=== PATIENT | female | born 1930 | race Caucasian/White ===

== ENCOUNTER 2017-06-02 04:34 | Inpatient (IN) | payer MEDICARE ==
[~2017-06-02] VITALS: Ht 165.1 cm; Wt 97.3 kg
[~2017-06-02 04:34] MED LIST: ACETAMINOPHEN500 MG PO; ALLOPURINOL100 MG PO; AMLODIPINE BES2.5 MG PO; ASPIR 8181 MG PO; Aspirin PO; CICLOPIROX15 GM TOP; DIOVAN HCT 3201 EAC1 PO; DIOVAN HCT 3201 EACH PO; FLEXERIL10 MG PO; FUROSEMIDE20 MG PO; GLIPIZIDE XL2.5 MG PO; GLUCOSAMINE &1 EAC1 PO; GLYBURIDE2.5 MG PO; HYDROCODON-ACE1 EACH PO; IRON325 MG PO; MACROBID 100 M100 MG PO; MELOXICAM7.5 MG PO; METFORMIN HCL500 MG PO; METOCLOPRAMIDE H5 MG PO; MULTIVITAMINS1 EAC8 PO; NAPROXEN PO; OCUVITE TABLET1 EAC1 PO; OMEPRAZOLE20 M1 PO; PRAVASTATIN SOD40 MG PO; TRIAMCINOLONE A15 G3 TOP; TYLENOL # 31 EA PO; VISION FORMULA PO; VITAMIN B-121000 MC1 PO; VOLTAREN100 GM; VOLTAREN100 GM TOP; XARELTO10 MG PO
[2017-06-02 06:13] LABS: BASOPHILS % 0.4 % (0.0-1.0); EOSINOPHILS # (AUTO) 0.2 (0.0-0.4); EOSINOPHILS % 2.2 % (0.0-6.0); HEMATOCRIT 33.1 % (34.2-44.1); HEMOGLOBIN 10.6 g/dL (12.0-16.0); LYMPHOCYTES # (AUTO) 3.5 (1.0-3.2); LYMPHOCYTES % 34.4 % (18.0-39.1); MEAN CORPUSCULAR VOLUME 90.7 fL (81-99); MONOCYTES # (AUTO) 0.8 (0.2-0.8); MONOCYTES % 7.3 % (4.4-11.3); NEUTROPHILS # (AUTO) 5.6 (2.1-6.9); NEUTROPHILS % 54.5 % (38.7-80.0); PLATELET COUNT 328 x10e3/uL (140-360); RED BLOOD COUNT 3.65 x10e6/uL (3.6-5.1); RED CELL DISTRIBUTION WIDTH 13.2 % (11.7-14.4)
[2017-06-02 06:14] LABS: BILIRUBIN,URINE NEGATIVE (NEGATIVE); CLARITY,URINE CLEAR (CLEAR); COLOR,URINE YELLOW (YELLOW); KETONES,URINE NEGATIVE (NEGATIVE); LEUKOCYTE ESTERASE ,URINE 2+ (NEGATIVE); NITRITE,URINE NEGATIVE (NEGATIVE); PROTEIN,URINE DIPSTICK NEGATIVE (NEGATIVE); URINE UROBILINOGEN 0.2 mg/dL (0.2 - 1)
[2017-06-02 06:31] LABS: BACTERIA,URINE FEW /HPF; EPITHELIAL CELLS,URINE FEW /LPF; TRANSITIONAL EPI CELLS,URINE MODERATE; WBC,URINE (MAN) 21-50 /HPF (0-5)
[2017-06-02 06:34] LABS: ALBUMIN 3.8 g/dL (3.5-5.0); ANION GAP 16.7 mmol/L (8-16); CALCIUM 9.8 mg/dL (8.4-10.2); CREATININE, SERUM 1.29 mg/dL (0.57-1.11); POTASSIUM 3.7 mmol/L (3.5-5.1)
[2017-06-02] MEDS ORDERED: CEFTRIAXONE SOD 1 GM VIAL IV STA (06:35)
[2017-06-02 06:40] LABS: CREATINE KINASE MB 1.2 ng/mL (0.00-5.00); TROPONIN I 0.03 ng/mL (0-0.300)
--- NOTE | 2017-06-02 06:48 | Diagnostic Imaging Report ---
Exam: Head CT without contrast History: Dizziness, altered mental status Comparison studies: Head CT 12/16/2016. Technique: Axial images were obtained from the skull base to the vertex. Coronal and sagittal images reconstructed from the axial data. Intravenous contrast: None Findings: Scalp: No abnormalities. Bones: No fractures, blastic or lytic lesions. Brain sulci: Appropriate for age. Ventricles: Normal in size and configuration. No hydrocephalus. Extra-axial spaces: No masses, no fluid collection. Parenchyma: No mass, acute hemorrhage or acute cortical vascular insults. A few scattered subtle hypodensities in the supratentorial white matter are nonspecific but most compatible with chronic small vessel ischemic changes. Sellar/suprasellar region: No abnormalities. Craniocervical junction: Patent foramen magnum. No Chiari one malformation. Incidental findings: Atherosclerotic calcifications in the carotid siphons. IMPRESSION: 1. No acute intracranial abnormalities. 2. Mild chronic microvascular ischemic changes. 3. No changes from the previous head CT of 12/16/2016. Signed by: Dr. Haresh Bueno M.D. on 06/02/2017 6:45 AM
[2017-06-02] MEDS ORDERED: ONDANSETRON HCL INJ 2 MG/ML VIAL IV PRN (07:00)
[2017-06-02] MEDS ORDERED: FAMOTIDINE 20 MG/2 ML VIAL IV SCH (07:00)
[2017-06-02] MEDS ORDERED: DEXTROSE 50% SYRINGE 50 ML IV PRN (07:00)
[2017-06-02] MEDS ORDERED: SODIUM CHLORIDE FLUSH 10 ML SYR INJ PRN (07:00)
--- NOTE | 2017-06-02 07:00 | Diagnostic Imaging Report ---
EXAMINATION: CHEST SINGLE (PORTABLE) INDICATION: Weakness COMPARISON: None FINDINGS: TUBES and LINES: None. LUNGS: Lungs are well inflated. Lungs are clear. There is no evidence of pneumonia or pulmonary edema. PLEURA: No pleural effusion or pneumothorax. HEART AND MEDIASTINUM: Cardiac size is mildly enlarged. There are atherosclerotic calcifications within the aorta. BONES AND SOFT TISSUES: No acute osseous lesion. Soft tissues are unremarkable. UPPER ABDOMEN: No free air under the diaphragm. IMPRESSION: No acute thoracic abnormality. Signed by: Dr. Gus Abarca M.D. on 06/02/2017 6:56 AM
[2017-06-02] MEDS: PANTOPRAZOLE SOD 40 MG TABEC PO SCH (07:30)
[2017-06-02] MEDS: CEFTRIAXONE SOD 1 GM VIAL IV SCH (08:12)
[2017-06-02] MEDS: INSULIN REGULAR, HUMAN 100 UNIT/1 ML 3ML VIAL SQ SCH ×4 (08:12→21:21)
[2017-06-02] MEDS: ALLOPURINOL 100 MG TAB PO SCH (08:13)
[2017-06-02] MEDS: MULTIVITAMINS/MINERALS TAB PO SCH (08:13)
[2017-06-02] MEDS: FERROUS SULFATE 325 MG TAB PO SCH (08:13)
[2017-06-02] MEDS ORDERED: ASPIRIN 81 MG CHEW TAB PO SCH (09:00)
[2017-06-02] MEDS: ASPIRIN 325 MG TAB EC PO SCH ×2 (09:00→17:11)
[2017-06-02 09:05] LABS: CHOL/HDL RATIO 3.4 (3.0-3.6)
[2017-06-02 10:00] VITALS: BP 148/67
[2017-06-02 10:07] VITALS: BP 148/67
[2017-06-02 11:20] VITALS: BP 177/72
--- NOTE | 2017-06-02 11:31 | History and Physical ---
PRIMARY CARE PHYSICIAN: Dr. Aram Nielsen CHIEF COMPLAINT: Confusion and chills. HISTORY OF PRESENT ILLNESS: This is an 86-year-old woman with a history of urinary tract infection, now developing confusion about a week ago, which continues to be febrile. The patient now developing chills and more confusion. Brought to the hospital and found to have a urinary tract infection. There is concern for other abnormalities. She is admitted for further evaluation and management. The patient denies any chest pain or shortness of breath. PAST MEDICAL HISTORY: Diabetes mellitus, type 2, hypertension, vertigo, and urinary tract infection. PAST SURGICAL HISTORY: Hip surgery times 2, hysterectomy. ALLERGIES: PER ELECTRONIC MEDICAL RECORD. FAMILY HISTORY/SOCIAL HISTORY: Patient is . She has 4 children. No alcohol or illicits or cigarettes. MEDICATIONS: Per electronic medical records. REVIEW OF SYSTEMS: Denies any dizziness at this time. PHYSICAL EXAMINATION GENERAL: A tired-appearing woman resting in bed. HEENT: Anicteric. Pupils respond to light. No oral lesions. CARDIOVASCULAR: Normal S1 and S2. LUNGS: Moderate breath sounds. ABDOMEN: Soft, nontender and nondistended. EXTREMITIES: No edema or calf tenderness. NEUROLOGICAL: Alert and oriented times 3. She moves all extremities. SKIN: Dry. PSYCHIATRIC: Normal affect. LABS: Reviewed. MEDICATIONS: Reviewed. ASSESSMENT AND PLAN: This is an 86-year-old woman with: 1. Urinary tract infection: Continue ceftriaxone. Follow up cultures. 2. Acute kidney injury: Rehydrate and reassess. 3. Diabetes mellitus, type 2: Will obtain hemoglobin A1c and lipid panel. Will also resume her home medications. 4. Hypertension: Continue home medication regimen. 5. Gout: Continue allopurinol. 6. Normocytic anemia: Moderate. We will monitor. 7. Confusion a week ago: Computerized tomography scan of the brain is negative for any acute findings. 8. Physical deconditioning: Physical therapy. 9. Prophylaxis: Will use Protonix and sequential compression devices. 10. Disposition: Physical therapy. Intravenous antibiotics. Follow up cultures. Job#: [id number] [place]
[2017-06-02] MEDS: CYANOCOBALAMIN 1,000 MCG TAB PO SCH (12:45)
[2017-06-02] MEDS: OCUVITE PRESERVISION TABLET PO SCH (12:45)
[2017-06-02 15:01] LABS: CREATINE KINASE MB 1.4 ng/mL (0.00-5.00); TROPONIN I 0.022 ng/mL (0-0.300)
[2017-06-02 15:26] VITALS: BP 139/70
[2017-06-02 19:58] VITALS: BP 169/69
[2017-06-02 20:00] VITALS: BP 169/69
[2017-06-02] MEDS ORDERED: METOPROLOL TARTRATE INJ 1 MG/ML VIAL IV ONE (20:15)
[2017-06-02] MEDS ORDERED: AMLODIPINE BESYLATE 5 MG TAB PO STA (21:07)
[2017-06-02] MEDS: HYDROCHLOROTHIAZIDE 25 MG TAB PO SCH (21:17)
[2017-06-02] MEDS: PRAVASTATIN 20 MG TAB PO SCH (21:18)
[2017-06-02] MEDS: VALSARTAN 160 MG TAB PO SCH (21:18)
[2017-06-02 23:01] LABS: CREATINE KINASE MB 1.5 ng/mL (0.00-5.00); TROPONIN I 0.02 ng/mL (0-0.300)
[2017-06-03] VITALS (9 sets, daily range): BP systolic 135–169; BP diastolic 62–91
[2017-06-03 06:17] LABS: CHOL/HDL RATIO 3.3 (3.0-3.6)
[2017-06-03] MEDS: CALCIUM CARBONATE 500 MG CHEWABLE TABS PO SCH ×4 (06:46→21:17)
--- NOTE | 2017-06-03 07:18 | Progress Note ---
DATE: June 03, 2017 TIME: 05:54 a.m. OVERNIGHT: Patient had some dizziness and epigastric discomfort. REVIEW OF SYSTEMS: Denies any chest pain. PHYSICAL EXAMINATION VITAL SIGNS: Reviewed. GENERAL: A tired-appearing woman, resting in bed. HEENT: Anicteric. CARDIOVASCULAR: Normal S1 and S2. Loud murmurs heard. ABDOMEN: Soft, nontender, nondistended. EXTREMITIES: No edema or calf tenderness. NEUROLOGICAL: Alert and oriented times 3. Moves all extremities. SKIN: Dry. PSYCHIATRIC: Flat affect. LABS: Reviewed. MEDICATIONS: Reviewed. ASSESSMENT: An 86-year-old woman with: 1. Urinary tract infection. 2. Acute kidney injury. 3. Diabetes mellitus type 2. 4. Dizziness. 5. Hypertension . 6. Epigastric discomfort. 7. Gout. 8. Normocytic anemia. 9. Confusion 1 week ago. 10. Physical deconditioning. PLAN 1. Hemoglobin A1c was 6.5, LDL 69 and triglycerides of 201, all at goal. 2. Acute kidney injury. Will follow up renal function this morning. 3. Continue physical therapy. 4. Pepcid and Tums for reflux symptoms. 5. All cultures remain negative today. 6. CT of the brain negative for any acute findings. 7. Will continue oral Protonix. 8. Continue IV ceftriaxone. 9. Continue SCD. 10. Follow up orthostatic vitals this morning. Possible discharge later. Job#: [id number]
[2017-06-03] MEDS ORDERED: VALSARTAN 160 MG TAB PO SCH (09:00)
[2017-06-03] MEDS ORDERED: HYDROCHLOROTHIAZIDE 25 MG TAB PO SCH (09:00)
[2017-06-03] MEDS ORDERED: AMLODIPINE BESYLATE 5 MG TAB PO ONE (09:00)
[2017-06-03] MEDS ORDERED: METOPROLOL TARTRATE 50 MG TAB PO SCH (09:00)
[2017-06-03] MEDS: PANTOPRAZOLE SOD 40 MG TABEC PO SCH (09:22)
[2017-06-03] MEDS: HYDROCHLOROTHIAZIDE 25 MG TAB PO SCH (09:23)
[2017-06-03] MEDS: FERROUS SULFATE 325 MG TAB PO SCH (09:23)
[2017-06-03] MEDS: ALLOPURINOL 100 MG TAB PO SCH (09:23)
[2017-06-03] MEDS: ASPIRIN 325 MG TAB EC PO SCH ×2 (09:23→17:00)
[2017-06-03] MEDS: INSULIN REGULAR, HUMAN 100 UNIT/1 ML 3ML VIAL SQ SCH ×4 (09:23→21:00)
[2017-06-03] MEDS: OCUVITE PRESERVISION TABLET PO SCH (09:23)
[2017-06-03] MEDS: MULTIVITAMINS/MINERALS TAB PO SCH (09:23)
[2017-06-03] MEDS: CYANOCOBALAMIN 1,000 MCG TAB PO SCH (09:23)
[2017-06-03] MEDS: VALSARTAN 160 MG TAB PO SCH (09:23)
[2017-06-03] MEDS: CEFTRIAXONE SOD 1 GM VIAL IV SCH (11:15)
[2017-06-03] MEDS: PRAVASTATIN 20 MG TAB PO SCH (21:17)
[2017-06-04] VITALS (10 sets, daily range): BP systolic 128–162; BP diastolic 58–78
[2017-06-04] MEDS: CEFTRIAXONE SOD 1 GM VIAL IV SCH (06:10)
[2017-06-04] MEDS: PANTOPRAZOLE SOD 40 MG TABEC PO SCH (08:59)
[2017-06-04] MEDS: ASPIRIN 325 MG TAB EC PO SCH ×2 (08:59→16:50)
[2017-06-04] MEDS: INSULIN REGULAR, HUMAN 100 UNIT/1 ML 3ML VIAL SQ SCH ×4 (08:59→21:46)
[2017-06-04] MEDS: MULTIVITAMINS/MINERALS TAB PO SCH (09:00)
[2017-06-04] MEDS: CYANOCOBALAMIN 1,000 MCG TAB PO SCH (09:00)
[2017-06-04] MEDS: CALCIUM CARBONATE 500 MG CHEWABLE TABS PO SCH ×3 (09:00→21:45)
[2017-06-04] MEDS: OCUVITE PRESERVISION TABLET PO SCH (09:00)
[2017-06-04] MEDS: HYDROCHLOROTHIAZIDE 25 MG TAB PO SCH (09:00)
[2017-06-04] MEDS: VALSARTAN 160 MG TAB PO SCH (09:00)
[2017-06-04] MEDS: ALLOPURINOL 100 MG TAB PO SCH (09:00)
[2017-06-04] MEDS: FERROUS SULFATE 325 MG TAB PO SCH (09:00)
[2017-06-04 09:17] LABS: ANION GAP 14.1 mmol/L (8-16); CALCIUM 10.1 mg/dL (8.4-10.2); CREATININE, SERUM 1.21 mg/dL (0.57-1.11); MAGNESIUM 1.7 MG/DL (1.3-2.1); PHOSPHORUS 4.1 MG/DL (2.3-4.7); POTASSIUM 4.1 mmol/L (3.5-5.1)
[2017-06-04] MEDS ORDERED: SODIUM CHLORIDE 0.9% 1000ML 500 ML IV SCH (11:45)
[2017-06-04] MEDS: SODIUM CHLORIDE 0.9% 1000ML 1,000 ML IV SCH (13:00)
[2017-06-04] MEDS: PRAVASTATIN 20 MG TAB PO SCH (21:45)
[2017-06-05] VITALS (29 sets, daily range): BP systolic 111–170; BP diastolic 43–72
[2017-06-05] MEDS: SODIUM CHLORIDE 0.9% 1000ML 1,000 ML IV SCH ×2 (00:34→21:01)
[2017-06-05 06:04] LABS: BASOPHILS % 0.3 % (0.0-1.0); EOSINOPHILS # (AUTO) 0.2 (0.0-0.4); EOSINOPHILS % 1.8 % (0.0-6.0); HEMATOCRIT 28.8 % (34.2-44.1); HEMOGLOBIN 9.5 g/dL (12.0-16.0); LYMPHOCYTES # (AUTO) 3.3 (1.0-3.2); LYMPHOCYTES % 29.1 % (18.0-39.1); MEAN CORPUSCULAR HEMOGLOBIN 29.4 pg (28-32); MEAN CORPUSCULAR VOLUME 89.2 fL (81-99); MONOCYTES # (AUTO) 0.9 (0.2-0.8); MONOCYTES % 7.6 % (4.4-11.3); NEUTROPHILS # (AUTO) 6.8 (2.1-6.9); NEUTROPHILS % 59.7 % (38.7-80.0); PLATELET COUNT 272 x10e3/uL (140-360); RED BLOOD COUNT 3.23 x10e6/uL (3.6-5.1)
[2017-06-05] MEDS: CEFTRIAXONE SOD 1 GM VIAL IV SCH (06:51)
[2017-06-05] MEDS ORDERED: SODIUM CHLORIDE 0.9% 1000ML 500 ML IV STA (07:27)
--- NOTE | 2017-06-05 07:45 | Progress Note ---
DATE: June 04, 2017 TIME: 6 a.m. OVERNIGHT: Still dizzy. REVIEW OF SYSTEMS: Denies any chest pain. PHYSICAL EXAMINATION VITAL SIGNS: Reviewed. GENERAL: A tired-appearing woman resting in bed. HEENT: Anicteric. CARDIOVASCULAR: Normal S1 and S2. LUNGS: Moderate breath sounds. ABDOMEN: Soft, nontender and nondistended. EXTREMITIES: No edema. SKIN: Dry. PSYCHIATRIC: Flat affect. LABS: Reviewed. MEDICATIONS: Reviewed. ASSESSMENT: An 86-year-old woman with: 1. Urinary tract infection. 2. Acute kidney injury. 3. Diabetes mellitus, type 2. 4. Dizziness. 5. Hypertension. 6. Epigastric discomfort. 7. Gout. 8. Normocytic anemia. 9. Confusion. 10. Physical deconditioning. PLAN 1. Continue antibiotics. 2. Continue IV fluids. 3. Orthostatics are positive. Give IV fluid bolus and IV fluids. 4. Hemoglobin A1c 6.5, LDL 69. 5. Reassess orthostatic vitals tomorrow morning. 6. Renal function improving. 7. Physical therapy. Job#: [id number] [place]
--- NOTE | 2017-06-05 07:56 | Progress Note ---
DATE: June 05, 2017 TIME: 7:30 a.m. OVERNIGHT: Dizziness has resolved, but now mildly short of breath. REVIEW OF SYSTEMS: Denies any chest pain. PHYSICAL EXAMINATION: VITAL SIGNS: Reviewed. GENERAL APPEARANCE: Tired-appearing woman resting in bed. HEENT: Anicteric. CARDIOVASCULAR: Normal S1 and S2. LUNGS: Bilateral breath sounds. ABDOMEN: Soft, nontender, nondistended. EXTREMITIES: No edema or calf tenderness. NEUROLOGICAL: Alert and oriented x3. Moving all extremities. SKIN: Dry. PSYCHIATRIC: Normal affect. LABS: Reviewed. MEDICATIONS: Reviewed. ASSESSMENT: An 86-year-old woman: 1. Escherichia coli urinary tract infection. 2. Acute kidney injury. 3. Diabetes mellitus type 2. 4. Dizziness/benign paroxysmal positional vertigo. 5. Hypertension. 6. Bradycardia. 7. Epigastric discomfort. 8. Gout. 9. Shortness of breath. 10. Confusion . 11. Physical deconditioning. PLAN: 1. Hemoglobin A1c 6.5, LDL 69, triglycerides 201. 2. Continue ceftriaxone for E. coli urinary tract infection. 3. Continue IV fluids. 4. Obtain echocardiogram and cardiology consultation. Obtain chest x-ray. 5. Meclizine q.8h. for dizziness and BPPV. 6. Physical therapy. 7. Incentive spirometry. Job#: [id number]
[2017-06-05] MEDS: VALSARTAN 160 MG TAB PO SCH (08:53)
[2017-06-05] MEDS: FERROUS SULFATE 325 MG TAB PO SCH (08:53)
[2017-06-05] MEDS: MULTIVITAMINS/MINERALS TAB PO SCH (08:53)
[2017-06-05] MEDS: PANTOPRAZOLE SOD 40 MG TABEC PO SCH (08:53)
[2017-06-05] MEDS: ASPIRIN 325 MG TAB EC PO SCH ×2 (08:54→17:00)
[2017-06-05] MEDS: CALCIUM CARBONATE 500 MG CHEWABLE TABS PO SCH ×3 (08:54→20:39)
[2017-06-05] MEDS: OCUVITE PRESERVISION TABLET PO SCH (08:54)
[2017-06-05] MEDS: ALLOPURINOL 100 MG TAB PO SCH (08:54)
[2017-06-05] MEDS: CYANOCOBALAMIN 1,000 MCG TAB PO SCH (08:54)
[2017-06-05] MEDS: INSULIN REGULAR, HUMAN 100 UNIT/1 ML 3ML VIAL SQ SCH ×4 (09:10→20:41)
--- NOTE | 2017-06-05 10:36 | Diagnostic Imaging Report ---
PROCEDURE:CHEST SINGLE (PORTABLE) TECHNIQUE:Portable AP chest INDICATION:Shortness of breath COMPARISON:[facility], DX, CHEST SINGLE (PORTABLE), 06/02/2017, 6:23. FINDINGS: The lungs are clear and symmetrically inflated. No pleural effusions. Prominent cardiac silhouette with mild tortuosity of the thoracic aorta. Mild aortic arch calcification. Normal central vasculature. Intact skeleton. CONCLUSION: Mild cardiomegaly without evidence of pulmonary edema. Dictated by: Gregory Madrigal M.D. on 06/05/2017 at 10:45 Electronically approved by: Gregory Madrigal M.D. on 06/05/2017 at 10:45
--- NOTE | 2017-06-05 11:30 | Consultation ---
DATE OF CONSULTATION: June 05, 2017 REASON FOR CONSULTATION: Hypertension and bradycardia. CONSULTING PHYSICIAN: Dr. Blake Kohler. HISTORY OF PRESENTING ILLNESS: This is an 86-year-old female that presented with confusion and dizziness. According to the patient and family at the bedside, she stated that she had been having dizziness been going on for over 1 month. She stands up at home; she feels like she is about to fall and she has been confused off and on. Thus, she was brought in to the emergency room for evaluation. This morning, she was found to have dizziness, symptomatic bradycardia, hypertension, and cardiology was consulted. She was given some NS bolus and blood pressure came back up. She also complained of epigastric pain that comes and goes. She was also found to have UTI and she is on antibiotics for that. She denies any palpitation, any headache or diaphoresis. EKG showed AV block 2:1. PAST MEDICAL HISTORY: Diabetes, hypertension, diabetic neuropathy, vertigo, UTI, gout, anemia, and renal insufficiency. PAST SURGICAL HISTORY: Hip surgery x2 and hysterectomy. FAMILY HISTORY: Hypertension and diabetes. SOCIAL HISTORY: She lives at home by herself. No smoking, no drinking. MEDICATIONS: See med list. ALLERGIES: SHE IS ALLERGIC TO ERYTHROMYCIN. REVIEW OF SYSTEMS: Negative except as mentioned above. Is positive for symptomatic bradycardia. PHYSICAL EXAMINATION VITAL SIGNS: Temperature 97, heart rate 47, blood pressure 123/60, respirations 16. Oxygen saturation 95% on room air. GENERAL: She is alert, awake, and oriented x3. HEENT: Mucous membrane moist. NECK: Supple. LUNGS: With decreased breath sounds. CARDIOVASCULAR: Irregular. ABDOMEN: Soft. NEUROLOGICAL: Intact. She is able to move all extremities. EXTREMITIES: Bilateral lower extremities with trace edema. LABS: Sodium 137, potassium 4.1, chloride 101, CO2 26, BUN 22, creatinine 1.21, glucose 187. White blood cell 11.3, hemoglobin 9.5, hematocrit 28.8, platelet 272,000. IMPRESSION 1. 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 2. Dizziness. 3. Symptomatic bradycardia. 4. History of gout. 5. Diabetes. 6. Renal insufficiency. 7. Hypertension. ASSESSMENT PLAN: Will get an echo to assess the LV and the valve function. Will get bilateral carotid Doppler. Check orthostatic blood pressure. Possible permanent pacemaker placement if family agrees. Avoid AV blockers. Further cardiac workup pending clinical course. Thank you for this consultation. Dictated by Nancy Ibarra NP Job#: [id number] [place]
[2017-06-05] MEDS ORDERED: LIDOCAINE 1% W/EPINEPHRINE 20 ML VIAL ONE (11:46)
[2017-06-05] MEDS ORDERED: IOPAMIDOL 300MG/ML 50ML INFUS..BTL IV ONE (11:47)
[2017-06-05] MEDS ORDERED: SODIUM CHLORIDE 0.9% 500ML 1,000 ML ONE (11:47)
[2017-06-05] MEDS ORDERED: BACITRACIN 50,000 UNIT VIAL ONE (11:58)
[2017-06-05] MEDS ORDERED: SODIUM CHLORIDE 0.9% 1000ML 1,000 ML ONE (11:58)
[2017-06-05] MEDS ORDERED: FENTANYL CITRATE/PF 100MCG/2 ML INJ ONE (12:22)
[2017-06-05] MEDS ORDERED: MIDAZOLAM HCL 2 MG/2 ML VIAL ONE (12:22)
[2017-06-05] MEDS ORDERED: CEFAZOLIN SOD 2 GM/D5W 50ML 50 ML IV ONE (12:25)
[2017-06-05] MEDS: MECLIZINE HCL 12.5 MG TAB PO SCH ×2 (14:00→21:01)
[2017-06-05] MEDS: PRAVASTATIN 20 MG TAB PO SCH (20:39)
[2017-06-06] VITALS (25 sets, daily range): BP systolic 113–146; BP diastolic 45–74
[2017-06-06 05:37] LABS: BASOPHILS % 0.4 % (0.0-1.0); EOSINOPHILS # (AUTO) 0.2 (0.0-0.4); HEMATOCRIT 27.8 % (34.2-44.1); HEMOGLOBIN 9.1 g/dL (12.0-16.0); LYMPHOCYTES # (AUTO) 2.8 (1.0-3.2); LYMPHOCYTES % 28.9 % (18.0-39.1); MEAN CORPUSCULAR HEMOGLOBIN 29.6 pg (28-32); MEAN CORPUSCULAR HGB CONC 32.7 g/dL (31-35); MEAN CORPUSCULAR VOLUME 90.6 fL (81-99); MONOCYTES % 10.3 % (4.4-11.3); NEUTROPHILS # (AUTO) 5.5 (2.1-6.9); NEUTROPHILS % 57.8 % (38.7-80.0); PLATELET COUNT 291 x10e3/uL (140-360); RED BLOOD COUNT 3.07 x10e6/uL (3.6-5.1); RED CELL DISTRIBUTION WIDTH 13.2 % (11.7-14.4)
[2017-06-06] MEDS: MECLIZINE HCL 12.5 MG TAB PO SCH ×3 (06:01→21:57)
[2017-06-06] MEDS: CEFTRIAXONE SOD 1 GM VIAL IV SCH (06:01)
[2017-06-06] MEDS: PANTOPRAZOLE SOD 40 MG TABEC PO SCH (07:30)
[2017-06-06] MEDS: INSULIN REGULAR, HUMAN 100 UNIT/1 ML 3ML VIAL SQ SCH ×4 (07:30→21:00)
--- NOTE | 2017-06-06 08:22 | Progress Note ---
DATE: June 06, 2017 TIME: 6:30 a.m. OVERNIGHT: Patient had permanent pacemaker placed. REVIEW OF SYSTEMS: Denies any shortness of breath. PHYSICAL EXAMINATION VITAL SIGNS: Have been reviewed. GENERAL: A tired-appearing woman resting in bed. HEENT: Anicteric. CARDIOVASCULAR: Normal S1 and S2. She has a left-sided chest cardiac device in place with dressing overlying. LUNGS: Moderate breath sounds. ABDOMEN: Soft, nontender and nondistended. EXTREMITIES: No edema or calf tenderness. NEUROLOGICAL: Alert and oriented times 3. Moving all extremities. SKIN: Dry. PSYCHIATRIC: Normal affect. LABS: Reviewed. MEDICATIONS: Reviewed. ASSESSMENT AND PLAN: This is an 86-year-old woman with: 1. Atrioventricular block 2:1: Status post permanent pacemaker placement. 2. Symptomatic bradycardia. 3. Escherichia coli urinary tract infection. 4. Acute kidney injury. 5. Diabetes mellitus, type 2. 6. Dizziness/BPV. 7. Hypertension. 8. Gout. 9. Physical deconditioning. 10. Acute delirium. PLAN 1. Patient is status post permanent pacemaker placement. Will continue to monitor. 2. Continue ceftriaxone for E. coli urinary tract infection. 3. Patient received fluids for dehydration and positive orthostatic hypotension. 4. Continue meclizine p.r.n. 5. Continue physical therapy. 6. Hemoglobin is stable this morning. 7. Glucose is controlled at 139-182. 8. Obtain BMP to reassess renal function. 9. Follow up 2-D echocardiogram report. 10. Critical care time more than 35 minutes. Job#: [id number] [place]
[2017-06-06] MEDS: SODIUM CHLORIDE 0.9% 1000ML 1,000 ML IV SCH (08:27)
[2017-06-06] MEDS: CYANOCOBALAMIN 1,000 MCG TAB PO SCH (09:11)
[2017-06-06] MEDS: MULTIVITAMINS/MINERALS TAB PO SCH (09:11)
[2017-06-06] MEDS: ASPIRIN 325 MG TAB EC PO SCH ×2 (09:11→16:33)
[2017-06-06] MEDS: CALCIUM CARBONATE 500 MG CHEWABLE TABS PO SCH ×3 (09:11→21:12)
[2017-06-06] MEDS: OCUVITE PRESERVISION TABLET PO SCH (09:11)
[2017-06-06] MEDS: FERROUS SULFATE 325 MG TAB PO SCH (09:11)
[2017-06-06] MEDS: ALLOPURINOL 100 MG TAB PO SCH (09:11)
[2017-06-06] MEDS: VALSARTAN 160 MG TAB PO SCH (11:18)
[2017-06-06] MEDS: CEPHALEXIN 500 MG CAP PO SCH ×2 (14:37→21:57)
--- NOTE | 2017-06-06 16:16 | Operative Report ---
DATE OF PROCEDURE: June 05, 2017 PROCEDURE PERFORMED: DDD pacemaker implantation. INDICATIONS: Second-degree AV block with symptoms. DESCRIPTION OF PROCEDURE: After informed consent, patient was brought to the cardiac catheterization laboratory and placed on the table. Left upper chest was painted and draped in a sterile fashion. Patient was given 2 g of Ancef prior to the start of the procedure. Lidocaine was injected into the left upper chest for local anesthesia. The incision was made with #11 blade. A pocket was fashioned by sharp and blunt dissection. The left subclavian vein was accessed by Seldinger technique and a guidewire was placed. Another access of the left subclavian was made and another guidewire was placed. A 7-Samoan sheath was introduced into one of the retained guidewires. A ventricular lead was advanced through the sheath and placed into the right ventricular apex. The lead was screwed in by active fixation. Thresholds were checked. The sheath was peeled off. Another 7-Samoan sheath was introduced over the previously retained guidewire. An atrial lead was advanced through the sheath and anchored to the atrial muscle by active fixation. Thresholds were checked. The sheath was peeled off. The leads were anchored to the underlying muscle using 0 silk. The pocket was irrigated with antibiotic solution. The leads were connected to the generator and the generator was anchored to the underlying muscle using 0 silk. The subcutaneous tissue was closed using 2-0 Vicryl and skin was closed using 4-0 Vicryl. The wound was cleaned and dressed in a sterile fashion. Patient tolerated the procedure without any complication. REPORT: Skin Lifter Bacon is [employer], model number was L311, serial number was [id number]. Model name was [employer] DR HAY[place]OD. LEAD DATA: Atrial lead, model number was 7740. Serial number was [id number]. Atrial lead model number was 7741. Serial number was [id number]. MEASURED DATA: Right atrium intrinsic was 3.2 millivolts. Threshold was at 1 volt at 0.5 milliseconds. Impedance was 634. Right ventricular intrinsic was 10.6 millivolts. Threshold was 1.1 volts at 0.5 milliseconds. Impedance was 907. Current in the right atrium was 1.6 milliamps and the ventricle is 1.3 milliamps. Low rate limit was 60. Upper rate limit was 120. PROGRAM PARAMETERS: Right atrium was 0.75 millivolts and output is 3.4 volts at 0.4 milliseconds. Right ventricle sensitivity was 2.5 millivolts, program was 3.5 volts at 0.4 milliseconds. Job#: [id number] [place]
[2017-06-06] MEDS: PRAVASTATIN 20 MG TAB PO SCH (21:12)
[2017-06-07] VITALS (7 sets, daily range): BP systolic 126–147; BP diastolic 60–80
[2017-06-07] MEDS ORDERED: TRAMADOL HCL 50 MG TAB PO PRN (00:45)
[2017-06-07] MEDS: CEPHALEXIN 500 MG CAP PO SCH (06:22)
[2017-06-07] MEDS: CEFTRIAXONE SOD 1 GM VIAL IV SCH (06:22)
[2017-06-07] MEDS: MECLIZINE HCL 12.5 MG TAB PO SCH (06:24)
[2017-06-07] MEDS: PANTOPRAZOLE SOD 40 MG TABEC PO SCH (07:30)
[2017-06-07] MEDS: INSULIN REGULAR, HUMAN 100 UNIT/1 ML 3ML VIAL SQ SCH ×2 (07:30→11:30)
[2017-06-07] MEDS: VALSARTAN 160 MG TAB PO SCH (09:00)
[2017-06-07] MEDS: ASPIRIN 325 MG TAB EC PO SCH (09:00)
[2017-06-07] MEDS: CYANOCOBALAMIN 1,000 MCG TAB PO SCH (09:00)
[2017-06-07] MEDS: OCUVITE PRESERVISION TABLET PO SCH (09:00)
[2017-06-07] MEDS: FERROUS SULFATE 325 MG TAB PO SCH (09:00)
[2017-06-07] MEDS: ALLOPURINOL 100 MG TAB PO SCH (09:00)
[2017-06-07] MEDS: MULTIVITAMINS/MINERALS TAB PO SCH (09:00)
[2017-06-07] MEDS: CALCIUM CARBONATE 500 MG CHEWABLE TABS PO SCH (09:00)
[2017-06-07] MEDS ORDERED: ULTRAM 50MG50 MG PO (09:06)
[2017-06-07 11:06] LABS: ANION GAP 13.2 mmol/L (8-16); CALCIUM 9.3 mg/dL (8.4-10.2); CREATININE, SERUM 1.09 mg/dL (0.57-1.11); POTASSIUM 4.2 mmol/L (3.5-5.1)
== END 2017-06-07 13:17 | disposition home or self-care (01) | DRG 243 ==
LOC: ER 04:34 → ERHOLD 06:51 → IMCU 08:13 → ICU 06-05 14:15 → OBSVTOIN 06-05 16:21 → MED/SURG2 06-06 11:31
PROVIDERS: ADMIT Internal Medicine; ATTEND Internal Medicine
PROC: 0JH606Z Insertion of Pacemaker, Dual Chamber into Chest Subcutaneous Tissue and Fascia, Open Approach (ICD-10-PCS; principal; 2017-06-05)
PROC: 02HK3JZ Insertion of Pacemaker Lead into Right Ventricle, Percutaneous Approach (ICD-10-PCS; 2017-06-05)
PROC: 02H63JZ Insertion of Pacemaker Lead into Right Atrium, Percutaneous Approach (ICD-10-PCS; 2017-06-05)
DX: I44.1 Atrioventricular block, second degree (principal); N39.0 Urinary tract infection, site not specified; N17.9 Acute kidney failure, unspecified; E11.40 Type 2 diabetes mellitus with diabetic neuropathy, unspecified; B96.20 Unspecified Escherichia coli [E. coli] as the cause of diseases classified elsewhere; I10 Essential (primary) hypertension; D64.9 Anemia, unspecified; M10.9 Gout, unspecified; R41.0 Disorientation, unspecified; E86.0 Dehydration; H81.10 Benign paroxysmal vertigo, unspecified ear; Z79.82 Long term (current) use of aspirin; Z88.1 Allergy status to other antibiotic agents
CPT/HCPCS: 36415; 70450; 71010; 80048; 80053; 80061; 81001; 82550; 82553; 82948; 83036; 83735; 84100; 84484; 85025; 87086; 87186; 93005; 93306; 93880; 96360; 96372; 99285; C1898; G0378; J0696; J2250; J2405; J7030; J7040

== ENCOUNTER 2017-06-26 18:32 | Emergency (ER) | payer MEDICARE ==
[~2017-06-26] VITALS: Ht 165.1 cm; Wt 97.1 kg
[~2017-06-26 18:32] MED LIST changes: +ULTRAM 50MG50 MG PO
--- OUTSIDE RECORDS SUMMARY | 2017-06-26 18:35 | XMS REPORT ---
[facility] Address Unknown Phone Unavailable Care Team Providers Care Slots Manager Name Role Phone MYA MILLARD Unavailable Unavailable Problems This patient has no known problems. Allergies, Adverse Reactions, Alerts This patient has no known allergies or adverse reactions. Medications This patient has no known medications. Results Test Description Test Time Test Comments Text Results Atomic Results Result Comments CHEST SINGLE (PORTABLE) [facility] [address] [address] Patient Name: SHERLY CASTELLANOS MR #: [id number] : 1930 Age/Sex: 86/F Req #: [id number] Adm Physician: MYA MILLARD MD Ordered by: MYA MILLARD MD Report #: [id number] Location: [facility] Room/Bed: [place] [address] _ Procedure: [id number] DX/CHEST SINGLE (PORTABLE) Exam Date : 06/05/17 Exam Time: 1015 REPORT STATUS: Signed PROCEDURE: CHEST SINGLE (PORTABLE) TECHNIQUE: Portable AP chest INDICATION: Shortness of breath COMPARISON: [facility], DX , CHEST SINGLE (PORTABLE), 06/02/2017, 6:23. FINDINGS: The lungs are clear and symmetrically inflated. No pleural effusions. Prominent cardiac silhouette with mild tortuosity of the thoracic aorta. Mild aortic arch calcification. Normal central vasculature. Intact skeleton. CONCLUSION: Mild cardiomegaly without evidence of pulmonary edema. Dictated by: Mark Madrigal M.D. on 06/05/2017 at 10:45 Electronically approved by: Mark Madrigal M.D. on 06/05/2017 at 10:45 Dictated By: MARK MADRIGAL MD 1045 Transcribed By: VERITO on 06/05/17 1045 COPY TO: MYA MILLARD MD CT BRAIN WO [place] [address] Patient Name: SHERLY CASTELLANOS MR #: [id number] : 1930 Age/Sex: 86/F Req #: [id number] Adm Physician: Ordered by: STEVE BURGER MD Report #: [id number] Location: ER Room/Bed: Procedure: [id number] CT/CT BRAIN WO Exam Date: 06/02/17 Exam Time: 0610 REPORT STATUS: Signed Exam: Head CT without contrast History: Dizziness, altered mental status Comparison studies: Head CT 12/16/2016. Technique: Axial images were obtained from the skull base to the vertex. Coronal and sagittal images reconstructed from the axial data. Intravenous contrast: None Findings: Scalp: No abnormalities. Bones: No fractures, blastic or lytic lesions. Brain sulci: Appropriate for age. Ventricles: Normal in size and configuration. No hydrocephalus. Extra-axial spaces: No masses, no fluid collection. Parenchyma: No mass, acute hemorrhage or acute cortical vascular insults. A few scattered subtle hypodensities in the supratentorial white matter are nonspecific but most compatible with chronic small vessel ischemic changes. Sellar/suprasellar region: No abnormalities. Craniocervical junction: Patent foramen magnum. No Chiari one malformation. Incidental findings: Atherosclerotic calcifications in the carotid siphons. IMPRESSION: 1. No acute intracranial abnormalities. 2. Mild chronic microvascular ischemic changes. 3. No changes from the previous head CT of 12/16/2016. Signed by: Dr. Anant Bueno M.D. on 06/02/2017 6:45 AM Dictated By: ANANT BUENO MD 4 Transcribed By: NEO on 06/02/17644 COPY TO: STEVE BURGER MD CHEST SINGLE (PORTABLE) [place] [address] Patient Name: SHERLY CASTELLANOS MR #: [id number] : 1930 Age/Sex: 86/F Req #: [id number] Adm Physician: MYA MILLARD MD Ordered by: STEVE BURGER MD Report #: [id number] Location: [facility] Room/Bed: [place] [address] Procedure: [id number] DX/CHEST SINGLE ( PORTABLE) Exam Date: 06/02/17 Exam Time: 617 REPORT STATUS: Signed EXAMINATION: CHEST SINGLE (PORTABLE) INDICATION: Weakness COMPARISON: None FINDINGS: TUBES and LINES: None. LUNGS: Lungs are well inflated. Lungs are clear. There is no evidence of pneumonia or pulmonary edema. PLEURA: No pleural effusion or pneumothorax. HEART AND MEDIASTINUM: Cardiac size is mildly enlarged. There are atherosclerotic calcifications within the aorta. BONES AND SOFT TISSUES: No acute osseous lesion. Soft tissues are unremarkable. UPPER ABDOMEN: No free air under the diaphragm. IMPRESSION: No acute thoracic abnormality. Signed by: Dr. Gus Abarca M.D. on 06/02/2017 6:56 AM Dictated By: GUS GRIFFITHS MD 5 Transcribed By: NEO on 06/02/17655 COPY TO: STEVE BURGER MD
[2017-06-26] MEDS ORDERED: OXYMETAZOLINE HCL 0.05% NAS 1 SPRAY BTL ONE (18:58)
[2017-06-26] MEDS ORDERED: OXYMETAZOLINE HCL 0.05% NAS 1 SPRAY BTL SCH (19:15)
[2017-06-26 19:22] LABS: BASOPHILS # (AUTO) 0.1 (0.0-0.1); BASOPHILS % 0.5 % (0.0-1.0); EOSINOPHILS # (AUTO) 0.3 (0.0-0.4); EOSINOPHILS % 2.6 % (0.0-6.0); HEMATOCRIT 30.6 % (34.2-44.1); HEMOGLOBIN 9.8 g/dL (12.0-16.0); LYMPHOCYTES # (AUTO) 3.5 (1.0-3.2); MEAN CORPUSCULAR HEMOGLOBIN 29.3 pg (28-32); MEAN CORPUSCULAR VOLUME 91.6 fL (81-99); MONOCYTES # (AUTO) 0.7 (0.2-0.8); MONOCYTES % 6.9 % (4.4-11.3); NEUTROPHILS # (AUTO) 5.9 (2.1-6.9); NEUTROPHILS % 56.5 % (38.7-80.0); PLATELET COUNT 400 x10e3/uL (140-360); RED BLOOD COUNT 3.34 x10e6/uL (3.6-5.1); RED CELL DISTRIBUTION WIDTH 13.8 % (11.7-14.4)
[2017-06-26 19:33] LABS: INR 0.97; PROTHROMBIN TIME 13.4 seconds (11.9-14.5)
[2017-06-26 19:34] LABS: PARTIAL THROMBOPLASTIN TIME 36.7 seconds (23.8-35.5)
[2017-06-26 19:44] LABS: ALBUMIN 4.2 g/dL (3.5-5.0); ALBUMIN/GLOBULIN RATIO 1.1 (0.8-2.0); ANION GAP 18.1 mmol/L (8-16); CALCIUM 10.2 mg/dL (8.4-10.2); CREATININE, SERUM 1.2 mg/dL (0.57-1.11); POTASSIUM 4.1 mmol/L (3.5-5.1)
== END 2017-06-26 21:14 | disposition home or self-care (01) ==
LOC: ER 18:32
DX: R04.0 Epistaxis (principal); Z95.810 Presence of automatic (implantable) cardiac defibrillator
CPT/HCPCS: 36415; 80053; 85025; 85610; 85730; 99283

== ENCOUNTER 2020-02-21 17:25 | Inpatient (IN) | payer MEDICARE ==
[~2020-02-21] VITALS: Ht 165.1 cm; Wt 80.1 kg
--- OUTSIDE RECORDS SUMMARY | 2020-02-21 17:52 | XMS REPORT | Continuity of Care Document ---
Author Author [facility] t Organization [facility] Address [address] [place] [address] Phone Unavailable Care Team Providers Care Warehouse Director Name Role Phone CASIE NIELSEN DO PCP BLAKE MILLARD Attphys Unavailable BLAKE MILLARD Admphys Unavailable Payers Payer Name Policy Type Policy Number Effective Date Expiration Date Kan Serrano [facility] [id number] 2015 00:00:00 [facility] Problems Condition Name Condition Details Condition Category Status Onset Date Resolution Date Last Treatment Date Treating Clinician Comments Source Bursitis Bursitis Problem Active [facility] Chest pain Chest pain Problem Active [facility] Dizziness Dizziness Problem Active [facility] Tendinitis Tendonitis Problem Active [facility] Urinary tract infection UTI (urinary tract infection) Problem Active [facility] Allergies, Adverse Reactions, Alerts Allergy Name Allergy Type Status Severity Reaction(s) Onset Date Inacti ve Date Treating Clinician Comments Source lactose FA Active SV 2019-12-20 00:00:00 [facility] Erythromycin base Allergy to Substance Active 2017-06-02 00 :00:00 [facility] Medications Ordered Medication Name Filled Medication Name Start Date Stop Da te Current Medication? Ordering Clinician Indication Dosage Frequency Signature (SIG) Comments Components Source Tramadol Hcl (Ultram 50MG*) 50 Mg Tab Tramadol Hcl (Ultram 5 0MG*) 50 Mg Tab 2017-06-07 00:00:00 Yes Blake Millard Md 50 Every 8 Hours as needed for Pain [facility] Aspirin 325 Mg Tab Aspirin 325 Mg Tab 2015-11-08 00:00:00 00:00:00 No Asad Esparza Pa 325 Twice A Day [facility] Allopurinol 100 Mg Tablet Allopurinol 100 Mg Tablet Yes 100 Daily [facility] Amlodipine Besylate 2.5 Mg Tablet Amlodipine Besylate 2.5 Mg Tablet Yes 2.5 Daily [facility] Ciclopirox Olamine (Ciclopirox) 15 Gm Cream..g. Ciclop irox Olamine (Ciclopirox) 15 Gm Cream..g. Yes 1 Bidprn [facility] Cyanocobalamin (Vitamin B-12) (Vitamin B-12) 1,000 Mcg Tablet.er Cyanocobalamin (Vitamin B-12) (Vitamin B-12) 1,000 Mcg Tablet.er Yes 1000 Daily [facility] Ferrous Sulfate (Iron) 325 Mg Capsule.er Ferrous Sulfa te (Iron) 325 Mg Capsule.er Yes 325 Daily [facility] Glipizide (Glipizide Xl) 2.5 Mg Tabcr Glipizide (Glipizide Xl) 2.5 Mg Tabcr Yes 2.5 Twice A Day [facility] Gluc 2KCL/Chondr/Demetrius Hy/Hy Ac (Glucosamine & Chondroi tin Cap) 1 Each Capsule Gluc 2KCL/Chondr/Demetrius Hy/Hy Ac (Glucosamine & Chondroitin Cap) 1 Each Capsule Yes 1 Twice A Day [facility] Metformin Hcl 500 Mg Tablet Metformin Hcl 500 Mg Tablet Yes 500 Three Times A Day [facility] Multivitamin (Multivitamins) 1 Each Tablet Multivitami n (Multivitamins) 1 Each Tablet Yes 1 Daily [facility] Omeprazole 20 Mg Tablet. Omeprazole 20 Mg Tablet. Yes 20 Daily [facility] Pravastatin Sodium 40 Mg Tablet Pravastatin Sodium 40 Mg Tablet Yes 40 Daily [facility] Triamcinolone (Triamcinolone Acetonide) 15 Gm Oint Tri amcinolone (Triamcinolone Acetonide) 15 Gm Oint Yes As Needed [facility] Valsartan/Hydrochlorothiazide (Diovan Hct 320-25 Mg Ta blet) 1 Each Tablet Valsartan/Hydrochlorothiazide (Diovan Hct 320-25 Mg Tablet) 1 Each Tablet Yes Daily [facility] Vit A,C & E/Lutein/Minerals (Ocuvite Tablet) 1 Each Ta blet Vit A,C & E/Lutein/Minerals (Ocuvite Tablet) 1 Each Tablet Yes 1 Daily [facility] Furosemide 20 Mg Tablet, 20 Mg Oral Furosemide 20 Mg Tablet, 20 Mg Oral 2017-06-07 00:00:00 No 20 Daily [facility] Nitrofurantoin Monohyd/M-Cryst (Macrobid 100 Mg Capsule) 100 Mg Capsule, 100 Mg Oral Nitrofurantoin Monohyd/M-Cryst (Macrobid 100 Mg Capsule) 100 Mg Capsule, 100 Mg Oral 2017-06-07 00:00:00 No 100 Twice A Day [facility] Acetaminophen 500 Mg Tablet, 500 Mg Oral Acetaminophen 500 Mg Tablet, 500 Mg Oral 2015-11-08 00:00:00 No 500 As Needed [facility] Acetaminophen/Codeine Phosphate (Tylenol # 3*) 1 Ea Ta b, 1 Tab Oral Acetaminophen/Codeine Phosphate (Tylenol # 3*) 1 Ea Tab, 1 Tab Oral 2015-11-08 00:00:00 No 1 As Needed [facility] Aspirin (Aspir 81) 81 Mg Tablet., 81 Mg Oral Aspirin (Aspir 81) 81 Mg Tablet., 81 Mg Oral 2015-11-08 00:00:00 No 81 Da forest [facility] Meloxicam 7.5 Mg Tablet, 7.5 Mg Oral Meloxicam 7.5 Mg Tablet, 7. 5 Mg Oral 2015-11-08 00:00:00 No 7.5 Daily [facility] Diclofenac Sodium (Voltaren) 100 Gm Gel..gram., Diclof enac Sodium (Voltaren) 100 Gm Gel..gram., 2015-11-06 00:00:00 No [facility] Diclofenac Sodium (Voltaren) 100 Gm Gel..gram., Topi majo Diclofenac Sodium (Voltaren) 100 Gm Gel..gram., Topically 2015-11-05 00:00:00 No As Needed [facility] Cyclobenzaprine Hcl (Flexeril) 10 Mg Tablet, Mg Oral Cyclobenzaprine Hcl (Flexeril) 10 Mg Tablet, Mg Oral 2015-11-03 00:00:00 No Three Times A Day as needed [facility] Glyburide 2.5 Mg Tablet, 2.5 Mg Oral Glyburide 2.5 Mg Tablet, 2. 5 Mg Oral 2015-11-03 00:00:00 No 2.5 Twice A Day [facility] Hydrocodone Bit/Acetaminophen (Hydrocodo n-Acetaminophen 5-500) 1 Each Capsule, 1 Tab Oral Hydrocodone Bit/Acetaminophen (Hydrocodo n-Acetaminophen 5-500) 1 Each Capsule, 1 Tab Oral 2015-11-03 00:00:00 No 1 Every 6 Hours as needed [facility] Hydrocodone Bit/Acetaminophen (Hydrocodo n-Acetaminophen 5-500) 1 Each Capsule, Mg Oral Hydrocodone Bit/Acetaminophen (Hydrocodo n-Acetaminophen 5-500) 1 Each Capsule, Mg Oral 2015-11-03 00:00:00 No Every 4-6 Hours as needed [facility] Metoclopramide Hcl 5 Mg Tablet, 1 Mg Oral Metocloprami de Hcl 5 Mg Tablet, 1 Mg Oral 2015-11-03 00:00:00 No 1 Before Meals as ne eded [facility] Naproxen , 220 Mg Oral Naproxen , 220 Mg Oral 2015-11-03 00:00:0 0 No 220 Every 8 Hours as needed [facility] Rivaroxaban (Xarelto) 10 Mg Tablet, 1 Mg Oral Rivaroxa ban (Xarelto) 10 Mg Tablet, 1 Mg Oral 2015-11-03 00:00:00 No 1 Daily [facility] Valsartan/Hydrochlorothiazide (Diovan Hc t 320-12.5 Mg Tab) 1 Each Tablet, 1 Tab Oral Valsartan/Hydrochlorothiazide (Diovan Hc t 320-12.5 Mg Tab) 1 Each Tablet, 1 Tab Oral 2015-11-03 00:00:00 No 1 Daily [facility] Vision Formula , 1 Tab Oral Vision Formula , 1 Tab Oral 2015-11-03 00:00:00 No 1 Twice A Day [facility] Procedures Procedure Date / Time Performed Performing Clinician Sourc e INSERT PACE. DUAL KISHOR IN CHEST SUBCU/FASCIA, OPEN 2017-05-26 1 00:00:00 [facility] INSERTION OF PACEMAKER LEAD INTO R VENTRICLE, PERC APPROACH 2017-06-05 00:00:00 [facility] INSERTION OF PACEMAKER LEAD INTO RIGHT ATRIUM, PERC AP PROACH 2017-06-05 00:00:00 [facility] Computed tomography of brain without radiopaque contrast 201 12-25-07 00:00:00 STEVE BURGER [facility] Computed tomography of brain without radiopaque contrast 201 11-30-23 00:00:00 PIETRO PAZ [facility] CT maxillofacial area wo contrast 2016-12-16 00:00:00 ELIAS PAZ [facility] Computed tomography of cervical spine without contrast 12-16 00:00:00 PIETRO PAZ [facility] Encounters Start Date/Time End Date/Time Encounter Type Admission Type Att[facility] Care Department Encounter ID Source 2017-06-26 18:32:00 2017-06-26 21:14:00 Departed Emergency Room [facility] [id number] [facility] 2017-06-05 16:21:00 2017-06-07 13:17:00 Discharged Inpatient ER BLAKE MILLARD [facility] [id number] [facility] 2016-12-16 10:50:00 2016-12-16 12:33:00 Departed Emergency Room [facility] [id number] [facility] Results Test Description Test Time Test Comments Results Result Comments Source - PET/CT TUMOR SK MIDTH 2020-02-07 13:54:00 FAX: Letitia Gerard Nielsen [phone] Kemp: St: REG FAX: Carlos Douglass [phone] Name: SHERLY CASTELLANOS [facility] : 1930 Age/S: 89/F [address] [facility] Unit #: [id number] Loc: [place] [address] Phys: Carlos Rivers MD Acct: [id number] Dis Date: Status: REG CLI PHONE #: [phone] Exam Date: 02/07/2020 0945 FAX #: [phone] Reason: FOLLICULAR LYMPHOMA EXAMS: CPT CODE: [id number] PET/CT TUMOR [facility] MIDTH 00824 HISTORY: Follicular lymphoma. COMPARISON: None available. Location: [facility]. PET/CT SCAN: 11.3 mCi of FDG administered. Images obtained from the skull base to the upper thighs 1 hour postinjection. Blood glucose level = 81 mg/dL. HEAD AND NECK: Intense uptake within the brain parenchyma limited evaluation. Level 1 lymph node inferior and posterior to the left mandible measuring 1.3 cm with SUV uptake ranging up to 6.7 suspicious for lymphomatous involvement. No other abnormal uptake. Physiologic pharyngeal uptake. CHEST: Port-A-Cath on the right. Level 5 left retroclavicular lymph node measured 1.5 cm with SUV uptake ranging up to 5 suspicious for lymphomatous involvement. Extensive pathologic adenopathy within the hilum and the mediastinum without abnormal uptake. The largest node measured up to 2 cm. SUV uptake ranging up to 1.8 is not suspicious. No lung parenchymal uptake. No chest wall or breast uptake. ABDOMEN: No hepatic or adrenal uptake. Gallstones. Atrophied pancreas without abnormal uptake. No abnormal uptake within the kidneys or the spleen. The spleen is not enlarged. No pathologic mesenteric, retroperitoneal or retrocrural adenopa thy or uptake. Extensive excretion in the colon limits evaluation. PELVIS: Extensive excretion into the colon and small bowel limits evaluation. Excretion into the urinary bladder. Bilateral hip prosthesis with extensive artifact. No pelvic pathologic adenopathy or uptake. MUSCULOSKELETAL: No abnormal uptake. IMPRESSION: Level 1 lymph node on the left with SUV uptake ranging up to 6.7 measuring 1.3 cm suspicious for lymphomatous involvement. Level 5 lymph node in the retroclavicular location on the left measuring up to 1.5 cm with SUV uptake ranging up to 5 suspicious for lymphomatous involvement. No other abnormal uptake. PAGE 1 Signed Report (CONTINUED) FAX: Gerard Selby DO [phone] Kemp: St: REG FAX: Carlos Douglass [phone] Name: SHERLY CASTELLANOS [facility] : 1930 Age/S: 89/F [address] [facility] Unit #: [id number] Loc: [place] [address] Phys: Carlos Rivers MD Acct: [id number] Dis Date: Status: REG CLI PHONE #: [phone] Exam Date: 02/07/2020 0945 FAX #: [phone] Reason: FOLLICULAR LYMPHOMA EXAMS: CPT CODE: [id number] PET/CT TUMOR SK BS MIDTH 42784 <Continued> at 1354 Reported and signed by: Donato Loredo M.D. CC: Gerard Nielsen DO; Carlos Rivers MD Technologist: Lizzie Calvert RT(N) Trnscrd Date/Time/By: 02/07/2020 (5428) : By: [email or web address] Orig Print D/T: S: 02/07/2020 (5140) PAGE 2 Signed Report - XR CHEST 1 V 2020-01-12 15:59:00 FAX: Y Gerard Nielsen DO [phone] Kemp: St: REG -- Name: SHERLY CASTELLANOS [facility] : 1930 Age/S: 89/F [address] [facility] Unit #: [id number] Loc: [place] [address] Phys: Anant Whiting MD Acct: [id number] Dis Date: Status: REG [facility] PHONE #: [phone] Exam Date: 01/12/2020 1550 FAX #: [phone] Reason: line placement EXAMS: CPT CODE: [id number] XR CHEST 1 V 31817 REASON FOR EXAM: line placement EXAM ORDER DATE: 01/12/2020 3:27 PM Ordering: Anant Whiting MD Attending:Anant Whiting MD Location:[facility] PROCEDURE: - XR CHEST 1 V COMPARISON: FINDINGS: Portable AP frontal view of the chest obtained at 3:38 PM shows clear lungs without evidence of consolidation. There is no evidence of effusion. The heart size is minimally enlarged. A left subclavian pacemaker noted. Pulmonary vasculatures are unremarkable. IMPRESSION: Right subclavian Port-A-Cath tip is in the SVC. No evidence of pneumothorax at 3046 Reported and signed by: Brody Head M.D. CC: Gerard Nielsen DO Technologist: Nicholas Meredith RT(R Trnscrd Date/Time/By: 01/12/2020 (8625) : By: [email or web address] Orig Print D/T: S: 01/12/2020 (6383) PAGE 1 Signed Report GLUBED 2020-01-12 11:35:00 Test Item GLUBED (test code = GLUBED) 100 mg/dL 74-106 N Performed by certified pneumatic jack operator at [facility] COVID 19 Asymptomatic IH [id number] 12:50:00* Test Item Value Reference Range Interpretation Comments COVID 19 Asymptomatic IH AG (test code = COVNONPUIAG) NEGATIVE COMPREHENSIVE METABOLIC [id number] 11:30:00* Test Item Value Reference Range Interpretation Comments SODIUM (test code = NA) 138 mmol/L 136-145 N POTASSIUM (test code = K) 4.4 mmol/L 3.5-5.1 N CHLORIDE (test code = CL) 107.0 mmol/L 98-107 N CARBON DIOXIDE (test code = CO2) 22.0 mmol/L 21-32 N ANION GAP (test code = GAP) 13.4 10-20 N GLUCOSE (test code = GLU) 97 mg/dL 74-106 N BLOOD UREA NITROGEN (test code = BUN) 34 mg/dL 7-18 H GLOMERULAR FILTRATION RATE (test code = GFR) 23 mL/min >=60 Estimated GFR by using Modified MDRD formula.Chronic kidney disease is defined as either kidney damageor GFR <60 mL/min/1.73 m2 for >3 months. CREATININE (test code = CREAT) 2.00 mg/dL 0.55-1.02 H Note change in reference range due to change in reagent. BUN/CREATININE RATIO (test code = BUN/CREA) 16.6 10-20 N TOTAL PROTEIN (test code = PROT) 7.4 gram/dL 6.4-8.2 N ALBUMIN (test code = ALB) 3.8 g/dL 3.4-5.0 N GLOBULIN (test code = GLOB) 3.6 gram/dL 2.7-4.2 N ALBUMIN/GLOBULIN RATIO (test code = A/G) 1.1 0.75-1.50 N CALCIUM (test code = CA) 9.1 mg/dL 8.5-10.1 N BILIRUBIN TOTAL (test code = BILT) 0.30 mg/dL 0.0-1.0 N SGOT/AST (test code = AST) 16 IUnit/L 15-37 N SGPT/ALT (test code = ALT) 15 IUnit/L 12-78 N ALKALINE PHOSPHATASE TOTAL (test code = ALKP) 85 IUnit/L 45-117 N Note change in reference range due to change in reagent. COMPREHENSIVE METABOLIC [id number] 11:25:00* Test Item Value Reference Range Interpretation Comments SODIUM (test code = NA) 138 mmol/L 136-145 N POTASSIUM (test code = K) 4.4 mmol/L 3.5-5.1 N CHLORIDE (test code = CL) 107.0 mmol/L 98-107 N CARBON DIOXIDE (test code = CO2) mmol/L 21-32 ANION GAP (test code = GAP) 10-20 GLUCOSE (test code = GLU) mg/dL 74-106 BLOOD UREA NITROGEN (test code = BUN) mg/dL 7-18 GLOMERULAR FILTRATION RATE (test code = GFR) mL/min >=60 CREATININE (test code = CREAT) mg/dL 0.55-1.02 BUN/CREATININE RATIO (test code = BUN/CREA) 10-20 TOTAL PROTEIN (test code = PROT) gram/dL 6.4-8.2 ALBUMIN (test code = ALB) g/dL 3.4-5.0 GLOBULIN (test code = GLOB) gram/dL 2.7-4.2 ALBUMIN/GLOBULIN RATIO (test code = A/G) 0.75-1.50 CALCIUM (test code = CA) mg/dL 8.5-10.1 BILIRUBIN TOTAL (test code = BILT) mg/dL 0.0-1.0 SGOT/AST (test code = AST) IUnit/L 15-37 SGPT/ALT (test code = ALT) IUnit/L 12-78 ALKALINE PHOSPHATASE TOTAL (test code = ALKP) IUnit/L 45-117 CBC W/AUTO [id number] 11:14:00* Test Item Value Reference Range Interpretation Comments WHITE BLOOD CELL (test code = WBC) 8.1 K/mm3 4.5-12.5 N RED BLOOD CELL (test code = RBC) 3.09 mill/mm3 3.7-5.2 L HEMOGLOBIN (test code = HGB) 9.0 gram/dL 11.5-15.5 L HEMATOCRIT (test code = HCT) 27.3 % 36.0-46.0 L MEAN CELL VOLUME (test code = MCV) 88.3 fL 80-98 N MEAN CELL HGB (test code = MCH) 29.1 picogram 27.0-33.0 N MEAN CELL HGB CONCETRATION (test code = MCHC) 33.0 gram/dL 33.0-36. 0 N RED CELL DISTRIBUTION WIDTH (test code = RDW) 14.5 % 11.6-16. 2 N RED CELL DISTRIBUTION WIDTH SD (test code = RDW-SD) 46.5 fL 37 .0-51.0 N PLATELET COUNT (test code = PLT) 283 K/mm3 150-450 N MEAN PLATELET VOLUME (test code = MPV) 10.7 fL 6.7-11.0 N NEUTROPHIL % (test code = NT%) 60.9 % 39.0-69.0 N IMMATURE GRANULOCYTE % (test code = IG%) 0.4 % 0.0-5.0 N LYMPHOCYTE % (test code = LY%) 25.2 % 25.0-55.0 N MONOCYTE % (test code = MO%) 8.9 % 0.0-10.0 N EOSINOPHIL % (test code = EO%) 4.1 % 0.0-5.0 N BASOPHIL % (test code = BA%) 0.5 % 0.0-1.0 N NUCLEATED RBC % (test code = NRBC%) 0.0 % 0-0 N NEUTROPHIL # (test code = NT#) 4.92 K/mm3 1.8-7.7 N IMMATURE GRANULOCYTE # (test code = IG#) 0.03 x10 3/uL 0-0.03 N LYMPHOCYTE # (test code = LY#) 2.04 K/mm3 1.0-5.0 N MONOCYTE # (test code = MO#) 0.72 K/mm3 0-0.8 N EOSINOPHIL # (test code = EO#) 0.33 K/mm3 0.0-0.5 N BASOPHIL # (test code = BA#) 0.04 K/mm3 0.0-0.2 N NUCLEATED RBC # (test code = NRBC#) 0.00 K/mm3 0.0-0.1 N CBC W/AUTO [id number] 11:13:00* Test Item Value Reference Range Interpretation Comments WHITE BLOOD CELL (test code = WBC) K/mm3 4.5-12.5 RED BLOOD CELL (test code = RBC) mill/mm3 3.7-5.2 HEMOGLOBIN (test code = HGB) gram/dL 11.5-15.5 HEMATOCRIT (test code = HCT) % 36.0-46.0 MEAN CELL VOLUME (test code = MCV) fL 80-98 MEAN CELL HGB (test code = MCH) picogram 27.0-33.0 MEAN CELL HGB CONCETRATION (test code = MCHC) gram/dL 33.0-36. 0 RED CELL DISTRIBUTION WIDTH (test code = RDW) % 11.6-16. 2 RED CELL DISTRIBUTION WIDTH SD (test code = RDW-SD) fL 37 .0-51.0 PLATELET COUNT (test code = PLT) 283 K/mm3 150-450 N MEAN PLATELET VOLUME (test code = MPV) fL 6.7-11.0 NEUTROPHIL % (test code = NT%) % 39.0-69.0 IMMATURE GRANULOCYTE % (test code = IG%) % 0.0-5.0 LYMPHOCYTE % (test code = LY%) % 25.0-55.0 MONOCYTE % (test code = MO%) % 0.0-10.0 EOSINOPHIL % (test code = EO%) % 0.0-5.0 BASOPHIL % (test code = BA%) % 0.0-1.0 NEUTROPHIL # (test code = NT#) K/mm3 1.8-7.7 LYMPHOCYTE # (test code = LY#) K/mm3 1.0-5.0 MONOCYTE # (test code = MO#) K/mm3 0-0.8 EOSINOPHIL # (test code = EO#) K/mm3 0.0-0.5 BASOPHIL # (test code = BA#) K/mm3 0.0-0.2 SOFT [id number] 16:44:00 RUN DATE: 01/03/20 [facility] PAGE 1 RUN TIME: 1644 Specimen Inqui ry RUN USER: INTERFACE PATIENT: SHERLY CASTELLANOS ACCT #: [id number] LOC: [facility] U #: [id number] AGE/SX: 89/F ROOM: RE12/23/19REG DR: Anant Whiting MD : 30 BED: DIS: STATUS: [facility] TLOC: SPEC #: [id number] RECD: 12/23/19 STATUS: LINDSAY REQ #: [id number] DEMETRIUS: 12/23/19-0 [facility] DR: Anant Whiting MD ENTERED: 12/23/19-124 SP TYPE: SOFT MASS OTHR DR: Mark Lopez od, DO ORDERED: GROSS COPIES TO: Anant Whiting MD [address] [place] [address] Mark Nielsen DO [address] [place] [address] PROCEDURES: GROSS (01/03/20-08) TISSU ES: TISSUE FROM GROIN - RIGHT MASS CLINICAL HISTORY COLLECT ION DATE: 12/23/19 COMMENT ADX Comment: Flow cytomety performed on fresh tissue from the lymph node shows a clonal CD10 positive B cell popula tion (see separate report for details). Case reviewed intradepartmentally by Dr Ac Monahan, who agrees with the above diagnosis and interpretation. 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 Comment:The immunophenotype is nons pecific. Most clonal B-cells express surfacelambda,CD20, CD23, and CD23. A minut e subpopulation appears to express CD5 as well. Thedifferential diagnosis includ es but is not limited to follicular lymphoma, Burkitt lymphomaand diffuse large B cell lymphoma. Other considerations might be a transformed/atypicalCLL/SLL, or mantle cell lymphoma. Correlation with histomorphologic findings isrecommended. ResultsPopulations IdentifiedAbnormal B-cell population identified, of variable cell size, comprising 44.8% of eventsanalyzed, with the following antigenic pr ofile:POSITIVE FOR: CD5 [<10% of population], CD10, CD19, CD20, CD23, FMC-7, SURFACE LAMBDANEGATIVE FOR: CD5, (predom), CD38, CD103, SURFACE KAPPA Blasts: 0.0%Hematogones: 0%T-Cells: 62.3% CD4:CD8 ratio: 5.81:1NK-Cells: 0.2%Plasma cells: 0.0%Granulocytes: 2.2%Monocytes: 0.0%Viability: 97.8% The remaining events consist of debris and non-staining forms. Evaluated MarkersCD2, CD3, CD4, CD5, CD7, CD8, CD10, CD15, CD19, CD20, CD23, CD30, CD34, CD38, CD45, CD56,CD103, CD117, FMC-7, surface kappa, surface lambda, 7AAD (Total markers: 22) This test was developed and its performance characteristics determined by [facility]. It has not been cleared or approved by the U.S. Food and Drug Administration.The FDA has determined that such clearance is not necessary. This test is used for clinicalpurposes. It should not be regarded as investigational or for research. This laboratory iscertified under the Clinical Laboratory Improvement Amendments of 1988 (CLIA-88) asqualified to perform high complexity clinical testing. CONTINUED ON NEXT PAGE RUN DATE: 01/03/20 [facility] - [facility] PAGE 3 RUN TIME: 1644 Specimen Inquiry RUN USER: INTERFACE SPEC #: [id number] PATIENT: SHERLY CASTELLANOS #[id number] (Continued) FLOW CYTOMETRY (Continued) The above report was reviewed and interpretive comments are provided. The comments areapproved for the medical re cords of the identified patient with my electronic signature. Electronic Signatu Regina Monahan MDCPT Code(s): 71438,07643(x21),98372 ICD Code(s): R69 The Te chnical and Professional components were performed at [facility], [address] [place] [address], [address], [place] [address]. MACROSCOPIC The specimen is received fresh in a container labeled with the patient's name and identified as "right groin mass". It consists of roughly ovoid arias mass measu ring 4.5 x 4.1 x 2.7 cm. The tissue has smooth rounded margins except at one end where it has been cut across. The cut surface of the tissue is light arias with a vaguely nodular appearance. A portion of the fresh tissue is submitted for Flow cytometry studies. Additional tissue is submitted for histologic ev aluation (1A-1C). GROSS PERFORMED AT [facility] [address] [place] [address] (P) MICROSCOPIC All of the stains, including any controls pe rformed, stain appropriately. MICROSCOPIC PERFORMED AT [facility] [address] [place] [address] (P)[phone] OUTSIDE CONSULTATION ADX Pathology Consult Report Case#: [id number] RIGHT GROIN , LYMPH NODE, EXCISION: INVOLVEMENT BY FOLLICULAR L YMPHOMA, LOW GRADE (WHO GRADE 1-2), FOLLICULAR AND DIFFUSE PATTERN CONTINUED ON NEXT PAGE RUN DATE : 01/03/20 [place] [facility] PAGE 4 RUN TIME: 1644 Specimen Inquiry RUN USER: INTERFACE SPEC #: [id number] PATIENT: SHERLY CASTELLANOS #[id number] (Continued) OUTSIDE CONSULTATION (Continue d) Comment: Flow cytomety performed on fresh tissue from the lymph node austyn ws a clonal CD10 positive B cell population (see separate report for details). Case reviewed intradepartmentally by Dr. Graciela Monahan, who agrees with the abo ve diagnosis and interpretation. Materials Received Received from [facility] are 3 H E slides (1A, 1 B, .1C) labeled with patient name Nabila Castellanos and surgical accession number [id number] (1A, 1B, 1C), 3 paraffin bloc ks labeled as the following: [id number] (1A, 1B, 1C). Review Of Slides Sections show effacement of normal lymph node architecture by a nodular and d iffuse lymphoid proliferation. In the nodular areas, the lymphoid cells are c omprised of mostly moderate sized centrocytes, in addition to follicular dendr itic cells, centroblasts and T cells. .Centroblasts number approximately 12 pe r high power field. Immunostains to further characterize the neoplastic infil trate are performed with appropriate controls. The immunoprofile of the lympho id cells is as follows: CD20: Increased number of B cells positive Chester-5 : Corresponds to CD20 staining CD3:T cells immunoreactive CD5: Corresponds t o CD3 staining with no aberrant coexpression among CD20 positive B cells BCL -2: Positive in nodular areas BCL-6: Positive in nodular areas CD10: Positiv e in nodular areas CD21: Highlights broken down follicular dendritic networks CD23; Highlights broken down follicular dendritic networks Cyclin-D1: negati ve CD43: No aberrant co-expression among CD20 + B cells CD30: immunoblasts i mmunoreactive Ki-67: 30-40 % proliferation rate This test was [employer] and its performance characteristics determined by [employer]. It has not been cleared or approved by the U.S. Food and Drug Administration. The FDA has determined that such clearance is not necessary. This test is used for clinical purposes. It should not be regarded as investigational or for res earch. This laboratory is certified under the Clinical Laboratory Improvement Amendments of 1988 (CLIA-88) as qualified to perform high complexity clinical testing. Electronic Signature Mark Lozoya, Television Maintenance Man CONTINUED ON NEXT PAGE RUN DATE: 01/03/20 [facility] PAGE 5 RUN TIME: 4 Specimen Inquiry RUN USER: INTERFACE - SPEC #: [id number] PATIENT: SHERLY CASTELLANOS #[id number] (Continued) OUTSIDE CONSULTATION (Continued ) CPT Code(s): 09504,99742(x11),09774,21780 The Technical and Professio nal components were performed at [facility], [address] [place] [address] Seema nich[address], [address], [place] [address]. PERFORMING SITE Diagnosis performed at: [facility] [employer] [facility] [place] [address] [place] [address] - Signed SIGNATURE ON FILE Byron Puri MD 01/03/20 1644 END OF REPORT SOFT [id number] 16:44:00 RUN DATE: 01/10/20 [facility] PAGE 1 RUN TIME: 1421 Specimen Inqui ry RUN USER: INTERFACE PATIENT: SHERLY CASTELLANOS ACCT #: [id number] LOC: KATERINU U #: [id number] AGE/SX: 89/F ROOM: RE12/23/19[facility] DR: Anant Whiting MD : 30 BED: DIS: STATUS: [facility] TLOC: SPEC #: [id number] RECD: 12/23/19-124 STATUS: LINDSAY MEYER #: [id number] DEMETRIUS: 12/23/19-[address]: Anant Whiting MD ENTERED: 12/23/191245 SP TYPE: SOFT MASS OTHR DR: Mark Lopez od, DO ORDERED: GROSS COPIES TO: Anant Whiting MD [address] [place] [address] Mark Nielsen DO [address] [place] [address] PROCEDURES: GROSS (01/03/20) TISSU ES: TISSUE FROM GROIN - RIGHT MASS ADDENDUM FINDINGS Addendum #1 Entered: 01/10/20 A Fish report is [facility] [employer] [id number]/Case#: [id number] and the interpretation is as follows: Clinical Data R69: Illness, unspecified Interpretation HGBCL PANEL: POSITIVE: 1. Extra copies of BCL6 (No rearrangement) was detected. 2. Extra co pies of MYC (No rearrangement) was detected. 3. 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 The BCL2 rearrangement is found in 80 to 90% of follicular lymphomas and about 30% of diffuse large cell lymphomas (sometimes with prior follicular type). The prognosis correlates with the histological grade, with grade 1-2 cases being i ndolent and not usually curable except for infrequent localized cases. Large ce ll or grade 3 cases typically have a more aggressive clinical course. Copy gain of BCL6 and MYC gene regions is consistent with either trisomies 3 and 8 or a structural rearrangement of chromosomes 3 and 8 resulting in duplication of CONTINUED ON NEXT PAGE RUN DATE: [facility] PAGE 2 RUN TIME: 1421 Specimen Inquiry RU N USER: INTERFACE ---- --------SPEC #: [id number] PATIENT: SHERLY CASTELLANOS #[id number] (Continued) ADDENDUM FINDINGS (Continued) each gene region, respectively. These results should be interpreted within the context of other relevant testing on this individual. nuc teresa(WVX6a2-4)[],(MYCx3-5)[],(5'WZO1n2-7,3'EKK0p0-0)(5'BCL2 con 3'BCL2x1)[] A total of 200 interphase nuclei were scored for each High Grade B-cell Lymphoma ( HGBCL) probe set on a tumor tissue cells and revealed a positive result. .An i ntact copy gain of BCL6 (3q27.3) and MYC (8q24.21) were seen in approximately 4 0% of cells anlyzed. In addition, a rearrangement of BCL2 at 18q21 was seen in 62% of cells analyzed. Analyzed Probes: BCL6 (3q27.3) MYC (8q24.21) BCL2 (18q21) (All probes [employer]) Interphase FISH is performed to screen for e loci indicated above and does not detect other chromosomal abnormalities. Scoring Process: The scoring for this case was completed using a per cell nucle i approach to signal counting and was performed manually by a licensed technleticia tong. Disclaimer: This test was developed and its performance characteristic s determined by [employer]. It has not been cleared or approved by e U.S. Food and Drug Administration. The FDA has determined that such clearanc e is not necessary. This test is used for clinical purposes. It should not be r egarded as investigational or for research. This laboratory is certified under the Clinical Laboratory Improvement Amendments of 1988 (CLIA-88) as qualified t o perform high complexity clinical testing. Electronic Signature Mark santa, Television Maintenance Man CPT Code(s): 14379(x3) ICD Code(s): C82.85; R69 The Technical and Professional components were performed at [facility], [address] [facility] [facility], [address], [place] [address]. Addendum Signed SIGN ATURE ON FILE Byron Puri MD 01/10/20 1421 CONTINUED ON NEXT PAGE RUN SERGIO E: 01/10/20 [facility] PAGE 3 RUN TIME: 1421 Specimen Inquiry RUN USER: INTERFACE SPEC #: [id number] PATIENT: SHERLY CASTELLANOS # [id number] (Continued) CLINICAL HISTORY COLLECTION DA TE: 12/23/19 COMMENT ADX Comment: Flow cytomety performed on [facility] tissue from the lymph node shows a clonal CD10 positive B cell population ( see separate report for details). Case reviewed intradepartmentally by Dr. Graciela Denney, who agrees with the above diagnosis and interpretation. 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 Comment:The immunophenotype is nonspecific. Most clonal B-cells express surface lambda,CD20, CD23, and CD23. A minute subpopulation appears to express CD5 as we ll. Thedifferential diagnosis includes but is not limited to follicular lymphoma , Burkitt lymphomaand diffuse large B cell lymphoma. Other considerations might be a transformed/atypicalCLL/SLL, or mantle cell lymphoma. Correlation with his tomorphologic findings isrecommended. ResultsPopulations Identified CONTINUED ON NEXT PAGE RUN DATE: 01/10/20 [facility] PAGE 4 RUN TIME : 1421 Specimen Inquiry RUN USER: INTERFACE SPEC #: [id number] PATIENT: SHERLY CASTELLANOS #[id number] (Continued) FLOW CYTOMETRY (Continued) Abnormal B-cell population identified, of variable cell size, comprising 44.8% of eventsa nalyzed, with the following antigenic profile:POSITIVE FOR: CD5 [<10% of population], CD10, CD19, CD20, CD23, FMC-7, SURFACE LAMBDANEGATIVE FOR: CD5, (predom), CD38, CD103, SURFACE KAPPA Blasts: 0.0%Hematogones: 0%T-Cells: 62.3% CD4:CD8 ratio: 5.81:1NK-Cells: 0.2%Plasma cells: 0.0%Granulocytes: 2.2%Monocy kevin: 0.0%Viability: 97.8% The remaining events consist of debris and non-stainin g forms. Evaluated MarkersCD2, CD3, CD4, CD5, CD7, CD8, CD10, CD15, CD19, CD20, CD23, CD30, CD34, CD38, CD45, CD56,CD103, CD117, FMC-7, surface kappa, surface l ambda, 7AAD (Total markers: 22) This test was developed and its performance víctor acteristics determined by [employer]. It has not been cleared or approv ed by the U.S. Food and Drug Administration.The FDA has determined that such awa arance is not necessary. This test is used for clinicalpurposes. It should not b e regarded as investigational or for research. This laboratory iscertified under the Clinical Laboratory Improvement Amendments of 1988 (CLIA-88) asqualified to perform high complexity clinical testing. The above report was reviewed and int erpretive comments are provided. The comments areapproved for the medical record s of the identified patient with my electronic signature. Electronic SignatureNeha Monahan MDCPT Code(s): 63106,68295(x21),16139 ICD Code(s): R69 The Techni rani and Professional components were performed at [facility], [address] [facility], [address], [place] [address]. MACROSCOPIC The spec imen is received fresh in a container labeled with the patient's name and iden tified as "right groin mass". It consists of roughly ovoid arias mass measuring 4.5 x 4.1 x 2.7 cm. The tissue has smooth rounded margins except at one end where it has been cut across. The cut surface of the tissue is light arias with a vaguely nodular appearance. A portion of the fresh tissue is submitted for Flow cytometry studies. Additional tissue is submitted for histologic evalua tion (1A-1C). CONTINUED ON NEXT PAGE -- RUN DATE: 01/10/20 [facility] PAGE 5 RUN TIME: 1421 Specimen Inquiry RUN USER: INTERFACE SPEC #: [id number] PATIENT: SHERLY CASTELLANOS #[id number] (Continued) MACROSCOPIC (Continued) GROSS PERFORMED AT [facility] [address] [place] [address] (P) MICROSCOPIC All of the stains, including any controls pe rformed, stain appropriately. MICROSCOPIC PERFORMED AT [facility] [address] [facility] [address] (P)[phone] OUTSIDE CONSULTATION [facility] Pathology Consult Report Case#: [id number] RIGHT GROIN , LYMPH NODE, EXCISION: INVOLVEMENT BY FOLLICULAR L YMPHOMA, LOW GRADE (WHO GRADE 1-2), FOLLICULAR AND DIFFUSE PATTERN Comment: Flow cytomety performed on fresh tissue from the lymph node shows a clonal CD10 positive B cell population (see separate report for details). Case reviewed intradepartmentally by Dr. Graciela Monahan, who agrees with the above diagnosis and interpretation. Materials Received Received from [facility] are 3 H E slides (1A, 1 B, .1C) labeled with patient name Sherly garibay and surgical accession number [id number] (1A, 1B, 1C), 3 paraffin blocks l abeled as the following: [id number] (1A, 1B, 1C). Review Of Slides Sec tions show effacement of normal lymph node architecture by a nodular and diffu se lymphoid proliferation. In the nodular areas, the lymphoid cells are compr ised of mostly moderate sized centrocytes, in addition to follicular dendritic cells, centroblasts and T cells. .Centroblasts number approximately 12 per hi gh power field. Immunostains to further characterize the neoplastic infiltrat e are performed with appropriate controls. The immunoprofile of the lymphoid c ells is as follows: CD20: Increased number of B cells positive CONTINUED ON NEXT PAGE RUN DATE: 01/10/20 [facility] PAGE 6 RUN ARY E: 1421 Specimen Inquiry RUN USER: INTERFACE -SPEC #: [id number] PATIENT: SHERLY CASTELLANOS #[id number] (Continued) OUTSIDE CONSULTATION (Continued) Chester-5 : Corresponds to CD20 staining CD3:T cells immunoreactive CD5: Corresponds t o CD3 staining with no aberrant coexpression among CD20 positive B cells BCL -2: Positive in nodular areas BCL-6: Positive in nodular areas CD10: Positiv e in nodular areas CD21: Highlights broken down follicular dendritic networks CD23; Highlights broken down follicular dendritic networks Cyclin-D1: negati ve CD43: No aberrant co-expression among CD20 + B cells CD30: immunoblasts i mmunoreactive Ki-67: 30-40 % proliferation rate This test was [employer] and its performance characteristics determined by [employer]. It has not been cleared or approved by the U.S. Food and Drug Administration. The FDA has determined that such clearance is not necessary. This test is used for clinical purposes. It should not be regarded as investigational or for res earch. This laboratory is certified under the Clinical Laboratory Improvement Amendments of 1988 (CLIA-88) as qualified to perform high complexity clinical testing. Electronic Signature Mark Lozoya, Television Maintenance Man CPT Code(s): 40602,47628(x11),51155,14717 The Technical and Professional components were performed at [facility], [address] [facility], [address] [address]. PERFORMING SITE Diagnosis performed at: [facility] [address] [place] [address] ----- ------- Signed SIGNATURE ON FILE Byron Puri MD 12/24 1644 END OF REPORT * * SOFT [id number] 16:44:00 RUN DATE: 01/12/20 [facility] PAGE 1 RUN TIME: 1551 Specimen Inqui ry RUN USER: INTERFACE PATIENT: SHERLY CASTELLANOS ACCT #: [id number] LOC: ANCELMO U #: [id number] AGE/SX: 89/F ROOM: RE12/23/19REG DR: Anant Whiting MD : 30 BED: DIS: STATUS: [facility] TLOC: SPEC #: [id number] RECD: 12/23/19 STATUS: [facility] #: [id number] DEMETRIUS: 12/23/19-1230 [facility] DR: Anant Whiting MD ENTERED: 12/23/19 SP TYPE: SOFT MASS OTHR DR: Mark Lopez od, DO ORDERED: GROSS COPIES TO: Anant Whiting MD [address] [place] [address] Mark Nielsen DO [address] [place] [address] PROCEDURES: GROSS (01/03/20-08) TISSU ES: TISSUE FROM GROIN - RIGHT MASS ADDENDUM FINDINGS Addendum #2 Entered: 01/12/20-1554 A Fish report is received from [employer] ssion#: [id number] Case#:[id number] and the interpretation is as follows: FOLLICULAR LYMPHOMA t(14;18): ABNORMAL Comment: The IGH/BCL2 fusion is fo und in 80 to 90% of follicular lymphomas and about 30% of diffuse large cell ly mphomas (sometimes with prior follicular type). The prognosis correlates with t he histological grade, with grade 1-2 cases being indolent and not usually riaz ble except for infrequent localized cases. Large cell or grade 3 cases typicall y have a more aggressive clinical course. Cases with complex karyotypes are also associated with a poor prognosis. These results should be interpreted within t he context of other relevant testing on this individual. nuc teresa(IGH,BCL2)x 3-4(IGH con DGX0c2-9)[] A total of 200 interphase nuclei were scored fo r for t(14;18) probe set on a tumor tissue cells and revealed a positive result . A translocation between IGH and BCL6, at 14q32 and 18q21, was seen in 60% of cells analyzed. Analyzed Probes: CONTINUED ON NEXT PAGE RUN DATE: 01/12/20 [facility] PAGE 2 RUN TIME: 1551 Specimen Inquiry RUN USER: INTERFACE SPEC #: [id number] PATIE NT: SHERLY CASTELLANOS #[id number] (Continued) ADDENDUM FINDINGS (Continued) IGH (14q32.3) and BCL2 (18q21) dual fu alyssa probe ([place]) set to detect a t(14;18). The scoring for this case wa s completed using a per cell nuclei approach to signal counting and was perform ed manually by a licensed technologist. Interphase FISH is performed to screen for the loci indicated above and does not detect other chromosomal abnormalitie s. Scoring Process: The scoring for this case was completed using a per cell nuclei approach to signal counting and was performed manually by a licensed te chnologist. Disclaimer: This test was developed and its performance characte ristics determined by [employer]. It has not been cleared or approved by the U.S. Food and Drug Administration. The FDA has determined that such cl earance is not necessary. This test is used for clinical purposes. It should no t be regarded as investigational or for research. This laboratory is certified under the Clinical Laboratory Improvement Amendments of 1988 (CLIA-88) as quali fied to perform high complexity clinical testing. Electronic Signature Mark Lozoya, Television Maintenance Man CPT Code(s): 52048 ICD Code(s): C82.85; R69 The Technical and Professional components were performed at [facility] , [address] [facility] , [address], [place] [address]. Addendum Signed SIGNATURE ON FILE Byron Puri MD 01/12/20 1551 Addendum #1 Entered: 01/10/20-142 A Fish report is received giovanna fung ADX [id number] and the interpretation is as follows: Clinical Data R69: Illness, unspecified Interpretation HGB CL PANEL: POSITIVE: 1. Extra copies of BCL6 (No rearrangement) was detected. 2 . Extra copies of MYC (No rearrangement) was detected. 3. BCL2 (18q21) REARRANG EMENT was detected Comment: This does not represent a double or triple hit lymphoma. The BCL2 rearrangement is found in 80 to 90% of follicular lymphomas and about 30% of diffuse large cell lymphomas CONTINUED ON NEXT PAGE RUN DATE: 01/12/20 [facility] PAGE 3 RUN TIME: 1551 Specimen Inquiry RUN USER: INTERFACE SPEC #: [id number] PATIENT: SHERLY CASTELLANOS #[id number] (Continued) -- ADDENDUM FINDINGS (Continued) (sometimes with prior follicu lar type). The prognosis correlates with the histological grade, with grade 1-2 cases being indolent and not usually curable except for infrequent localized c ases. Large cell or grade 3 cases typically have a more aggressive clinical cou rse. Copy gain of BCL6 and MYC gene regions is consistent with either trisomies 3 and 8 or a structural rearrangement of chromosomes 3 and 8 resulting in dupli cation of each gene region, respectively. These results should be interpreted w ithin the context of other relevant testing on this individual. nuc teresa(BCL 6x3-5)[],(MYCx3-5)[20/50],(5'JFT3o0-3,3'RIZ4o4-2)(5'BCL2 con 3'BCL2x1)[31/ 50] A total of 200 interphase nuclei were scored for each High Grade B-cell Lymphoma (HGBCL) probe set on a tumor tissue cells and revealed a positive resu lt. .An intact copy gain of BCL6 (3q27.3) and MYC (8q24.21) were seen in appro ximately 40% of cells anlyzed. In addition, a rearrangement of BCL2 at 18q21 wa s seen in 62% of cells analyzed. Analyzed Probes: BCL6 (3q27.3) MYC (8q24. 21) BCL2 (18q21) (All probes [employer]) Interphase FISH is performed to scr een for the loci indicated above and does not detect other chromosomal abnormal ities. Scoring Process: The scoring for this case was completed using a per cell nuclei approach to signal counting and was performed manually by a license d technologist. Disclaimer: This test was developed and its performance víctor [facility] determined by [employer]. It has not been cleared or appr kyleigh by the U.S. Food and Drug Administration. The FDA has determined that suc h clearance is not necessary. This test is used for clinical purposes. It shoul d not be regarded as investigational or for research. This laboratory is certif ied under the Clinical Laboratory Improvement Amendments of 1988 (CLIA-88) as q ualified to perform high complexity clinical testing. Electronic Signature Mark Lozoya, Television Maintenance Man CPT Code(s): 76148(x3) ICD Code(s): C82.85 ; R69 The Technical and Professional components were performed at [facility], [address] [facility], [address], [place] [address]. CONTINUED ON NEXT PAGE RUN DATE: 12/24 02/12 [facility] PAGE 4 RU N TIME: 1551 Specimen Inquiry RUN USER: INTERFACE ------ ------SPEC #: [id number] PATIENT: SHERLY CASTELLANOS #[id number] (Continued) ADDENDUM FINDINGS (Continued) Ad dendum Signed SIGNATURE ON FILE Byron Puri MD 01/10/20 1421 CLINICAL HISTORY COLLECTION DATE: 12/23/19 C OMMENT ADX Comment: Flow cytomety performed on fresh tissue from the lymph node shows a clonal CD10 positive B cell population (see separate report for d padmini). Case reviewed intradepartmentally by Dr. Graciela Monahan, who agrees with the above diagnosis and interpretation. 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 Comment:The immunophenot ype is nonspecific. Most clonal B-cells express surfacelambda,CD20, CD23, and CD 23. A minute subpopulation appears to express CD5 as well. Thedifferential diagn osis includes but is not limited to follicular lymphoma, Burkitt lymphoma CONTINUED ON NEXT PAGE RUN DATE: 12/24 02/12 [facility] PAGE 5 RU N TIME: 6761 Specimen Inquiry RUN USER: INTERFACE ------ ------SPEC #: [id number] PATIENT: SHERLY CASTELLANOS #[id number] (Continued) FLOW CYTOMETRY (Continued) and diffuse large B cell lymphoma. Other considerations might be a transformed/atyp icalCLL/SLL, or mantle cell lymphoma. Correlation with histomorphologic finding s isrecommended. ResultsPopulations IdentifiedAbnormal B-cell population identif ied, of variable cell size, comprising 44.8% of eventsanalyzed, with the followi ng antigenic profile:POSITIVE FOR: CD5 [<10% of population], CD10, CD19, CD20, CD23, FMC-7, SURFACE LAMBDANEGATIVE FOR: CD5, (predom), CD38, CD103, SURFACE KAPPA Blasts: 0.0%Hematogones: 0%T-Cells: 62.3% CD4:CD8 ratio: 5.81:1NK-Cells: 0.2%Plasma cells: 0.0%Granulocytes: 2.2%Monocytes: 0.0%Viability: 97.8% The remaining events consist of debris and non-staining forms. Evaluated MarkersCD2, CD3, CD4, CD5, CD7, CD8, CD10, CD15, CD19, CD20, CD23, CD30, CD34, CD38, CD45, CD56,CD103, CD117, FMC-7, surface kappa, surface lambda, 7AAD (Total markers: 22) This test was developed and its performance characteristics determined by [employer]. It has not been cleared or approved by the U.S. Food and Drug Administration.The FDA has determined that such clearance is not necessary. This test is used for clinicalpurposes. It should not be regarded as investigational or for research. This laboratory iscertified under the Clinical Laboratory Improvement Amendments of 1988 (CLIA-88) asqualified to perform high complexity clinical testing. The above report was reviewed and interpretive comments are provided. The comments areapproved for the medical records of the identified patient with my electronic signature. Electronic SignatureMhair DINH MonhaanPT Code(s): 42026,33982(x21),13238 ICD Code(s): R69 The Technical and Professional components were performed at [facility], [address] [place] [address], [address], [place] [address]. CONTINUED ON NEXT PAGE RUN DATE: 01/12/20 [facility] PAGE 6 RUN TIME: 1551 Specimen Inquiry RUN USER: INTERFACE SPEC #: [id number] PATIENT: SHERLY CASTELLANOS #[id number] (Continued)----- ------- MACROSCOPIC The specimen is received fresh in a container labeled with the patient's name and identified as "right groin mass". It cons ists of roughly ovoid arias mass measuring 4.5 x 4.1 x 2.7 cm. The tissue has s mooth rounded margins except at one end where it has been cut across. The cut surface of the tissue is light arias with a vaguely nodular appearance. A port ion of the fresh tissue is submitted for Flow cytometry studies. Additional t issue is submitted for histologic evaluation (1A-1C). GROSS PERFORMED AT [facility] [address] [place] [address] (p)[phone] MICROSCOPIC All of the stains, including any controls performed, stain appropriately. 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 tissue from the lymph node shows a clonal CD10 positive B cell population (see separate report for details). Case reviewed intradepartmentally by Dr. Graciela Monahan, who agrees with the above diagnosis and interpretation. Mater ials Received Received from [facility] are 3 H E slides (1A, 1 B, .1C) labeled with patient name Sherly Castellanos and surgical accession number [id number] (1A, 1B, 1C), 3 paraffin blocks labeled as the following: [id number] (1A, 1B, 1C). Review Of Slides CONTINUED ON NEXT PAGE RUN DATE: 01/12/20 Federico padgett PAGE 7 RUN TIME: 1551 S william Inquiry RUN USER: INTERFACE SPEC #: [id number] PATIENT: SHERLY CASTELLANOS #[id number] (Continued) OUTS ALEXIA CONSULTATION (Continued) Sections show effacement of normal lymph node architecture by a nodular and diffuse lymphoid proliferation. In the nod ular areas, the lymphoid cells are comprised of mostly moderate sized centrocy kevin, in addition to follicular dendritic cells, centroblasts and T cells. .[place] troblasts number approximately 12 per high power field. Immunostains to furth er characterize the neoplastic infiltrate are performed with appropriate contr ols. The immunoprofile of the lymphoid cells is as follows: CD20: Increa sed number of B cells positive Chester-5: Corresponds to CD20 staining CD3:T thea ls immunoreactive CD5: Corresponds to CD3 staining with no aberrant coexpressi on among CD20 positive B cells BCL-2: Positive in nodular areas BCL-6: Pos itive in nodular areas CD10: Positive in nodular areas CD21: Highlights brok en down follicular dendritic networks CD23; Highlights broken down follicular dendritic networks Cyclin-D1: negative CD43: No aberrant co-expression among CD20 + B cells CD30: immunoblasts immunoreactive Ki-67: 30-40 % prolife ration rate This test was developed and its performance characteristics de termined by [employer]. It has not been cleared or approved by the U .S. Food and Drug Administration. The FDA has determined that such clearance i s not necessary. This test is used for clinical purposes. It should not be re garded as investigational or for research. This laboratory is certified under the Clinical Laboratory Improvement Amendments of 1988 (CLIA-88) as qualified to perform high complexity clinical testing. Electronic Signature Mark Lozoya, Television Maintenance Man CPT Code(s): 29871,70819(x11),13238,88199 The Technical and Professional components were performed at [facility], [address], [address], [place] [address]. PERFO RMING SITE Diagnosis performed at: [facility] [address] [place], [place] [address] CONTINUED ON NEXT PAGE RUN DATE: 01/12/20 [facility] PAGE 8 RUN TIME: 1551 Specimen Inquiry RUN USER: INTERFACE SPEC #: [id number] PATIENT: AVIVA CASTELLANOSHA #[id number] (Continued) --------- --- Signed SIGNATURE ON FILE Byron Puri MD 01/03/20 1644 END OF REPORT [id number] 10:44:00* Test Item Value Reference Range Interpretation Comments GLUBED (test code = GLUBED) 85 mg/dL 74-106 N Performed by certified pneumatic jack operator at [facility] COVID 19 Asymptomatic IH [id number] 15:15:00* Test Item Value Reference Range Interpretation Comments COVID 19 Asymptomatic IH AG (test code = COVNONPUIAG) NEGATIVE CBC W/AUTO [id number] 15:14:00* Test Item Value Reference Range Interpretation Comments WHITE BLOOD CELL (test code = WBC) 8.8 K/mm3 4.5-12.5 N RED BLOOD CELL (test code = RBC) 3.08 mill/mm3 3.7-5.2 L HEMOGLOBIN (test code = HGB) 8.8 gram/dL 11.5-15.5 L HEMATOCRIT (test code = HCT) 27.6 % 36.0-46.0 L MEAN CELL VOLUME (test code = MCV) 89.6 fL 80-98 N MEAN CELL HGB (test code = MCH) 28.6 picogram 27.0-33.0 N MEAN CELL HGB CONCETRATION (test code = MCHC) 31.9 gram/dL 33.0-36. 0 L RED CELL DISTRIBUTION WIDTH (test code = RDW) 14.5 % 11.6-16. 2 N RED CELL DISTRIBUTION WIDTH SD (test code = RDW-SD) 46.5 fL 37 .0-51.0 N PLATELET COUNT (test code = PLT) 275 K/mm3 150-450 N MEAN PLATELET VOLUME (test code = MPV) 11.0 fL 6.7-11.0 N NEUTROPHIL % (test code = NT%) 57.6 % 39.0-69.0 N IMMATURE GRANULOCYTE % (test code = IG%) 0.3 % 0.0-5.0 N LYMPHOCYTE % (test code = LY%) 26.5 % 25.0-55.0 N MONOCYTE % (test code = MO%) 7.4 % 0.0-10.0 N EOSINOPHIL % (test code = EO%) 7.7 % 0.0-5.0 H BASOPHIL % (test code = BA%) 0.5 % 0.0-1.0 N NUCLEATED RBC % (test code = NRBC%) 0.0 % 0-0 N NEUTROPHIL # (test code = NT#) 5.06 K/mm3 1.8-7.7 N IMMATURE GRANULOCYTE # (test code = IG#) 0.03 x10 3/uL 0-0.03 N LYMPHOCYTE # (test code = LY#) 2.33 K/mm3 1.0-5.0 N MONOCYTE # (test code = MO#) 0.65 K/mm3 0-0.8 N EOSINOPHIL # (test code = EO#) 0.68 K/mm3 0.0-0.5 H BASOPHIL # (test code = BA#) 0.04 K/mm3 0.0-0.2 N NUCLEATED RBC # (test code = NRBC#) 0.00 K/mm3 0.0-0.1 N BASIC METABOLIC [id number] 14:26:00* Test Item Value Reference Range Interpretation Comments SODIUM (test code = NA) 141 mmol/L 136-145 N POTASSIUM (test code = K) 4.3 mmol/L 3.5-5.1 N CHLORIDE (test code = CL) 109.0 mmol/L 98-107 H CARBON DIOXIDE (test code = CO2) 24.0 mmol/L 21-32 N ANION GAP (test code = GAP) 12.3 10-20 N GLUCOSE (test code = GLU) 79 mg/dL 74-106 N BLOOD UREA NITROGEN (test code = BUN) 41 mg/dL 7-18 H GLOMERULAR FILTRATION RATE (test code = GFR) 26 mL/min >=60 Estimated GFR by using Modified MDRD formula.Chronic kidney disease is defined as either kidney damageor GFR <60 mL/min/1.73 m2 for >3 months. CREATININE (test code = CREAT) 1.80 mg/dL 0.55-1.02 H Note change in reference range due to change in reagent. BUN/CREATININE RATIO (test code = BUN/CREA) 23.2 10-20 H CALCIUM (test code = CA) 9.7 mg/dL 8.5-10.1 N Sodium Ckamy0008-98-38 19:45:00* Test Item Value Reference Range Interpretation Comments Sodium Level (test code = 2951-2) 142 136-145 [facility] Fcysu4093-26-15 19:45:00* Test Item Value Reference Range Interpretation Comments Potassium Level (test code = 2823-3) 4.1 3.5-5.1 [facility] AreaChloride Ermjg4017-08-25 19:45:00* Test Item Value Reference Range Interpretation Comments Chloride Level (test code = 2075-0) 105 98-107 [facility] AreaCarbon Dioxide Fajyo3799-66-99 19:45:00* Test Item Value Reference Range Interpretation Comments Carbon Dioxide Level (test code = 2028-9) 23 22-29 [facility] AreaAnion Fwj7974-30-43 19:45:00* Test Item Value Reference Range Interpretation Comments Anion Gap (test code = 22681-7) 18.1 8-16 H [facility] AreaBlood Urea Jvfnpzxs9757-35-46 19:45:00* Test Item Value Reference Range Interpretation Comments Blood Urea Nitrogen (test code = 3094-0) 20 7-26 [facility] AreaCreatinine2018-02-01 19:45:00* Test Item Value Reference Range Interpretation Comments Creatinine (test code = 2160-0) 1.20 0.57-1.11 H [facility] AreaBUN/Creatinine Wicyl6713-63-77 19:45:00* Test Item Value Reference Range Interpretation Comments BUN/Creatinine Ratio (test code = 3097-3) 17 6-25 [facility] AreaEstimat Glomerular Filtration Rate 2017-06-26 19:45:00* Test Item Value Reference Range Interpretation Comments Estimat Glomerular Filtration Rate (test code = 13657-7) 43 >60 L Ranges were taken from the National Kidney Disease Education Program and the [facility] literature.Reference ranges:60 or greater: Xthldf53-37 ( for 3 consecutive months): Chronic kidney disease 15 or less: Kidney failureCorpus Christi Medical Center Bay AreaGlucose Thhcm4191-09-44 19:45:00* Test Item Value Reference Range Interpretation Comments Glucose Level (test code = SHL5197) 178 74-118 H [facility] AreaCalcium Cofse3062-42-17 19:45:00* Test Item Value Reference Range Interpretation Comments Calcium Level (test code = 11164-7) 10.2 8.4-10.2 [facility] AreaTotal Estvzvukt8831-52-16 19:45:00* Test Item Value Reference Range Interpretation Comments Total Bilirubin (test code = 1975-2) 0.6 0.2-1.2 [facility] AreaAspartate Amino Transf (AST/SGOT) 2017-06-26 19:45:00* Test Item Value Reference Range Interpretation Comments Aspartate Amino Transf (AST/SGOT) (test code = Aspartate Amino Transf (AST/SGOT)) 17 5-34 [facility] AreaAlanine Aminotransferase (ALT/SGPT) 2017-06-26 19:45:00* Test Item Value Reference Range Interpretation Comments Alanine Aminotransferase (ALT/SGPT) (test code = 1742-6) 11 0-55 [facility] AreaTotal Afyvplm2750-32-98 19:45:00* Test Item Value Reference Range Interpretation Comments Total Protein (test code = 2885-2) 7.9 6.5-8.1 [facility] AreaAlbumin2018-02-01 19:45:00* Test Item Value Reference Range Interpretation Comments Albumin (test code = 1751-7) 4.2 3.5-5.0 [facility] AreaGlobulin2018-02-01 19:45:00* Test Item Value Reference Range Interpretation Comments Globulin (test code = 92367-4) 3.7 2.3-3.5 H [facility] AreaAlbumin/Globulin Dmkxb4746-89-15 19:45:00 * Test Item Value Reference Range Interpretation Comments Albumin/Globulin Ratio (test code = 1759-0) 1.1 0.8-2.0 [facility] AreaAlkaline Amqpxiotubo1945-55-60 19:45:00* Test Item Value Reference Range Interpretation Comments Alkaline Phosphatase (test code = 6768-6) 82 40-150 [facility] AreaProthrombin Dqdt2902-72-75 19:34:00* Test Item Value Reference Range Interpretation Comments Prothrombin Time (test code = 5902-2) 13.4 11.9-14.5 [facility] AreaProthromb Time International Ratio 2017-06-26 19:34:00* Test Item Value Reference Range Interpretation Comments Prothromb Time International Ratio (test code = 6301-6) 0.97 Oral Anticoagulant Therapy INR Values:1. Low Intensity Therapy 1.5 - 2.02 . Moderate Intensity Therapy 2.0 - 3.03. High Intensity Therapy(1) 2.5 - 3. 54. High Intensity Therapy(2) 3.0 - 4.05. Panic Value INR > 5.0 [facility] AreaActivated Partial Thromboplast Time 2017-06-26 19:34:00* Test Item Value Reference Range Interpretation Comments Activated Partial Thromboplast Time (test code = 82052-2) 36.7 23.8-35.5 H [facility] AreaWhite Blood Hrotj7213-64-28 19:23:00* Test Item Value Reference Range Interpretation Comments White Blood Count (test code = 6690-2) 10.45 4.8-10.8 [facility] AreaRed Blood Kgwtj0209-17-02 19:23:00* Test Item Value Reference Range Interpretation Comments Red Blood Count (test code = 789-8) 3.34 3.6-5.1 L [facility] AreaHemoglobin2018-02-01 19:23:00* Test Item Value Reference Range Interpretation Comments Hemoglobin (test code = 35488-3) 9.8 12.0-16.0 L [facility] AreaHematocrit2018-02-01 19:23:00* Test Item Value Reference Range Interpretation Comments Hematocrit (test code = 4544-3) 30.6 34.2-44.1 L [facility] AreaMean Corpuscular Lbyegf1046-51-34 19:23:00* Test Item Value Reference Range Interpretation Comments Mean Corpuscular Volume (test code = 787-2) 91.6 81-99 [facility] AreaMean Corpuscular Nsqehkubpg7970-28-21 19:23:00* Test Item Value Reference Range Interpretation Comments Mean Corpuscular Hemoglobin (test code = 785-6) 29.3 28-32 [facility] AreaMean Corpuscular Hemoglobin Concent 2017-06-26 19:23:00* Test Item Value Reference Range Interpretation Comments Mean Corpuscular Hemoglobin Concent (test code = 786-4) 32.0 31-35 [facility] AreaRed Cell Distribution Jmukb5753-81-41 19:23:00* Test Item Value Reference Range Interpretation Comments Red Cell Distribution Width (test code = 94685-8) 13.8 11.7 -14.4 [facility] AreaPlatelet Bfvue9236-43-73 19:23:00* Test Item Value Reference Range Interpretation Comments Platelet Count (test code = 777-3) 400 140-360 H [facility] AreaNeutrophils (%) (Auto)2017-06-26 19:23:00 * Test Item Value Reference Range Interpretation Comments Neutrophils (%) (Auto) (test code = 02834-6) 56.5 38.7-80.0 [facility] AreaLymphocytes (%) (Auto)2017-06-26 19:23:00 * Test Item Value Reference Range Interpretation Comments Lymphocytes (%) (Auto) (test code = 736-9) 33.0 18.0-39.1 [facility] AreaMonocytes (%) (Auto)2017-06-26 19:23:00* Test Item Value Reference Range Interpretation Comments Monocytes (%) (Auto) (test code = 5905-5) 6.9 4.4-11.3 [facility] AreaEosinophils (%) (Auto)2017-06-26 19:23:00 * Test Item Value Reference Range Interpretation Comments Eosinophils (%) (Auto) (test code = 713-8) 2.6 0.0-6.0 [facility] AreaBasophils (%) (Auto)2017-06-26 19:23:00* Test Item Value Reference Range Interpretation Comments Basophils (%) (Auto) (test code = 706-2) 0.5 0.0-1.0 [facility] AreaIM GRANULOCYTES %2017-06-26 19:23:00* Test Item Value Reference Range Interpretation Comments IM GRANULOCYTES % (test code = IM GRANULOCYTES %) 0.5 0.0- 1.0 [facility] AreaNeutrophils # (Auto)2017-06-26 19:23:00* Test Item Value Reference Range Interpretation Comments Neutrophils # (Auto) (test code = 751-8) 5.9 2.1-6.9 [facility] AreaLymphocytes # (Auto)2017-06-26 19:23:00* Test Item Value Reference Range Interpretation Comments Lymphocytes # (Auto) (test code = 36769-6) 3.5 1.0-3.2 H [facility] AreaMonocytes # (Auto)2017-06-26 19:23:00* Test Item Value Reference Range Interpretation Comments Monocytes # (Auto) (test code = 742-7) 0.7 0.2-0.8 [facility] AreaEosinophils # (Auto)2017-06-26 19:23:00* Test Item Value Reference Range Interpretation Comments Eosinophils # (Auto) (test code = 711-2) 0.3 0.0-0.4 [facility] AreaBasophils # (Auto)2017-06-26 19:23:00* Test Item Value Reference Range Interpretation Comments Basophils # (Auto) (test code = 704-7) 0.1 0.0-0.1 [facility] AreaAbsolute Immature Granulocyte (auto 2017-06-26 19:23:00* Test Item Value Reference Range Interpretation Comments Absolute Immature Granulocyte (auto (kevin t code = Absolute Immature Granulocyte (auto) 0.05 0-0.1 [facility] AreaBedside Okmfbmz0347-57-84 11:46:00* Test Item Value Reference Range Interpretation Comments Bedside Glucose (test code = 33549-4) 179 70-120 H Meter ID: [id number] Christi Medical Center Bay AreaMagnesium Level 2017-06-05 09:03:00* Test Item Value Reference Range Interpretation Comments Magnesium Level (test code = 72054-2) 1.4 1.3-2.1 [facility] AreaUrine Hoqmtow4121-69-78 10:11:00* Test Item Value Reference Range Interpretation Comments Urine Culture (test code = 630-4) Organism: ESCHERICHIA COLI [facility] AreaPhosphorus Huqsw4314-38-59 09:23:00* Test Item Value Reference Range Interpretation Comments Phosphorus Level (test code = RRJ1543) 4.1 2.3-4.7 [facility] AreaTriglycerides Cgclz9676-18-11 06:18:00* Test Item Value Reference Range Interpretation Comments Triglycerides Level (test code = 2571-8) 130 0-149 [facility] AreaCholesterol Isxqj8602-65-06 06:18:00* Test Item Value Reference Range Interpretation Comments Cholesterol Level (test code = 2093-3) 145 0-199 Less than 200 mg/dL Low Rril434 - 239 mg/dL Borderline Xako994 m g/dl and greater High Risk [facility] Bay AreaLDL Ajnosbelhlb7004-04-38 06:18:00* Test Item Value Reference Range Interpretation Comments LDL Cholesterol (test code = 2089-1) 75 60-130 [facility] AreaHDL Ykyjmvmpqlw5295-70-34 06:18:00* Test Item Value Reference Range Interpretation Comments HDL Cholesterol (test code = 2085-9) 44 40-60 [facility] AreaCholesterol/HDL Wzbwv2750-70-96 06:18:00 * Test Item Value Reference Range Interpretation Comments Cholesterol/HDL Ratio (test code = 9830-1) 3.3 3.0-3.6 [facility] AreaCreatine Kinase UM3247-39-14 23:01:00* Test Item Value Reference Range Interpretation Comments Creatine Kinase MB (test code = 20777-7) 1.50 0.00-5.00 [facility] AreaTroponin Y6468-66-89 23:01:00* Test Item Value Reference Range Interpretation Comments Troponin I (test code = 56232-8) 0.020 0-0.300 [facility] AreaCreatine Ajygdw9200-27-15 22:56:00* Test Item Value Reference Range Interpretation Comments Creatine Kinase (test code = 2157-6) 60 29-168 [facility] AreaHemoglobin A1c Oziutpu4350-93-70 09:01:00 * Test Item Value Reference Range Interpretation Comments Hemoglobin A1c Percent (test code = Hemoglobin A1c Percent) 6.5 4.0-7.0 [facility] AreaUrine NGP8976-69-72 06:31:00* Test Item Value Reference Range Interpretation Comments Urine WBC (test code = 5821-4) 21-50 0-5 H [facility] AreaUrine WGC9356-09-21 06:31:00* Test Item Value Reference Range Interpretation Comments Urine RBC (test code = 28820-8) 6-10 0-5 H [facility] AreaUrine Obdidjro8476-79-56 06:31:00* Test Item Value Reference Range Interpretation Comments Urine Bacteria (test code = 84904-5) FEW NONE [facility] AreaUrine Epithelial Mshnv1949-55-02 06:31:00 * Test Item Value Reference Range Interpretation Comments Urine Epithelial Cells (test code = 41034-9) FEW NONE [facility] AreaUrine Transitional Epithelial Cells 2017-06-02 06:31:00* Test Item Value Reference Range Interpretation Comments Urine Transitional Epithelial Cells (test code = 8249-5) MODERATE NONE H [facility] AreaUrine Bzhvp2822-60-34 06:19:00* Test Item Value Reference Range Interpretation Comments Urine Color (test code = 5778-6) YELLOW YELLOW [facility] AreaUrine Rabqdsj9368-48-01 06:19:00* Test Item Value Reference Range Interpretation Comments Urine Clarity (test code = 37829-2) CLEAR CLEAR [facility] AreaUrine Specific Euqpqsm6658-02-89 06:19:00 * Test Item Value Reference Range Interpretation Comments Urine Specific [place] (test code = 5811-5) 1.010 1.010-1.02 5 [facility] AreaUrine gA2794-67-48 06:19:00* Test Item Value Reference Range Interpretation Comments Urine pH (test code = 67599-9) 7 5-7 [facility] AreaUrine Leukocyte Akaexxkr1942-45-49 06:19:00* Test Item Value Reference Range Interpretation Comments Urine Leukocyte Esterase (test code = 5799-2) 2+ NEGATIVE H [facility] AreaUrine Pjltuwi2729-70-54 06:19:00* Test Item Value Reference Range Interpretation Comments Urine Nitrite (test code = 74292-9) NEGATIVE NEGATIVE [facility] AreaUrine Notpmed6577-39-49 06:19:00* Test Item Value Reference Range Interpretation Comments Urine Protein (test code = 5804-0) NEGATIVE NEGATIVE [facility] AreaUrine Glucose (UA)2017-06-02 06:19:00* Test Item Value Reference Range Interpretation Comments Urine Glucose (UA) (test code = 2349-9) NEGATIVE NEGATIVE [facility] AreaUrine Zculoko9406-40-37 06:19:00* Test Item Value Reference Range Interpretation Comments Urine Ketones (test code = 60145-4) NEGATIVE NEGATIVE [facility] AreaUrine Vbbcawwivxkh0015-58-39 06:19:00* Test Item Value Reference Range Interpretation Comments Urine Urobilinogen (test code = 15836-5) 0.2 0.2-1 [facility] AreaUrine Kqbheroaz2207-00-76 06:19:00* Test Item Value Reference Range Interpretation Comments Urine Bilirubin (test code = 1978-6) NEGATIVE NEGATIVE [facility] AreaUrine Ahjdj5979-60-45 06:19:00* Test Item Value Reference Range Interpretation Comments Urine Blood (test code = 68465-6) NEGATIVE NEGATIVE [facility] AreaCHEST SINGLE (PORTABLE) [place] [address] Patient Name: SHERLY CASTELLANOS MR #: [id number] : 1930 Age/Sex: 86/F Req #: [id number] Adm Physician: BLAKE MILLARD MD Ordered by: BLAKE MILLARD MD Report #: [id number] Location: [facility] Room/Bed: [place] [address] Procedure: [id number] DX/CHES T SINGLE (PORTABLE) Exam Date: 06/05/17 Exam Time: 1 015 REPORT STATUS: Signed PROCEDURE: CHEST SINGLE (PORTABLE) TECHNI QUE: Portable AP chest INDICATION: Shortness of breath COMPARISON: [facility], DX, CHEST SINGLE (PORTABLE), 06/02/2017, 6:23. FIN DINGS: The lungs are clear and symmetrically inflated. No pleural effusions. Prominent cardiac silhouette with mild tortuosity of the thoracic aorta. Mi ld aortic arch calcification. Normal central vasculature. Intact skeleton. CONCLUSION: Mild cardiomegaly without evidence of pulmonary edema. Dictated by: Mark Madrigal M.D. on 06/05/2017 at 10:45 E lectronically approved by: Mark Madrigal M.D. on 06/05/2017 at 10:45 Dictated By: MARK MADRIGAL MD 104 Transcribed By: VERITO on 06/05/17 1045 COPY TO: BLAKE MILLARD MD CT BRAIN WO [place] [address] Patient Name: SHERLY CASTELLANOS MR #: [id number] : 1930 Age/Sex: 86/F Req #: [id number] Adm Physician: Ordered by: STEVE BURGER MD Report #: [id number] Location: ER Room/Bed: Procedure: [id number] CT/CT BRAIN WO Exam Sergio e: 06/02/17 Exam Time: 0610 REPORT STATUS: Sign ed Exam: Head CT without contrast History: Dizziness, altered mental statu s Comparison studies: Head CT 12/16/2016. Technique: Axial images were obtained from the skull base to the vertex. Coronal and sagittal images recons tructed from the axial data. Intravenous contrast: None Findings: Sc alp: No abnormalities. Bones: No fractures, blastic or lytic lesions. Bra in sulci: Appropriate for age. Ventricles: Normal in size and configuration. N o hydrocephalus. Extra-axial spaces: No masses, no fluid collection. Par enchyma: No mass, acute hemorrhage or acute cortical vascular insults. A few scattered subtle hypodensities in the supratentorial white matter are nonspeci fic but most compatible with chronic small vessel ischemic changes. Sella r/suprasellar region: No abnormalities. Craniocervical junction: Patent forame n magnum. No Chiari one malformation. Incidental findings: Atherosclerot ic calcifications in the carotid siphons. IMPRESSION: 1. No acute in tracranial abnormalities. 2. Mild chronic microvascular ischemic changes. 3 . No changes from the previous head CT of 12/16/2016. Signed by: Dr. Anant Valenzuela M.D. on 06/02/2017 6:45 AM Dictated By: ANANT VALENZUELA MD Electr onically Signed By: ANANT VALENZUELA MD on 06/02/1745 Transcribed By: NEO on 06/02/1745 COPY TO: STEVE BURGER MD CHEST SINGLE (PORTABLE) [place] [address] Patient Name: SHERLY CASTELLANOS MR #: [id number] : 1930 Age/Sex: 86/F Req #: [id number] Adm Physician: BLAKE MILLADR MD Ordered by: STEVE BURGER MD Report #: [id number] Location: [place] Room/Bed: [place] [address] Procedure: [id number] DX/CHEST SINGLE (PORTABLE) Exam Date: 06/02/17 Jaye fung Time: 0618 REPORT STATUS: Signed EXAMINATION: CHEST SINGLE (PORTABLE ) INDICATION: Weakness COMPARISON: None FIND INGS: TUBES and LINES: None. LUNGS: Lungs are well inflated. Lungs are clear. There is no evidence of pneumonia or pulmonary edema. PLEURA: No pleural effusion or pneumothorax. HEART AND MEDIASTINUM: Cardiac size i s mildly enlarged. There are atherosclerotic calcifications within the aorta. BONES AND SOFT TISSUES: No acute osseous lesion. Soft tissues are unrem arkable. UPPER ABDOMEN: No free air under the diaphragm. IMPRESSIO N: No acute thoracic abnormality. Signed by: Dr. Gus Abarca M.D. on 06/02/2017 6:56 AM Dictated By: GUS GRIFFITHS MD Electronically Si gned By: GUS GRIFFITHS MD on 06/02/17655 Transcribed By: NEO on 655 COPY TO: STEVE BURGER MD
[2020-02-21] MEDS ORDERED: ACETAMINOPHEN 325 MG TAB PO ONE (18:15)
[2020-02-21] MEDS ORDERED: CEFTRIAXONE SOD 1 GM/NS 50 ML 50 ML IV ONE (18:15)
[2020-02-21] MEDS ORDERED: SODIUM CHLORIDE 0.9% 1000ML 1,000 ML IV ONE (18:15)
--- NOTE | 2020-02-21 18:21 | NUR ---
PATIENT TO ROOM 11
--- NOTE | 2020-02-21 18:30 | Emergency Department Note ---
History of Present Illnes History of Present Illness Chief Complaint: Genitourinary History of Present Illness This is a 89 year old female * PATIENT IN FROM HOME; PER DAUGHTER, PATIENT HAS BEEN FEELING POORLY SINCE FRIDAY; PATIENT RECENTLY STARTED CHEMOTHERAPY FOR LYMPHOMA - LAST DOSE OF BENDAMUSTINE AND RITUXAN ON 02/10/2020. PATIENT HAS HAD DECREASED APPETITE, DIFFICULTY UNDERSTANDING DIRECTIONS. PATIENT WITH LOW GRADE FEVER IN TRIAGE, RESP EVEN AND NONLABORED . Historian: Patient, Family Member Arrival Mode: Car Diplomatic Interpreter Required: No Onset (how long ago): day(s) (3) Location: WEAK ALL OVER Quality: WEAKNESS, BODY ACHES Radiation: Reports non-radiation Severity: moderate Onset quality: gradual Duration (how long): day(s) (3) Timing of current episode: constant Progression: worsening Chronicity: new Context: Denies recent illness, Denies recent surgery, Denies trauma/injury Relieving factors: none Exacerbating factors: none Associated symptoms: Reports confusion, Reports cough, Reports malaise, Reports weakness Treatments prior to arrival: none Past Medical/Family History Physician Review I have reviewed the patient's past medical and family history. Any updates have been documented here. Past Medical History Recent Fever: Yes Clinical Suspicion of Infectio: Yes New/Unexplained Change in Ment: No Past Medical History: Hypertension, Diabetes, GERD, Hyperlipedemia Other Medical History: HIGH CHOLESTEROL GOUT GERD BILATERAL LEG SWELLING LYMPHOMA Past Surgical History: Hysterectomy, Pacer/AICD, Hip Replacement Other Surgery: BILATERAL HIP REPLACEMENT Social History Smoking Cessation: Never Smoker Alcohol Use: None Any Illegal Drug Use: No Family History Family history of heart diseas: No Other Last Tetanus: UNK Review of Systems Review of Systems Constitutional: Reports as per HPI EENTM: Reports no symptoms Cardiovascular: Reports no symptoms Respiratory: Reports no symptoms Gastrointestinal: Reports no symptoms Genitourinary: Reports no symptoms Musculoskeletal: Reports no symptoms Integumentary: Reports no symptoms Neurological: Reports as per HPI Psychological: Reports no symptoms Endocrine: Reports no symptoms Hematological/Lymphatic: Reports no symptoms Physical Exam Related Data Allergies: Coded Allergies: erythromycin base (Verified Allergy, Unknown, 02/21/20) Triage Vital Signs Vital Signs Date Time Temp Pulse Resp B/P (MAP) Pulse Ox O2 Delivery O2 Flow Rate FiO2 02/21/20 17:44 100.4 108 20 134/117 99 Room Air Vital signs reviewed: Yes Physical Exam CONSTITUTIONAL Constitutional: Present well-developed, Present well-nourished HENT HENT: Present normocephalic, Present atraumatic, Present oropharynx clear/moist, Present nose normal HENT L/R: Present left ext ear normal, Present right ext ear normal EYES Eyes: Reports PERRL, Reports conjunctivae normal NECK Neck: Present ROM normal PULMONARY Pulmonary: Present effort normal, Present breath sounds normal CARDIOVASCULAR Cardiovascular: Present regular rhythm, Present heart sounds normal, Present capillary refill normal, Present tachycardia (105) GASTROINTESTINAL Abdominal: Present soft, Present nontender, Present bowel sounds normal GENITOURINARY Genitourinary: Present exam deferred SKIN Skin: Present warm, Present dry MUSCULOSKELETAL Musculoskeletal: Present ROM normal NEUROLOGICAL Neurological: Present alert, Present oriented x 3, Present no gross motor or sensory deficits, Present weakness (GENERALIZED) PSYCHOLOGICAL Psychological: Present mood/affect normal, Present judgement normal Results Laboratory Laboratory Laboratory Tests Test 02/21/20 19:10 02/21/20 18:45 02/21/20 18:40 Urine Color Yellow (YELLOW) Urine Clarity Clear (CLEAR) Urine pH 5 (5 - 7) Urine Specific [place] 1.015 (1.010-1.025) Urine Protein Negative (NEGATIVE) Urine Glucose (UA) Negative (NEGATIVE) Urine Ketones Negative (NEGATIVE) Urine Blood Negative (NEGATIVE) Urine Nitrite Negative (NEGATIVE) Urine Bilirubin Negative (NEGATIVE) Urine Urobilinogen 0.2 mg/dL (0.2 - 1) Urine Leukocyte Esterase Negative (NEGATIVE) Urine RBC 0-5 /HPF (0-5) Urine WBC 0-5 /HPF (0-5) Urine Epithelial Cells Few /LPF (NONE) Urine Amorphous Sediment Few (FEW) Urine Bacteria Few /HPF (NONE) Urine Mucus Few (RARE) White Blood Count 22.77 x10e3/uL (4.8-10.8) Red Blood Count 2.53 x10e6/uL (3.6-5.1) Hemoglobin 7.3 g/dL (12.0-16.0) Hematocrit 21.4 % (34.2-44.1) Mean Corpuscular Volume 84.6 fL (81-99) Mean Corpuscular Hemoglobin 28.9 pg (28-32) Mean Corpuscular Hemoglobin Concent 34.1 g/dL (31-35) Red Cell Distribution Width 13.2 % (11.7-14.4) Platelet Count 267 x10e3/uL (140-360) Neutrophils (%) (Auto) 84.9 % (38.7-80.0) Lymphocytes (%) (Auto) 3.0 % (18.0-39.1) Monocytes (%) (Auto) 9.2 % (4.4-11.3) Eosinophils (%) (Auto) 1.6 % (0.0-6.0) Basophils (%) (Auto) 0.3 % (0.0-1.0) Neutrophils # (Auto) 19.3 (2.1-6.9) Lymphocytes # (Auto) 0.7 (1.0-3.2) Monocytes # (Auto) 2.1 (0.2-0.8) Eosinophils # (Auto) 0.4 (0.0-0.4) Basophils # (Auto) 0.1 (0.0-0.1) Absolute Immature Granulocyte (auto 0.23 x10e3/uL (0-0.1) Sodium Level 115 mmol/L (136-145) Potassium Level 4.0 mmol/L (3.5-5.1) Chloride Level 87 mmol/L (98-107) Carbon Dioxide Level 16 mmol/L (22-29) Anion Gap 16.0 mmol/L (8-16) Blood Urea Nitrogen 40 mg/dL (7-26) Creatinine 2.24 mg/dL (0.57-1.11) Estimat Glomerular Filtration Rate 21 ML/MIN (60-) BUN/Creatinine Ratio 18 (6-25) Glucose Level 76 mg/dL (74-118) Lactic Acid Level 1.8 mmol/L (0.5-2.0) Calcium Level 9.3 mg/dL (8.4-10.2) Total Bilirubin 0.7 mg/dL (0.2-1.2) Aspartate Amino Transf (AST/SGOT) 33 IU/L (5-34) Alanine Aminotransferase (ALT/SGPT) 19 IU/L (0-55) Alkaline Phosphatase 64 IU/L (40-150) Total Protein 6.5 g/dL (6.5-8.1) Albumin 4.0 g/dL (3.5-5.0) Globulin 2.5 g/dL (2.3-3.5) Albumin/Globulin Ratio 1.6 (0.8-2.0) Lab results reviewed: Yes Imaging Imaging results reviewed: Yes Impressions Procedure: [id number] DX/CHEST SINGLE (PORTABLE) Exam Date: 02/21/20 Exam Time: 1829 REPORT STATUS: Signed EXAMINATION: CHEST SINGLE (PORTABLE) COMPARISON: Chest x-ray 06/02/2017 INDICATION: ^FEVER ^[id number] ^1830 ^Y DISCUSSION: Frontal view of the chest obtained at 1838 hours. HEART AND MEDIASTINUM: Stable cardiomegaly. The ureter is tortuous LINES: Dual-lead pacemaker wires terminate in the right atrium and right ventricle. MediPort catheter terminates in the SVC LUNGS: Diffuse hyperinflation suggestive of small airways disease. Wispy bands of chronic atelectasis/scarring in the left lung base. No pneumonia or pulmonary edema. PLEURA: No pleural effusion or pneumothorax. BONES AND SOFT TISSUES: Stable degenerative changes of the shoulders. The bones are diffusely demineralized. The soft tissues are normal. IMPRESSION: 1. Cardiomegaly without vascular congestion. 2. Medical devices as described above. 3. No acute cardiopulmonary process. Signed by: Dr. Zane Jose MD on 02/21/2020 6:55 PM Dictated By: ZANE JOSE MD 54 Transcribed By: NEO on 02/21/201854 COPY TO: STEVE BURGER MD~ Procedures 12 Lead ECG Interpretation ECG Interpretation : ECG: ECG 1 Diplomatic Interpreter: Interpreted by ED physician Date: Feb 21, 2020 Time: 18:50 Rhythm: paced (ELECTRONIC VENTRICULAR PACED ) Rate: tachycardia BPM: 101 ST segments normal: No T waves normal: No Additional Comments ELECTRONIC VENTRICULAR PACED RHYTHM. Assessment & Plan Medical Decision Making MDM PT WHO FINISHED FIRST ROUND OF CHEMO FOR LYMPHOMA ON 02/10/20 PRESENTS WITH 3 DAY H/O WEAKNESS, BODY ACHES NOT FEELING WELL, REPORTS MILD OCCASIONAL COUGH CBC. CMP, CXR, COVID 19, UA, URINE CULTURE, BLOOD CULTURE, LACTIC ACID, ORDERED TO EVAL FOR LEUKOCYTOSIS, UTI, PNEUMONIA, COVID 19, SEPSIS, ELECTROLYTE ABNORMALITY TYLENOL 650 MG PO ORDERED NS 1 LITER IV BOLUS ORDERED ROCEPHIN 1 GRAM IV ORDERED I SPOKE WITH DR MILLARD, ADMIT TO ICU Assessment & Plan Final Impression: (1) Lymphoma (2) Fever (3) Leukocytosis (4) Hyponatremia Depart Disposition: ADMITTED Last Vital Signs Date Time Temp Pulse Resp B/P (MAP) Pulse Ox O2 Delivery O2 Flow Rate FiO2 02/21/20 18:21 54 18 110/61 99 Room Air 02/21/20 17:44 100.4 Home Meds Active Scripts Tramadol Hcl* (ULTRAM 50MG*) 50 Mg Tab, 50 MG PO Q8H PRN for PAIN, #10 TAB Prov:MYA MILLARD MD 06/07/17 [Aspirin] 325 MG TAB No Conflict Check, 325 MG PO BID for 21 Days Prov:DIONICIO ALVAREZ 11/08/15 Reported Medications Triamcinolone (TRIAMCINOLONE ACETONIDE) 15 Gm Oint, TOP PRN 11/03/15 Ferrous Sulfate (IRON) 325 Mg Capsule.er, 325 MG PO DAILY 11/03/15 Cyanocobalamin (Vitamin B-12) (VITAMIN B-12) 1,000 Mcg Tablet.er, 1000 MCG PO DAILY 11/03/15 Vit A,C & E/Lutein/Minerals (OCUVITE TABLET) 1 Each Tablet, 1 EACH PO DAILY, TAB 11/03/15 Allopurinol (ALLOPURINOL) 100 Mg Tablet, 100 MG PO DAILY, TAB 11/03/15 Glipizide (GLIPIZIDE XL) 2.5 Mg Tabcr, 2.5 MG PO BID 11/03/15 Valsartan/Hydrochlorothiazide (DIOVAN HCT 320-25 MG TABLET) 1 Each Tablet, PO DAILY 11/03/15 Ciclopirox Olamine (CICLOPIROX) 15 Gm Cream..g., 1 PACKET TOP BIDPRN 12/10/12 Multivitamin (MULTIVITAMINS) 1 Each Tablet, 1 TAB PO DAILY 12/10/12 Gluc 2KCL/Chondr/Demetrius Hy/Hy Ac (GLUCOSAMINE & CHONDROITIN CAP) 1 Each Capsule, 1 TAB PO BID 12/10/12 Amlodipine Besylate (AMLODIPINE BESYLATE) 2.5 Mg Tablet, 2.5 MG PO DAILY 12/10/12 Pravastatin Sodium (PRAVASTATIN SODIUM) 40 Mg Tablet, 40 MG PO DAILY 12/10/12 Omeprazole (OMEPRAZOLE) 20 Mg Tablet.dr, 20 MG PO DAILY 12/10/12 Metformin Hcl (METFORMIN HCL) 500 Mg Tablet, 500 MG PO TID 12/10/12 Medications in the ED Sodium Chloride 1,000 ml @ 999 mls/hr Q1H1M ONCE IV ; Start 02/21/20 at 18:15; Stop 02/21/20 at 19:15 Ceftriaxone Sodium 50 ml @ 100 mls/hr ONCE ONCE IV ; Start 02/21/20 at 18:15; Stop 02/21/20 at 18:44 Acetaminophen 650 mg ONCE ONCE PO ; Start 02/21/20 at 18:15; Stop 02/21/20 at 18:21; Status DC STEVE BURGER MD Feb 21, 2020 18:30
--- NOTE | 2020-02-21 18:58 | Diagnostic Imaging Report ---
EXAMINATION: CHEST SINGLE (PORTABLE) COMPARISON: Chest x-ray 06/02/2017 INDICATION: ^FEVER ^[id number] ^1830 ^Y DISCUSSION: Frontal view of the chest obtained at 1838 hours. HEART AND MEDIASTINUM: Stable cardiomegaly. The ureter is tortuous LINES: Dual-lead pacemaker wires terminate in the right atrium and right ventricle. MediPort catheter terminates in the SVC LUNGS: Diffuse hyperinflation suggestive of small airways disease. Wispy bands of chronic atelectasis/scarring in the left lung base. No pneumonia or pulmonary edema. PLEURA: No pleural effusion or pneumothorax. BONES AND SOFT TISSUES: Stable degenerative changes of the shoulders. The bones are diffusely demineralized. The soft tissues are normal. IMPRESSION: 1. Cardiomegaly without vascular congestion. 2. Medical devices as described above. 3. No acute cardiopulmonary process. Signed by: Dr. Roque Jose MD on 02/21/2020 6:55 PM
[2020-02-21 19:13] LABS: BASOPHILS # (AUTO) 0.1 (0.0-0.1); BASOPHILS % 0.3 % (0.0-1.0); EOSINOPHILS # (AUTO) 0.4 (0.0-0.4); EOSINOPHILS % 1.6 % (0.0-6.0); HEMATOCRIT 21.4 % (34.2-44.1); HEMOGLOBIN 7.3 g/dL (12.0-16.0); LYMPHOCYTES # (AUTO) 0.7 (1.0-3.2); MEAN CORPUSCULAR HEMOGLOBIN 28.9 pg (28-32); MEAN CORPUSCULAR HGB CONC 34.1 g/dL (31-35); MEAN CORPUSCULAR VOLUME 84.6 fL (81-99); MONOCYTES # (AUTO) 2.1 (0.2-0.8); MONOCYTES % 9.2 % (4.4-11.3); NEUTROPHILS # (AUTO) 19.3 (2.1-6.9); NEUTROPHILS % 84.9 % (38.7-80.0); PLATELET COUNT 267 x10e3/uL (140-360); RED BLOOD COUNT 2.53 x10e6/uL (3.6-5.1); RED CELL DISTRIBUTION WIDTH 13.2 % (11.7-14.4)
[2020-02-21 19:28] LABS: CLARITY,URINE CLEAR (CLEAR); COLOR,URINE YELLOW (YELLOW); KETONES,URINE NEGATIVE (NEGATIVE); LEUKOCYTE ESTERASE ,URINE NEGATIVE (NEGATIVE); NITRITE,URINE NEGATIVE (NEGATIVE); PROTEIN,URINE DIPSTICK NEGATIVE (NEGATIVE)
[2020-02-21 19:29] LABS: BILIRUBIN,URINE NEGATIVE (NEGATIVE); URINE UROBILINOGEN 0.2 mg/dL (0.2 - 1)
[2020-02-21 19:31] LABS: ALBUMIN/GLOBULIN RATIO 1.6 (0.8-2.0); CALCIUM 9.3 mg/dL (8.4-10.2); CREATININE, SERUM 2.24 mg/dL (0.57-1.11)
[2020-02-21 19:38] LABS: BACTERIA,URINE FEW /HPF; EPITHELIAL CELLS,URINE FEW /LPF; RBC,URINE 0-5 /HPF (0-5); WBC,URINE (MAN) 0-5 /HPF (0-5)
[2020-02-21 19:39] LABS: AMORPHOUS SEDIMENT,URINE FEW (FEW); MUCUS,URINE FEW (RARE)
[2020-02-21] MEDS ORDERED: VANCOMYCIN 1GM/NS 250 ML 250 ML IV ONE (21:15)
[2020-02-21] MEDS ORDERED: SODIUM CHLORIDE 0.9% 1000ML 1,000 ML IV SCH (21:15)
[2020-02-21] MEDS ORDERED: ONDANSETRON HCL INJ 2MG/ML 2ML 2 MG/ML VIAL IV PRN (21:15)
--- OUTSIDE RECORDS SUMMARY | 2020-02-21 21:24 | XMS REPORT | Continuity of Care Document ---
Author Author [facility] t Organization [facility] Address [address] [place] [address] Phone Unavailable Care Team Providers Care Cotton Sampler Name Role Phone CASIE NIELSEN DO PCP Michael BURGER Attphys Unavailable BLAKE MILLARD Attphys Unavailable BLAKE MILLARD Admphys Unavailable Payers Payer Name Policy Type Policy Number Effective Date Expiration Date Kan Serrano [facility] [id number] 2015 00:00:00 [facility] Problems Condition Name Condition Details Condition Category Status Onset Date Resolution Date Last Treatment Date Treating Clinician Comments Source Bursitis Bursitis Problem Active [facility] Chest pain Chest pain Problem Active [facility] Dizziness Dizziness Problem Active [facility] Tendinitis Tendonitis Problem Active [facility] Urinary tract infection UTI (urinary tract infection) Problem Active [facility] Allergies, Adverse Reactions, Alerts Allergy Name Allergy Type Status Severity Reaction(s) Onset Date Inacti ve Date Treating Clinician Comments Source lactose FA Active SV 2019-12-20 00:00:00 [facility] Erythromycin base Allergy to Substance Active 2017-06-02 00 :00:00 [facility] Medications Ordered Medication Name Filled Medication Name Start Date Stop Da te Current Medication? Ordering Clinician Indication Dosage Frequency Signature (SIG) Comments Components Source Tramadol Hcl (Ultram 50MG*) 50 Mg Tab Tramadol Hcl (Ultram 5 0MG*) 50 Mg Tab 2017-06-07 00:00:00 Yes Blake Millard Md 50 Every 8 Hours as needed for Pain [facility] Aspirin 325 Mg Tab Aspirin 325 Mg Tab 2015-11-08 00:00:00 00:00:00 No Asad Esparza Pa 325 Twice A Day [facility] Allopurinol 100 Mg Tablet Allopurinol 100 Mg Tablet Yes 100 Daily [facility] Amlodipine Besylate 2.5 Mg Tablet Amlodipine Besylate 2.5 Mg Tablet Yes 2.5 Daily [facility] Ciclopirox Olamine (Ciclopirox) 15 Gm Cream..g. Ciclop irox Olamine (Ciclopirox) 15 Gm Cream..g. Yes 1 Bidprn [facility] Cyanocobalamin (Vitamin B-12) (Vitamin B-12) 1,000 Mcg Tablet.er Cyanocobalamin (Vitamin B-12) (Vitamin B-12) 1,000 Mcg Tablet.er Yes 1000 Daily [facility] Ferrous Sulfate (Iron) 325 Mg Capsule.er Ferrous Sulfa te (Iron) 325 Mg Capsule.er Yes 325 Daily [facility] Glipizide (Glipizide Xl) 2.5 Mg Tabcr Glipizide (Glipizide Xl) 2.5 Mg Tabcr Yes 2.5 Twice A Day [facility] Gluc 2KCL/Chondr/Demetrius Hy/Hy Ac (Glucosamine & Chondroi tin Cap) 1 Each Capsule Gluc 2KCL/Chondr/Demetrius Hy/Hy Ac (Glucosamine & Chondroitin Cap) 1 Each Capsule Yes 1 Twice A Day [facility] Metformin Hcl 500 Mg Tablet Metformin Hcl 500 Mg Tablet Yes 500 Three Times A Day [facility] Multivitamin (Multivitamins) 1 Each Tablet Multivitami n (Multivitamins) 1 Each Tablet Yes 1 Daily [facility] Omeprazole 20 Mg Tablet. Omeprazole 20 Mg Tablet. Yes 20 Daily [facility] Pravastatin Sodium 40 Mg Tablet Pravastatin Sodium 40 Mg Tablet Yes 40 Daily [facility] Triamcinolone (Triamcinolone Acetonide) 15 Gm Oint Tri amcinolone (Triamcinolone Acetonide) 15 Gm Oint Yes As Needed [facility] Valsartan/Hydrochlorothiazide (Diovan Hct 320-25 Mg Ta blet) 1 Each Tablet Valsartan/Hydrochlorothiazide (Diovan Hct 320-25 Mg Tablet) 1 Each Tablet Yes Daily [facility] Vit A,C & E/Lutein/Minerals (Ocuvite Tablet) 1 Each Ta blet Vit A,C & E/Lutein/Minerals (Ocuvite Tablet) 1 Each Tablet Yes 1 Daily [facility] Furosemide 20 Mg Tablet, 20 Mg Oral Furosemide 20 Mg Tablet, 20 Mg Oral 2017-06-07 00:00:00 No 20 Daily [facility] Nitrofurantoin Monohyd/M-Cryst (Macrobid 100 Mg Capsule) 100 Mg Capsule, 100 Mg Oral Nitrofurantoin Monohyd/M-Cryst (Macrobid 100 Mg Capsule) 100 Mg Capsule, 100 Mg Oral 2017-06-07 00:00:00 No 100 Twice A Day [facility] Acetaminophen 500 Mg Tablet, 500 Mg Oral Acetaminophen 500 Mg Tablet, 500 Mg Oral 2015-11-08 00:00:00 No 500 As Needed [facility] Acetaminophen/Codeine Phosphate (Tylenol # 3*) 1 Ea Ta b, 1 Tab Oral Acetaminophen/Codeine Phosphate (Tylenol # 3*) 1 Ea Tab, 1 Tab Oral 2015-11-08 00:00:00 No 1 As Needed [facility] Aspirin (Aspir 81) 81 Mg Tablet., 81 Mg Oral Aspirin (Aspir 81) 81 Mg Tablet., 81 Mg Oral 2015-11-08 00:00:00 No 81 Da forest [facility] Meloxicam 7.5 Mg Tablet, 7.5 Mg Oral Meloxicam 7.5 Mg Tablet, 7. 5 Mg Oral 2015-11-08 00:00:00 No 7.5 Daily [facility] Diclofenac Sodium (Voltaren) 100 Gm Gel..gram., Diclof enac Sodium (Voltaren) 100 Gm Gel..gram., 2015-11-06 00:00:00 No [facility] Diclofenac Sodium (Voltaren) 100 Gm Gel..gram., Topi majo Diclofenac Sodium (Voltaren) 100 Gm Gel..gram., Topically 2015-11-05 00:00:00 No As Needed [facility] Cyclobenzaprine Hcl (Flexeril) 10 Mg Tablet, Mg Oral Cyclobenzaprine Hcl (Flexeril) 10 Mg Tablet, Mg Oral 2015-11-03 00:00:00 No Three Times A Day as needed [facility] Glyburide 2.5 Mg Tablet, 2.5 Mg Oral Glyburide 2.5 Mg Tablet, 2. 5 Mg Oral 2015-11-03 00:00:00 No 2.5 Twice A Day [facility] Hydrocodone Bit/Acetaminophen (Hydrocodo n-Acetaminophen 5-500) 1 Each Capsule, 1 Tab Oral Hydrocodone Bit/Acetaminophen (Hydrocodo n-Acetaminophen 5-500) 1 Each Capsule, 1 Tab Oral 2015-11-03 00:00:00 No 1 Every 6 Hours as needed [facility] Hydrocodone Bit/Acetaminophen (Hydrocodo n-Acetaminophen 5-500) 1 Each Capsule, Mg Oral Hydrocodone Bit/Acetaminophen (Hydrocodo n-Acetaminophen 5-500) 1 Each Capsule, Mg Oral 2015-11-03 00:00:00 No Every 4-6 Hours as needed [facility] Metoclopramide Hcl 5 Mg Tablet, 1 Mg Oral Metocloprami de Hcl 5 Mg Tablet, 1 Mg Oral 2015-11-03 00:00:00 No 1 Before Meals as ne eded [facility] Naproxen , 220 Mg Oral Naproxen , 220 Mg Oral 2015-11-03 00:00:0 0 No 220 Every 8 Hours as needed [facility] Rivaroxaban (Xarelto) 10 Mg Tablet, 1 Mg Oral Rivaroxa ban (Xarelto) 10 Mg Tablet, 1 Mg Oral 2015-11-03 00:00:00 No 1 Daily [facility] Valsartan/Hydrochlorothiazide (Diovan Hc t 320-12.5 Mg Tab) 1 Each Tablet, 1 Tab Oral Valsartan/Hydrochlorothiazide (Diovan Hc t 320-12.5 Mg Tab) 1 Each Tablet, 1 Tab Oral 2015-11-03 00:00:00 No 1 Daily [facility] Vision Formula , 1 Tab Oral Vision Formula , 1 Tab Oral 2015-11-03 00:00:00 No 1 Twice A Day [facility] Procedures Procedure Date / Time Performed Performing Clinician Sourc e INSERT PACE. DUAL KISHOR IN CHEST SUBCU/FASCIA, OPEN 2017-05-26 1 00:00:00 [facility] INSERTION OF PACEMAKER LEAD INTO R VENTRICLE, PERC APPROACH 2017-06-05 00:00:00 [facility] INSERTION OF PACEMAKER LEAD INTO RIGHT ATRIUM, PERC AP PROACH 2017-06-05 00:00:00 [facility] Computed tomography of brain without radiopaque contrast 201 12-25-07 00:00:00 STEVE BURGER [facility] Computed tomography of brain without radiopaque contrast 201 11-30-23 00:00:00 PIETRO PAZ [facility] CT maxillofacial area wo contrast 2016-12-16 00:00:00 ELIAS PAZ [facility] Computed tomography of cervical spine without contrast 12-16 00:00:00 PIETRO PAZ [facility] Encounters Start Date/Time End Date/Time Encounter Type Admission Type [facility] Care Department Encounter ID Source 2017-06-26 18:32:00 2017-06-26 21:14:00 Departed Emergency Room [facility] [id number] [facility] 2017-06-05 16:21:00 2017-06-07 13:17:00 Discharged Inpatient ER BLAKE MILLARD [facility] [id number] [facility] 2016-12-16 10:50:00 2016-12-16 12:33:00 Departed Emergency Room [facility] [id number] [facility] Results Test Description Test Time Test Comments Results Result Comments Source CHEST SINGLE (PORTABLE) 2020-02-21 18:54:00 [facility] [address] [place], [place] [address] Patient Name: SHERLY CASTELLANOS MR #: [id number] : 1930 Age/Sex: 89/F Req #: [id number] Adm Physician: Ordered by: STEVE BURGER MD Report #: [id number] Location: ER Room/Bed: Procedure: [id number] DX/CHEST SINGLE (PORTABLE) Exam Date: 02/21/20 Exam Time: 1830 REPORT STATUS: Signed EXAMINATION: CHEST SINGLE (PORTABLE) COMPARISON: Chest x-ray 06/02/2017 INDICATION: FEVER [id number] 1830 Y DISCUSSION: Frontal view of the chest obtained at 1838 hours. HEART AND MEDIASTINUM: Stable cardiomegaly. The ureter is tortuous LINES: Dual-lead pacemaker wires terminate in the right atrium and right ventricle. MediPort catheter terminates in the SVC LUNGS: Diffuse hyperinflation suggestive of small airways disease. Wispy bands of chronic atelectasis/scarring in the left lung base. No pneumonia or pulmonary edema. PLEURA: No pleural effusion or pneumothorax. BONES AND SOFT TISSUES: Stable degenerative changes of the shoulders. The bones are diffusely demineralized. The soft tissues are normal. IMPRESSION: 1. Cardiomegaly without vascular congestion. 2. Medical devices as described above. 3. No acute cardiopulmonary process. Signed by: Dr. Roque Dai MD on 02/21/2020 6:55 PM Dictated By: ROQUE DAI MD 54 Transcribed By: NEO on 02/21/201854 COPY TO: STEVE BURGER MD - PET/CT TUMOR SK MIDTH 2020-02-07 13:54:00 FAX: Letitia RamosMar LinGerard reyna [phone] [place]: St: REG FAX: Carlos Douglass [phone] Name: SHERLY CASTELLANOS [facility] : 1930 Age/S: 89/F [address] [facility] Unit #: [id number] Loc: [place] [address] Phys: Carlos Rivers MD Acct: [id number] Dis Date: Status: REG CLI PHONE #: [phone] Exam Date: 02/07/2020944 FAX #: [phone] Reason: FOLLICULAR LYMPHOMA EXAMS: CPT CODE: [id number] PET/CT TUMOR SK MIDTH 35599 HISTORY: Follicular lymphoma. COMPARISON: None available. Location: [facility]. PET/CT SCAN: 11.3 mCi of FDG administered. [...] Signed Report (CONTINUED) FAX: Gerard Selby DO [phone] [place]: St: REG FAX: Carlos Douglass [phone] Name: SHERLY CASTELLANOS [facility] : 1930 Age/S: 89/F [address] [facility] Unit #: [id number] Loc: [place] [address] Phys: Carlos Rivers MD Acct: [id number] Dis Date: Status: REG CLI PHONE #: [phone] Exam Date: 02/07/2020 0945 FAX #: [phone] Reason: FOLLICULAR LYMPHOMA EXAMS: CPT CODE: [id number] PET/CT TUMOR SK BS MIDTH 60007 <Continued> at 1354 Reported and signed by: Donato Loredo M.D. CC: Gerard Nielsen DO; Carlos Rivers MD Technologist: Lizzie Calvert RT(N) Trnscrd Date/Time/By: 02/07/2020 (3980) : By: [email or web address] Orig Print D/T: S: 02/07/2020 (1100) PAGE 2 Signed Report - XR CHEST 1 V 2020-01-12 15:59:00 FAX: Y Gerard Nielsen DO [phone] [place]: St: REG -- Name: SHERLY CASTELLANOS [facility] : 1930 Age/S: 89/F [address] [facility] #: [id number] Loc: [place] [address] Phys: Anant Whiting MD Acct: [id number] Dis Date: Status: REG [facility] PHONE #: [phone] Exam Date: 01/12/2020 1550 FAX #: [phone] Reason: line placement EXAMS: CPT CODE: [id number] XR CHEST 1 V 06899 REASON FOR EXAM: line placement EXAM ORDER DATE: 01/12/2020 3:27 PM Ordering: Anant Whiting MD Attending:Anant Whiting MD Location:[facility] PROCEDURE: - XR CHEST 1 V COMPARISON: FINDINGS: Portable AP frontal view of the chest obtained at 3:38 PM shows clear lungs without evidence of consolidation. There is no evidence of effusion. The heart size is minimally enlarged. A left subclavian pacemaker noted. Pulmonary vasculatures are unremarkable. IMPRESSION: Right subclavian Port-A-Cath tip is in the SVC. No evidence of pneumothorax at 1558 Reported and signed by: Brody Head M.D. CC: Gerard Nielsen DO Technologist: HESHAM AquinoR Trnscrd Date/Time/By: 01/12/2020 (6961) : By: Jose CL Orig Print D/T: S: 01/12/2020 (5238) PAGE 1 Signed Report GLUBED 2020-01-12 11:35:00 Test Item GLUBED (test code = GLUBED) 100 mg/dL 74-106 N Performed by certified wash operator at [facility] COVID 19 Asymptomatic IH [id number] 12:50:00* Test Item Value Reference Range Interpretation Comments COVID 19 Asymptomatic IH AG (test code = COVNONPUIAG) NEGATIVE COMPREHENSIVE METABOLIC [id number] 11:30:00* Test Item Value Reference Range Interpretation [...] due to change in reagent. COMPREHENSIVE METABOLIC [id number] 11:25:00* Test Item Value Reference Range Interpretation [...] code = ALKP) IUnit/L 45-117 CBC W/AUTO [id number] 11:14:00* Test Item Value Reference Range Interpretation [...] NRBC#) 0.00 K/mm3 0.0-0.1 N CBC W/AUTO [id number] 11:13:00* Test Item Value Reference Range Interpretation [...] (test code = BA#) K/mm3 0.0-0.2 SOFT [id number] 16:44:00 RUN DATE: 01/03/20 [facility] PAGE 1 RUN TIME: 1644 Specimen Inqui ry RUN USER: INTERFACE PATIENT: SHERLY CASTELLANOS ACCT #: [id number] LOC: [facility] U #: [id number] AGE/SX: 89/F ROOM: RE12/23/19REG DR: Anant Whiting MD : 30 BED: DIS: STATUS: [facility] TLOC: SPEC #: [id number] RECD: 12/23/19 STATUS: LINDSAY MEYER #: [id number] DEMETRIUS: 12/23/19-[address] [facility] [address]: Anant Whiting MD ENTERED: 12/23/19-1244 SP TYPE: SOFT MASS OTHR DR: Mark Lopez od, DO ORDERED: GROSS COPIES TO: Anant Whiting MD [address] [place] [address] Mark Nielsen DO [address] [place] [address] PROCEDURES: GROSS (01/03/20-08) TISSU ES: TISSUE FROM [...] Mark Lozoya MD ([facility] CO NSULT REPORT) RRB/sm D 78029 CON TINUED ON NEXT PAGE RUN DATE: 01/03/20 [facility] PAGE 2 RUN TIME: 1644 Specimen Inquiry RUN USER: INTERFACE SPEC #: [id number] PATIENT: SHERLY CASTELLANOS #[id number] (Continued) FLOW CYTOMETRY Flow Cytometry Report #: [id number] Clinical D ataR69: Illness, unspecified Ezvqxzujwlozqu10.8% lambda-clonal B-lymphocyte popu lation consistent with non-Hodgkin [...] developed and its performance characteristics determined by [employer]. It has not been cleared or approved [...] ON NEXT PAGE RUN DATE: 01/03/20 [facility] - Lab PAGE 3 RUN TIME: 1644 Specimen Inquiry RUN USER: INTERFACE SPEC #: [id number] PATIENT: SHERLY CASTELLANOS #[id number] (Continued) FLOW CYTOMETRY (Continued) The above report was reviewed and interpretive comments are provided. The comments areapproved for the medical re cords of the identified patient with my electronic signature. Electronic Signatu Regina Monahan MDCPT Code(s): 73299,27188(x21),03660 ICD Code(s): R69 The Te chnical and Professional components were performed at [facility], [address] [place] [address], [address], [place] [address]. MACROSCOPIC The specimen is received fresh in [...] histologic ev aluation (1A-1C). GROSS PERFORMED AT [facility] [address] [place] [address] (P) MICROSCOPIC All of the stains, including any controls pe rformed, stain appropriately. MICROSCOPIC PERFORMED AT [facility] [address] [place] [address] [phone] OUTSIDE CONSULTATION [facility] Pathology Consult Report Case#: [id number] RIGHT GROIN , LYMPH NODE, EXCISION: INVOLVEMENT BY FOLLICULAR L YMPHOMA, LOW GRADE (WHO GRADE 1-2), FOLLICULAR AND DIFFUSE PATTERN CONTINUED ON NEXT PAGE RUN DATE : 01/03/20 [facility] PAGE 4 RUN TIME: 1644 Specimen Inquiry RUN USER: INTERFACE SPEC #: [id number] PATIENT: SHERLY CASTELLANOS #[id number] (Continued) OUTSIDE CONSULTATION (Continue d) Comment: Flow cytomety performed on fresh tissue from the lymph node austyn ws a clonal CD10 positive B cell population (see separate report for details). Case reviewed intradepartmentally by Dr. Graciela Monahan, who agrees with the abo ve diagnosis and interpretation. Materials Received Received from [facility] are 3 H E slides (1A, 1 B, .1C) labeled with patient name Nabila Castellanos and surgical accession number [id number] (1A, 1B, 1C), 3 paraffin bloc ks labeled as the following: [id number] (1A, 1B, 1C). Review Of Slides Sections [...] CD20: Increased number of B cells positive Flint-5 : Corresponds to CD20 staining CD3:T cells [...] 30-40 % proliferation rate This test was [employer] and its performance characteristics determined by [employer]. It has not been cleared or approved [...] complexity clinical testing. Electronic Signature Mark Lozoya, Regular Senior Care Provider CONTINUED ON NEXT PAGE RUN DATE: 01/03/20 [facility] PAGE 5 RUN TIME: 1644 Specimen Inquiry RUN USER: INTERFACE - SPEC #: [id number] PATIENT: SHERLY CASTELLANOS #[id number] (Continued) OUTSIDE CONSULTATION (Continued ) CPT Code(s): 98654,39814(x11),31597,38219 The Technical and Professio nal components were performed at [facility], [address] [facility] [address], [address], [place] [address]. PERFORMING SITE Diagnosis performed at: [facility] [employer] [facility] [place] [address] [place] [address] - Signed SIGNATURE ON FILE Byron Puri MD 01/03/20 1644 END OF REPORT SOFT [id number] 16:44:00 RUN DATE: 01/10/20 [facility] PAGE 1 RUN TIME: 1421 Specimen Inqui ry RUN USER: INTERFACE PATIENT: SHERLY CASTELLANOS ACCT #: [id number] LOC: [facility] U #: [id number] AGE/SX: 89/F ROOM: RE12/23/[facility] DR: Anant Whiting MD : 30 BED: DIS: STATUS: [facility] TLOC: SPEC #: [id number] RECD: 12/23/19-1243 STATUS: LINDSAY MEYER #: [id number] DEMETRIUS: 12/23/19-[address]: Anant Whiting MD ENTERED: 12/23/19-1245 SP TYPE: SOFT MASS OTHR DR: Mark Lopez od, DO ORDERED: GROSS COPIES TO: Anant Whiting MD [address] [place] [address] Mark Nielsen DO [address] [place] [address] PROCEDURES: GROSS (01/03/20-852) TISSU ES: TISSUE FROM GROIN - RIGHT MASS ADDENDUM FINDINGS Addendum #1 Entered: 01/10/20 A Fish report is received from [facility] [id number]/Case#: [id number] and the interpretation is as follows: Clinical [...] of CONTINUED ON NEXT PAGE RUN DATE: [facility] PAGE 2 RUN TIME: 1421 Specimen Inquiry RU N USER: INTERFACE ---- --------SPEC #: [id number] PATIENT: SHERLY CASTELLANOS #[id number] (Continued) ADDENDUM FINDINGS (Continued) each gene region, respectively. These results should be interpreted within the context of other relevant testing on this individual. nuc teresa(APU0b6-7)[],(MYCx3-5)[],(5'FLY1f4-1,3'WDS7d1-1)(5'BCL2 con 3'BCL2x1)[] A total of 200 interphase [...] (3q27.3) MYC (8q24.21) BCL2 (18q21) (All probes [employer]) Interphase FISH is performed to screen for [facility] loci indicated above and does not detect other chromosomal abnormalities. Scoring Process: The scoring for this case was completed using a per cell nucle i approach to signal counting and was performed manually by a licensed technolo gist. Disclaimer: This test was developed and its performance characteristic s determined by [employer]. It has not been cleared or approved [...] complexity clinical testing. Electronic Signature Mark santa, Regular Senior Care Provider CPT Code(s): 56916(x3) ICD Code(s): C82.85; R69 The Technical and Professional components [facility], [address] [place] [address], [address], [place] [address]. Addendum Signed SIGN ATURE ON FILE Byron Puri MD 01/10/20 1421 CONTINUED ON NEXT PAGE RUN SERGIO E: 01/10/20 [facility] PAGE 3 RUN TIME: 1421 Specimen Inquiry RUN USER: INTERFACE SPEC #: [id number] PATIENT: JASMINSHERLY # [id number] (Continued) CLINICAL HISTORY COLLECTION DA TE: 12/23/19 COMMENT [facility] Comment: Flow cytomety performed on [facility] tissue from the lymph node shows a [...] Lozoya MD ([facility] CONSULT REPORT) RRB/ D [address] FLOW CYTOMETRY Flow Cytometry Report 90/Case #: [id number] Clinical DataR69: Illness, unspecified Interpretation4 4.8% lambda-clonal [...] CONTINUED ON NEXT PAGE RUN DATE: 01/10/20 [facility] PAGE 4 RUN TIME : 1421 Specimen Inquiry RUN USER: INTERFACE SPEC #: [id number] PATIENT: SHERLY CASTELLANOS #[id number] (Continued) FLOW CYTOMETRY (Continued) Abnormal B-cell population [...] and its performance víctor acteristics determined by [employer]. It has not been cleared or approv ed by the U.S. Food and Drug Administration.The FDA has determined that such waa arance is not necessary. This test is [...] electronic signature. Electronic SignatureNeha Monahan MDCPT Code(s): 19563,07009(x21),97953 ICD Code(s): R69 The Techni rani and Professional components were performed at [facility], [address] [place] [address], [address], [place] [address]. MACROSCOPIC The spec imen is received fresh [...] ON NEXT PAGE -- RUN DATE: 01/10/20 [facility] PAGE 5 RUN TIME: 1421 Specimen Inquiry RUN USER: INTERFACE SPEC #: [id number] PATIENT: SHERLY CASTELLANOS #[id number] (Continued) MACROSCOPIC (Continued) GROSS PERFORMED AT [facility] [address] [place] [address] [phone] MICROSCOPIC All of the stains, including any controls pe rformed, stain appropriately. MICROSCOPIC PERFORMED AT [facility] [address] [place] [address] [phone] OUTSIDE CONSULTATION [facility] Pathology Consult Report Case#: [id number] RIGHT GROIN , LYMPH NODE, EXCISION: INVOLVEMENT BY FOLLICULAR L YMPHOMA, LOW GRADE (WHO GRADE 1-2), FOLLICULAR AND DIFFUSE PATTERN Comment: Flow cytomety performed on fresh tissue from the lymph node shows a clonal CD10 positive B cell population (see separate report for details). Case reviewed intradepartmentally by Dr. Graciela Monahan, who agrees with the above diagnosis and interpretation. Materials Received Received from [facility] are 3 H E slides (1A, 1 B, .1C) labeled with patient name Sherly garibay and surgical accession number [id number] (1A, 1B, 1C), 3 paraffin blocks l abeled as the following: [id number] (1A, 1B, 1C). Review Of Slides Sec [...] CONTINUED ON NEXT PAGE RUN DATE: 01/10/20 [facility] PAGE 6 RUN ARY E: 1421 Specimen Inquiry RUN USER: INTERFACE -SPEC #: [id number] PATIENT: SHERLY CASTELLANOS #[id number] (Continued) OUTSIDE CONSULTATION (Continued) Flint-5 : Corresponds to CD20 staining CD3:T cells [...] 30-40 % proliferation rate This test was maryjo oconnell and its performance characteristics determined by [employer]. It has not been cleared or approved [...] complexity clinical testing. Electronic Signature Mark Lozoya, Regular Senior Care Provider CPT Code(s): 32390,92521(x11),92623,23074 The Technical and Professional components were performed at [facility], [address] [facility] [address] [address]. PERFORMING SITE Diagnosis performed at: [facility], [place] [address] [place] [address] ----- ------- Signed SIGNATURE ON FILE Byron Puri MD 12/24 1644 END OF REPORT * * SOFT [id number] 16:44:00 RUN DATE: 01/12/20 [facility] PAGE 1 RUN TIME: 1556 Specimen Inqui ry RUN USER: INTERFACE PATIENT: SHERLY CASTELLANOS ACCT #: [id number] LOC: [facility] U #: [id number] AGE/SX: 89/F ROOM: RE12/23/19REG DR: Anant Whiting MD : 30 BED: DIS: STATUS: [facility] TLOC: SPEC #: [id number] RECD: 12/23/19 STATUS: LINDSAY RE #: [id number] DEMETRIUS: 12/23/19-[address]: Anant Wihting MD ENTERED: 12/23/19 SP TYPE: SOFT MASS OTHR DR: Mark Lopez od, DO ORDERED: GROSS COPIES TO: Anant Whiting MD [address] [place] [address] Mark Nielsen DO [address] [place] [address] PROCEDURES: GROSS (01/03/20-08) TISSU ES: TISSUE FROM GROIN - RIGHT MASS ADDENDUM FINDINGS Addendum #2 Entered: 01/12/207 A Fish report is received from [facility] Acclyn patino#: [id number] Case#:[id number] and the interpretation is as follows: FOLLICULAR [...] on this individual. nuc teresa(IGH,BCL2)x 3-4(IGH con WQX7s7-5)[] A total of 200 interphase nuclei were scored fo r for t(14;18) probe set on a tumor tissue cells and revealed a positive result . A translocation between IGH and BCL6, at 14q32 and 18q21, was seen in 60% of cells analyzed. Analyzed Probes: CONTINUED ON NEXT PAGE RUN DATE: 01/12/20 [facility] PAGE 2 RUN TIME: 1551 Specimen Inquiry RUN USER: INTERFACE SPEC #: [id number] PRIMITIVOE NT: SHERLY CASTELLANOS #[id number] (Continued) ADDENDUM FINDINGS (Continued) IGH (14q32.3) and BCL2 (18q21) dual fu alyssa probe (langtaojin) set to detect a t(14;18). The scoring [...] and its performance characte ristics determined by [employer]. It has not been cleared or approved [...] complexity clinical testing. Electronic Signature Mark Lozoya, Regular Senior Care Provider CPT Code(s): 25616 ICD Code(s): C82.85; R69 The Technical and Professional components were performed at [facility] , [address] , [address], [place] [address]. Addendum Signed SIGNATURE ON FILE Byron Puri MD 01/12/20 1551 Addendum #1 Entered: 01/10/20-3043 A Fish report is received giovanna ROSALES [id number] and the interpretation is as follows: Clinical [...] CONTINUED ON NEXT PAGE RUN DATE: 01/12/20 [facility] PAGE 3 RUN TIME: 1551 Specimen Inquiry RUN USER: INTERFACE SPEC #: [id number] PATIENT: SHERLY CASTELLANOS #[id number] (Continued) -- ADDENDUM FINDINGS (Continued) (sometimes with [...] relevant testing on this individual. nuc teresa(BCL 6x3-5)[],(MYCx3-5)[/50],(5'GGB5h8-5,3'MGD6b6-2)(5'BCL2 con 3'BCL2x1)[ 50] A total of 200 interphase nuclei [...] MYC (8q24. 21) BCL2 (18q21) (All probes [employer]) Interphase FISH is performed to scr een for the loci indicated above and does not detect other chromosomal abnormal ities. Scoring Process: The scoring for this case was completed using a per cell nuclei approach to signal counting and was performed manually by a license d technologist. Disclaimer: This test was developed and its performance [facility] determined by [employer]. It has not been cleared or appr [...] complexity clinical testing. Electronic Signature Mark Lozoya, Regular Senior Care Provider CPT Code(s): 26046(x3) ICD Code(s): C82.85 ; R69 The Technical and Professional components were performed at [facility], [address], [address], [place] [address]. CONTINUED ON NEXT PAGE RUN DATE: 12/24 02/12 [facility] PAGE 4 RU N TIME: 1558 Specimen Inquiry RUN USER: INTERFACE ------ ------SPEC #: [id number] PATIENT: SHERLY CASTELLANOS #[id number] (Continued) ADDENDUM FINDINGS (Continued) Ad dendum Signed SIGNATURE ON FILE Byron Puri MD 01/10/20 1421 CLINICAL HISTORY COLLECTION DATE: 12/23/19 C OMMENT ADX Comment: Flow cytomety performed on fresh tissue from the lymph node shows a clonal CD10 positive B cell population (see separate report for nancy wasihngton). Case reviewed intradepartmentally by Dr. Graciela Monahan, who agrees with the above diagnosis and interpretation. 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 Comment:The immunophenot ype is nonspecific. Most clonal B-cells express surfacelambda,CD20, CD23, and CD 23. A minute subpopulation appears to express CD5 as well. Thedifferential diagn osis includes but is not limited to follicular lymphoma, Burkitt lymphoma CONTINUED ON NEXT PAGE RUN DATE: 12/24 02/12 [facility] PAGE 5 RU N TIME: 6402 Specimen Inquiry RUN USER: INTERFACE ------ ------SPEC #: [id number] PATIENT: SHERLY CASTELLANOS #[id number] (Continued) FLOW CYTOMETRY (Continued) and diffuse large [...] developed and its performance characteristics determined by [employer]. It has not been cleared or approved [...] identified patient with my electronic signature. Electronic SignatureMhDINH VazquezPT Code(s): 90109,36849(x21),08232 ICD Code(s): R69 The Technical and Professional components were performed at [facility], [address] [place] [address], [address], [place] [address]. CONTINUED ON NEXT PAGE RUN DATE: 01/12/20 [facility] PAGE 6 RUN TIME: 1551 Specimen Inquiry RUN USER: INTERFACE SPEC #: [id number] PATIENT: SHERLY CASTELLANOS #[id number] (Continued)----- ------- MACROSCOPIC The specimen is received [...] for histologic evaluation (1A-1C). GROSS PERFORMED AT [facility] [address] [place] [address] (p)[phone] MICROSCOPIC All of the stains, including any controls performed, stain appropriately. 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 tissue from the lymph node shows a clonal CD10 positive B cell population (see separate report for details). Case reviewed intradepartmentally by Dr. Graciela Monahan, who agrees with the above diagnosis and interpretation. Mater ials Received Received from [facility] are 3 H E slides (1A, 1 B, .1C) labeled with patient name Sherly Castellanos and surgical accession number [id number] (1A, 1B, 1C), 3 paraffin blocks labeled as the following: [id number] (1A, 1B, 1C). Review Of Slides CONTINUED ON NEXT PAGE RUN DATE: 01/12/20 [facility] PAGE 7 RUN TIME: 1551 S william Inquiry RUN USER: INTERFACE SPEC #: [id number] PATIENT: SHERLY CASTELLANOS #[id number] (Continued) OUTS ALEXIA CONSULTATION (Continued) Sections show [...] Increa sed number of B cells positive Flint-5: Corresponds to CD20 staining CD3:T thea ls [...] and its performance characteristics de termined by [employer]. It has not been cleared or approved [...] complexity clinical testing. Electronic Signature Mark Lozoya, Regular Senior Care Provider CPT Code(s): 30634,41990(x11),41963,87139 The Technical and Professional components were performed at [facility], [address], [address], [place] [address]. PERFO RMING SITE Diagnosis performed at: [facility] [address] [place] [address] CONTINUED ON NEXT PAGE RUN DATE: 01/12/20 [facility] PAGE 8 RUN TIME: 1551 Specimen Inquiry RUN USER: INTERFACE SPEC #: [id number] PATIENT: AVIVA CASTELLANOSHA #[id number] (Continued) --------- --- Signed SIGNATURE ON FILE Byron Puri MD 01/03/20 1644 END OF REPORT LMUUFU8525-23-02 10:44:00* Test Item Value Reference Range Interpretation Comments GLUBED (test code = GLUBED) 85 mg/dL 74-106 N Performed by certified wash operator at [facility] COVID 19 Asymptomatic IH BQ2987-44-86 15:15:00* Test Item Value Reference Range Interpretation Comments COVID 19 Asymptomatic IH AG (test code = COVNONPUIAG) NEGATIVE CBC W/AUTO BETI4206-37-08 15:14:00* Test Item Value Reference Range Interpretation [...] NRBC#) 0.00 K/mm3 0.0-0.1 N BASIC METABOLIC ZFOBN3820-44-07 14:26:00* Test Item Value Reference Range Interpretation [...] = CA) 9.7 mg/dL 8.5-10.1 N Sodium Vslbz4927-71-60 19:45:00* Test Item Value Reference Range Interpretation Comments Sodium Level (test code = 2951-2) 142 136-145 [facility] Uhguw1884-08-73 19:45:00* Test Item Value Reference Range Interpretation Comments Potassium Level (test code = 2823-3) 4.1 3.5-5.1 [facility] HospitalChloride Bwcwb9360-27-66 19:45:00* Test Item Value Reference Range Interpretation Comments Chloride Level (test code = 2075-0) 105 98-107 [facility] HospitalCarbon Dioxide Rmqdy1760-78-66 19:45:00* Test Item Value Reference Range Interpretation Comments Carbon Dioxide Level (test code = 2028-9) 23 -29 [facility] HospitalAnion Lui7096-86-98 19:45:00* Test Item Value Reference Range Interpretation Comments Anion Gap (test code = 86519-1) 18.1 8-16 H [facility] HospitalBlood Urea Eztojyyo0879-27-39 19:45:00* Test Item Value Reference Range Interpretation Comments Blood Urea Nitrogen (test code = 3094-0) 20 7-26 [facility] HospitalCreatinine2018-02-01 19:45:00* Test Item Value Reference Range Interpretation Comments Creatinine (test code = 2160-0) 1.20 0.57-1.11 H [facility] HospitalBUN/Creatinine Aylhl6020-99-39 19:45:00* Test Item Value Reference Range Interpretation Comments BUN/Creatinine Ratio (test code = 3097-3) 17 6-25 [facility] HospitalEstimat Glomerular Filtration Rate 2017-06-26 19:45:00* Test Item Value Reference Range Interpretation Comments Estimat Glomerular Filtration Rate (test code = 68230-3) 43 >60 L Ranges were taken from the National Kidney Disease Education Program and the [facility] literature.Reference ranges:60 or greater: Evfvzd15-43 ( for 3 consecutive months): Chronic kidney disease 15 or less: Kidney failureEastland Memorial HospitalGlucose Khurs1694-56-55 19:45:00* Test Item Value Reference Range Interpretation Comments Glucose Level (test code = COO5671) 178 74-118 H [facility] HospitalCalcium Lgyqh2960-31-11 19:45:00* Test Item Value Reference Range Interpretation Comments Calcium Level (test code = 27047-4) 10.2 8.4-10.2 [facility] HospitalTotal Rzivqyxzj3441-02-93 19:45:00* Test Item Value Reference Range Interpretation Comments Total Bilirubin (test code = 1975-2) 0.6 0.2-1.2 [facility] HospitalAspartate Amino Transf (AST/SGOT) 2017-06-26 19:45:00* Test Item Value Reference Range Interpretation Comments Aspartate Amino Transf (AST/SGOT) (test code = Aspartate Amino Transf (AST/SGOT)) 17 5-34 [facility] HospitalAlanine Aminotransferase (ALT/SGPT) 2017-06-26 19:45:00* Test Item Value Reference Range Interpretation Comments Alanine Aminotransferase (ALT/SGPT) (test code = 1742-6) 11 0-55 [facility] HospitalTotal Iwyylca4420-85-89 19:45:00* Test Item Value Reference Range Interpretation Comments Total Protein (test code = 2885-2) 7.9 6.5-8.1 [facility] HospitalAlbumin2018-02-01 19:45:00* Test Item Value Reference Range Interpretation Comments Albumin (test code = 1751-7) 4.2 3.5-5.0 [facility] HospitalGlobulin2018-02-01 19:45:00* Test Item Value Reference Range Interpretation Comments Globulin (test code = 85286-2) 3.7 2.3-3.5 H [facility] HospitalAlbumin/Globulin Crlei6071-61-73 19:45:00 * Test Item Value Reference Range Interpretation Comments Albumin/Globulin Ratio (test code = 1759-0) 1.1 0.8-2.0 [facility] HospitalAlkaline Katbqvazrlm9311-01-00 19:45:00* Test Item Value Reference Range Interpretation Comments Alkaline Phosphatase (test code = 6768-6) 82 40-150 [facility] HospitalProthrombin Hdet5747-59-10 19:34:00* Test Item Value Reference Range Interpretation Comments Prothrombin Time (test code = 5902-2) 13.4 11.9-14.5 [facility] HospitalProthromb Time International Ratio 2017-06-26 19:34:00* Test Item Value Reference Range Interpretation Comments Prothromb Time International Ratio (test code = 6301-6) 0.97 Oral Anticoagulant Therapy INR Values:1. Low Intensity Therapy 1.5 - 2.02 . Moderate Intensity Therapy 2.0 - 3.03. High Intensity Therapy(1) 2.5 - 3. 54. High Intensity Therapy(2) 3.0 - 4.05. Panic Value INR > 5.0 [facility] HospitalActivated Partial Thromboplast Time 2017-06-26 19:34:00* Test Item Value Reference Range Interpretation Comments Activated Partial Thromboplast Time (test code = 11450-0) 36.7 23.8-35.5 H [facility] HospitalWhite Blood Retoj9209-31-16 19:23:00* Test Item Value Reference Range Interpretation Comments White Blood Count (test code = 6690-2) 10.45 4.8-10.8 [facility] HospitalRed Blood Aiktq8393-01-89 19:23:00* Test Item Value Reference Range Interpretation Comments Red Blood Count (test code = 789-8) 3.34 3.6-5.1 L [facility] HospitalHemoglobin2018-02-01 19:23:00* Test Item Value Reference Range Interpretation Comments Hemoglobin (test code = 74671-4) 9.8 12.0-16.0 L [facility] HospitalHematocrit2018-02-01 19:23:00* Test Item Value Reference Range Interpretation Comments Hematocrit (test code = 4544-3) 30.6 34.2-44.1 L [facility] HospitalMean Corpuscular Qmgxzh6539-11-17 19:23:00* Test Item Value Reference Range Interpretation Comments Mean Corpuscular Volume (test code = 787-2) 91.6 81-99 [facility] HospitalMean Corpuscular Alokdlcisu0124-84-75 19:23:00* Test Item Value Reference Range Interpretation Comments Mean Corpuscular Hemoglobin (test code = 785-6) 29.3 28-32 [facility] HospitalMean Corpuscular Hemoglobin Concent 2017-06-26 19:23:00* Test Item Value Reference Range Interpretation Comments Mean Corpuscular Hemoglobin Concent (test code = 786-4) 32.0 31-35 [facility] HospitalRed Cell Distribution Nembq8538-75-60 19:23:00* Test Item Value Reference Range Interpretation Comments Red Cell Distribution Width (test code = 08106-5) 13.8 11.7 -14.4 [facility] HospitalPlatelet Ejbmk0945-31-08 19:23:00* Test Item Value Reference Range Interpretation Comments Platelet Count (test code = 777-3) 400 140-360 H [facility] HospitalNeutrophils (%) (Auto)2017-06-26 19:23:00 * Test Item Value Reference Range Interpretation Comments Neutrophils (%) (Auto) (test code = 01271-4) 56.5 38.7-80.0 [facility] HospitalLymphocytes (%) (Auto)2017-06-26 19:23:00 * Test Item Value Reference Range Interpretation Comments Lymphocytes (%) (Auto) (test code = 736-9) 33.0 18.0-39.1 [facility] HospitalMonocytes (%) (Auto)2017-06-26 19:23:00* Test Item Value Reference Range Interpretation Comments Monocytes (%) (Auto) (test code = 5905-5) 6.9 4.4-11.3 [facility] HospitalEosinophils (%) (Auto)2017-06-26 19:23:00 * Test Item Value Reference Range Interpretation Comments Eosinophils (%) (Auto) (test code = 713-8) 2.6 0.0-6.0 [facility] HospitalBasophils (%) (Auto)2017-06-26 19:23:00* Test Item Value Reference Range Interpretation Comments Basophils (%) (Auto) (test code = 706-2) 0.5 0.0-1.0 [facility] HospitalIM GRANULOCYTES %2017-06-26 19:23:00* Test Item Value Reference Range Interpretation Comments IM GRANULOCYTES % (test code = IM GRANULOCYTES %) 0.5 0.0- 1.0 [facility] HospitalNeutrophils # (Auto)2017-06-26 19:23:00* Test Item Value Reference Range Interpretation Comments Neutrophils # (Auto) (test code = 751-8) 5.9 2.1-6.9 [facility] HospitalLymphocytes # (Auto)2017-06-26 19:23:00* Test Item Value Reference Range Interpretation Comments Lymphocytes # (Auto) (test code = 23590-5) 3.5 1.0-3.2 H [facility] HospitalMonocytes # (Auto)2017-06-26 19:23:00* Test Item Value Reference Range Interpretation Comments Monocytes # (Auto) (test code = 742-7) 0.7 0.2-0.8 [facility] HospitalEosinophils # (Auto)2017-06-26 19:23:00* Test Item Value Reference Range Interpretation Comments Eosinophils # (Auto) (test code = 711-2) 0.3 0.0-0.4 [facility] HospitalBasophils # (Auto)2017-06-26 19:23:00* Test Item Value Reference Range Interpretation Comments Basophils # (Auto) (test code = 704-7) 0.1 0.0-0.1 [facility] HospitalAbsolute Immature Granulocyte (auto 2017-06-26 19:23:00* Test Item Value Reference Range Interpretation Comments Absolute Immature Granulocyte (auto (kevin t code = Absolute Immature Granulocyte (auto) 0.05 0-0.1 [facility] HospitalBedside Labrycc3931-74-67 11:46:00* Test Item Value Reference Range Interpretation Comments Bedside Glucose (test code = 75770-5) 179 70-120 H Meter ID: [id number] Memorial HospitalMagnesium Level 2017-06-05 09:03:00* Test Item Value Reference Range Interpretation Comments Magnesium Level (test code = 22502-6) 1.4 1.3-2.1 [facility] HospitalUrine Ddvuvee8566-72-45 10:11:00* Test Item Value Reference Range Interpretation Comments Urine Culture (test code = 630-4) Organism: ESCHERICHIA COLI [facility] HospitalPhosphorus Scqgm8128-97-05 09:23:00* Test Item Value Reference Range Interpretation Comments Phosphorus Level (test code = IKV2609) 4.1 2.3-4.7 [facility] HospitalTriglycerides Qfhjw3317-88-30 06:18:00* Test Item Value Reference Range Interpretation Comments Triglycerides Level (test code = 2571-8) 130 0-149 [facility] HospitalCholesterol Egbpx1280-50-28 06:18:00* Test Item Value Reference Range Interpretation Comments Cholesterol Level (test code = 2093-3) 145 0-199 Less than 200 mg/dL Low Spbb773 - 239 mg/dL Borderline Ught802 m g/dl and greater High Risk [facility] HospitalLDL Lrujmezpxwz2207-18-14 06:18:00* Test Item Value Reference Range Interpretation Comments LDL Cholesterol (test code = 2089-1) 75 60-130 [facility] HospitalHDL Fipxsiaydcv3625-55-59 06:18:00* Test Item Value Reference Range Interpretation Comments HDL Cholesterol (test code = 2085-9) 44 40-60 [facility] HospitalCholesterol/HDL Sxsjl0254-45-21 06:18:00 * Test Item Value Reference Range Interpretation Comments Cholesterol/HDL Ratio (test code = 9830-1) 3.3 3.0-3.6 [facility] HospitalCreatine Kinase ZZ2297-02-52 23:01:00* Test Item Value Reference Range Interpretation Comments Creatine Kinase MB (test code = 05913-0) 1.50 0.00-5.00 [facility] HospitalTroponin Q2494-68-74 23:01:00* Test Item Value Reference Range Interpretation Comments Troponin I (test code = 75346-9) 0.020 0-0.300 [facility] HospitalCreatine Xmuwsj3971-33-36 22:56:00* Test Item Value Reference Range Interpretation Comments Creatine Kinase (test code = 2157-6) 60 29-168 [facility] HospitalHemoglobin A1c Tidsvpy1427-59-10 09:01:00 * Test Item Value Reference Range Interpretation Comments Hemoglobin A1c Percent (test code = Hemoglobin A1c Percent) 6.5 4.0-7.0 [facility] HospitalUrine ZZD3765-46-69 06:31:00* Test Item Value Reference Range Interpretation Comments Urine WBC (test code = 5821-4) 21-50 0-5 H [facility] HospitalUrine MAF4080-95-30 06:31:00* Test Item Value Reference Range Interpretation Comments Urine RBC (test code = 80175-2) 6-10 0-5 H [facility] HospitalUrine Irzoufea0095-63-37 06:31:00* Test Item Value Reference Range Interpretation Comments Urine Bacteria (test code = 26468-7) FEW NONE [facility] HospitalUrine Epithelial Tiulp1019-23-97 06:31:00 * Test Item Value Reference Range Interpretation Comments Urine Epithelial Cells (test code = 71709-3) FEW NONE [facility] HospitalUrine Transitional Epithelial Cells 2017-06-02 06:31:00* Test Item Value Reference Range Interpretation Comments Urine Transitional Epithelial Cells (test code = 8249-5) MODERATE NONE H [facility] HospitalUrine Qimep5752-00-39 06:19:00* Test Item Value Reference Range Interpretation Comments Urine Color (test code = 5778-6) YELLOW YELLOW [facility] HospitalUrine Unitqxr0465-63-32 06:19:00* Test Item Value Reference Range Interpretation Comments Urine Clarity (test code = 86987-4) CLEAR CLEAR [facility] HospitalUrine Specific Yhsfwyi6750-04-79 06:19:00 * Test Item Value Reference Range Interpretation Comments Urine Specific [place] (test code = 5811-5) 1.010 1.010-1.02 5 [facility] HospitalUrine mS4465-56-95 06:19:00* Test Item Value Reference Range Interpretation Comments Urine pH (test code = 29720-2) 7 5-7 [facility] HospitalUrine Leukocyte Gkasaoer9452-11-08 06:19:00* Test Item Value Reference Range Interpretation Comments Urine Leukocyte Esterase (test code = 5799-2) 2+ NEGATIVE H [facility] HospitalUrine Fjivocm6692-91-47 06:19:00* Test Item Value Reference Range Interpretation Comments Urine Nitrite (test code = 87167-2) NEGATIVE NEGATIVE [facility] HospitalUrine Grsktpj8626-00-01 06:19:00* Test Item Value Reference Range Interpretation Comments Urine Protein (test code = 5804-0) NEGATIVE NEGATIVE [facility] HospitalUrine Glucose (UA)2017-06-02 06:19:00* Test Item Value Reference Range Interpretation Comments Urine Glucose (UA) (test code = 2349-9) NEGATIVE NEGATIVE [facility] HospitalUrine Xfltqbr0734-41-64 06:19:00* Test Item Value Reference Range Interpretation Comments Urine Ketones (test code = 03331-2) NEGATIVE NEGATIVE [facility] HospitalUrine Utyykbnafpao8954-12-60 06:19:00* Test Item Value Reference Range Interpretation Comments Urine Urobilinogen (test code = 64745-0) 0.2 0.2-1 [facility] HospitalUrine Bwqwecjrd8076-38-23 06:19:00* Test Item Value Reference Range Interpretation Comments Urine Bilirubin (test code = 1978-6) NEGATIVE NEGATIVE [facility] HospitalUrine Tpuhr5746-89-46 06:19:00* Test Item Value Reference Range Interpretation Comments Urine Blood (test code = 09604-1) NEGATIVE NEGATIVE [facility] HospitalCHEST SINGLE (PORTABLE) [facility] [address] [place] [address] Patient Name: SHERLY CASTELLANOS MR #: [id number] : 1930 Age/Sex: 86/F Req #: [id number] Adm Physician: BLAKE MILLARD MD Ordered by: BLAKE MILLARD MD Report #: [id number] Location: [facility] Room/Bed: [place] [address] Procedure: [id number] DX/CHES T SINGLE (PORTABLE) Exam Date: 06/05/17 Exam Time: 1 015 REPORT STATUS: Signed PROCEDURE: CHEST SINGLE (PORTABLE) TECHNI QUE: Portable AP chest INDICATION: Shortness of breath COMPARISON: [facility], DX, CHEST SINGLE (PORTABLE), 06/02/2017, 6:23. FIN [...] TO: BLAKE MILLARD MD CT BRAIN WO [place] [address] Patient Name: SHERLY CASTELLANOS MR #: [id number] : 1930 Age/Sex: 86/F Req #: [id number] Adm Physician: Ordered by: STEVE BURGER MD Report #: [id number] Location: ER Room/Bed: Procedure: [id number] CT/CT BRAIN WO Exam Sergio e: 06/02/17 [...] TO: STEVE BURGER MD CHEST SINGLE (PORTABLE) [place] [address] Patient Name: SHERLY CASTELLANOS MR #: [id number] : 1930 Age/Sex: 86/F Req #: [id number] Adm Physician: BLAKE MILLARD MD Ordered by: STEVE BURGER MD Report #: [id number] Location: [facility] Room/Bed: [place] [address] Procedure: [id number] DX/CHEST SINGLE (PORTABLE) Exam Date: 06/02/17 Jaye fung Time: 617 REPORT STATUS: Signed EXAMINATION: CHEST SINGLE (PORTABLE [...]
--- NOTE | 2020-02-21 21:26 | NUR ---
PER DR BURGER, OK TO GIVEN 1G MEROPENEM Q 12 HOURS, DR BURGER SPOKE TO EPIC ANESTHESIA ANALYST DR MONTOYA, BOTH ARE AWARE OF CREATNINE LEVELS
[2020-02-21] MEDS ORDERED: ZOLPIDEM TARTRATE 5 MG TAB PO PRN (22:00)
[2020-02-21] MEDS ORDERED: TRAMADOL HCL 50 MG TAB PO PRN (22:00)
--- NOTE | 2020-02-21 22:55 | Consultation ---
DATE OF CONSULTATION: Pulmonary Critical Care Consultation CHIEF COMPLAINT: Malaise and fever. HISTORY OF PRESENT ILLNESS: The patient is an 89-year-old woman. She has a prior history of abnormal leukocytosis. 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 This year, she developed a lump in her groin and was subsequently diagnosed with B-cell lymphoma. She was started on chemotherapy last month. She completed her 3rd dose of chemo approximately 12 days ago. She now complains of increased malaise and fatigue. She had a fever for the past day or so. She does not complain of any chest pain. She does have some cough. She denies any nausea or vomiting. When she arrived in the emergency department, she was found to have a sodium of 115 with a CCA-gv-irajazvyhy ratio of 40 to 2.24. She also had some acidosis. She received some intravenous fluids along with antibiotics and now reports some improvement. PAST SURGICAL HISTORY: 1. 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 2. Status post bilateral knee replacements. 3. Status post hysterectomy. PAST MEDICAL HISTORY: 1. Diabetes. 2. Hypertension. 3. Diabetic neuropathy. 4. Gout. 5. Anemia. 6. Chronic renal insufficiency. FAMILY HISTORY: Hypertension and diabetes. SOCIAL HISTORY: The patient has never been a smoker or drinker. ALLERGIES: THE PATIENT IS ALLERGIC TO ERYTHROMYCIN. REVIEW OF SYSTEMS: There is no history of fevers. She has no headache or neck pain. She is not having any chest pain. She does not have any dyspnea. She does have some cough. She has no nausea or vomiting. She has no abdominal pain. She has no leg swelling. PHYSICAL EXAMINATION: VITAL SIGNS: The blood pressure is 110/60 and saturation is 98% on room air. The pulse is 97. The respiratory rate is 18 and the T-max is 100.4. HEENT: Shows no facial swelling or erythema. LYMPHATIC: Shows no submandibular, cervical, or supraclavicular adenopathy. CARDIAC: Reveals a regular rate and rhythm with normal S1 and S2. LUNGS: Auscultation of lungs shows decreased breath sounds at the bases. There is no wheezing. ABDOMEN: Soft and nontender. There is no rebound or guarding. EXTREMITIES: Shows no leg edema or calf tenderness. There is no cyanosis or clubbing. SKIN: Shows no rashes. NEUROLOGICAL: Shows no focal abnormalities. LABORATORY DATA: White blood cell count is 22.77, hemoglobin 7.3, and the platelet count is 267. The sodium is 115 and the PVR-we-fcbprrjjfd ratio is 40 to 2.24. The carbon dioxide is 16 with an anion gap of 18. Lactic acid is 1.8. Urinalysis is normal. IMPRESSION: 1. Hyponatremia. 2. Acute on chronic renal failure. 3. Hypovolemia. 4. Anemia, unspecified. 5. Leukocytosis fever and sepsis with unclear source. 6. B-cell lymphoma. PLAN: 1. The patient has received a fluid bolus. 2. She has been pancultured and started on broad-spectrum antibiotics. Because she has received chemotherapy recently, she does have an increased risk for healthcare acquired infections. 3. Continue to monitor creatinine and electrolytes. 4. Evaluation for anemia. The patient may need packed red blood cells. 5. Oncology consultation. MD LITO Beebe/JAYLIN /[id number]
[2020-02-21 23:30] VITALS: BP 104/83
[2020-02-22] VITALS (31 sets, daily range): BP systolic 82–123; BP diastolic 27–83
[2020-02-22] MEDS ORDERED: FUROSEMIDE INJ 10 MG/ML 4 ML VIAL ONE ×2 (02:59→11:11)
[2020-02-22] MEDS ORDERED: LEVALBUTEROL HCL SOLN NEBU 0.63 MG/3 ML NEB INH PRN (03:00)
[2020-02-22] MEDS ORDERED: FUROSEMIDE INJ 10 MG/ML 4 ML VIAL IV ONE ×2 (03:00→09:20)
[2020-02-22 04:48] LABS: BASOPHILS # (AUTO) 0.1 (0.0-0.1); BASOPHILS % 0.2 % (0.0-1.0); EOSINOPHILS # (AUTO) 0.5 (0.0-0.4); EOSINOPHILS % 1.9 % (0.0-6.0); LYMPHOCYTES # (AUTO) 0.6 (1.0-3.2); LYMPHOCYTES % 2.5 % (18.0-39.1); MEAN CORPUSCULAR HGB CONC 33.7 g/dL (31-35); MEAN CORPUSCULAR VOLUME 83.1 fL (81-99); MONOCYTES # (AUTO) 1.5 (0.2-0.8); MONOCYTES % 5.9 % (4.4-11.3); NEUTROPHILS # (AUTO) 21.4 (2.1-6.9); NEUTROPHILS % 87.8 % (38.7-80.0); PLATELET COUNT 220 x10e3/uL (140-360); RED BLOOD COUNT 2.43 x10e6/uL (3.6-5.1); RED CELL DISTRIBUTION WIDTH 13.2 % (11.7-14.4)
[2020-02-22 04:54] LABS: HEMATOCRIT 20.2 % (34.2-44.1); HEMOGLOBIN 6.8 g/dL (12.0-16.0)
[2020-02-22 05:10] LABS: ALBUMIN 3.5 g/dL (3.5-5.0); ALBUMIN/GLOBULIN RATIO 1.6 (0.8-2.0); ANION GAP 18.2 mmol/L (8-16); CALCIUM 8.5 mg/dL (8.4-10.2); CREATININE, SERUM 2.29 mg/dL (0.57-1.11); POTASSIUM 4.2 mmol/L (3.5-5.1)
[2020-02-22 05:21] LABS: PHOSPHORUS 4.1 MG/DL (2.3-4.7)
[2020-02-22 05:24] LABS: MAGNESIUM 0.8 MG/DL (1.3-2.1)
[2020-02-22] MEDS ORDERED: FUROSEMIDE INJ 10 MG/ML 4 ML VIAL IV PRN (06:15)
[2020-02-22] MEDS ORDERED: MAGNESIUM SULFATE 2GM/50ML 50 ML IV ONE ×2 (06:15→14:30)
[2020-02-22] MEDS: ACETAMINOPHEN 325 MG TAB PO PRN (06:28)
[2020-02-22] MEDS ORDERED: MEROPENEM 1GM 100 ML IV SCH (06:30)
[2020-02-22] MEDS ORDERED: SODIUM CHLORIDE 0.9% 250ML 250 ML IV ONE (06:35)
--- NOTE | 2020-02-22 06:41 | NUR ---
PRIMARY CARE PHYSICIAN: Dr. Aram Nielsen CHIEF COMPLAINT: confusion HISTORY OF PRESENT ILLNESS: This is an 89-year-old woman, developed confusion, found to have hyponatremia and anemia; ALso with JOAQUIN in setting of CKD3. Admitted for rehydration and care. 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 FAMILY HISTORY/SOCIAL HISTORY: Patient is . She has 4 children. No alcohol or illicits or cigarettes. MEDICATIONS: Per electronic medical records. REVIEW OF SYSTEMS: unreliable PHYSICAL EXAMINATION GENERAL: A tired-appearing woman resting in bed. HEENT: Anicteric. Pupils respond to light. CARDIOVASCULAR: Normal S1 and S2. PALPABLE LEFT CHEST PPM. LUNGS: Moderate breath sounds. : BUENO ABDOMEN: Soft, nontender and nondistended. EXTREMITIES: No edema or calf tenderness. NEUROLOGICAL: Alert and oriented times 3. She moves all extremities. SKIN: Dry. PSYCHIATRIC: Normal affect. LABS: Reviewed. MEDICATIONS: Reviewed. A/P: 89yoF: Hyponaremia- rehydrate ALFONSO due to hyponatremia- correct with hypertonic saline Pulmonary edema- fluid changed to hypertonic to reduce volume; IV lasix Pleural effusion- diurese as needed Hypomagnesemia- replace Severe anemia- check panel; stool occult Hypertensive heart ds with Cardiomegaly- amlodipine JOAQUIN- IVF CKD3 due to DM2- hab1c/lipids PHysical deconditioning - PT Prop: IV PPI BID; scd Dispo: check labs; cct>35mins MYA MILLARD MD, PHD.
[2020-02-22] MEDS: SODIUM BICARBONATE 650 MG TAB PO SCH ×3 (06:50→21:06)
[2020-02-22 07:30] LABS: CHOL/HDL RATIO 2.2 (3.0-3.6)
[2020-02-22] MEDS ORDERED: PANTOPRAZOLE SOD 40 MG TABEC PO SCH (07:30)
[2020-02-22] MEDS ORDERED: SODIUM CHLORIDE 3% 500 ML IV SCH (07:30)
[2020-02-22 07:57] LABS: FERRITIN 246.37 ng/mL (4.63-204.00)
[2020-02-22] MEDS: PANTOPRAZOLE 40 MG 10ML VIAL IV SCH ×2 (08:21→16:57)
[2020-02-22] MEDS: FERROUS SULFATE 325 MG TAB PO SCH (08:22)
[2020-02-22] MEDS: ALLOPURINOL 100 MG TAB PO SCH (08:22)
[2020-02-22] MEDS: MULTIVITAMINS/MINERALS TAB PO SCH (08:22)
[2020-02-22] MEDS: CYANOCOBALAMIN 1,000 MCG TAB PO SCH (08:23)
[2020-02-22] MEDS: PRAVASTATIN 20 MG TAB PO SCH (08:23)
--- NOTE | 2020-02-22 08:23 | Diagnostic Imaging Report ---
EXAM: CHEST SINGLE (PORTABLE) DATE: 02/22/2020 6:03 AM INDICATION: CHF COMPARISON: 02/21/2020 FINDINGS: Left sided pacing device and right subclavian chest port identified in stable position. The trachea is midline. There is blunting of the left costophrenic angle and a small effusion is suspected. There are mildly increased interstitial markings present bilaterally. There is no evidence for large focal consolidation or pneumothorax. The cardiac silhouette remains enlarged. Atherosclerotic ossifications are noted within the thoracic aorta. No acute osseous abnormality is identified. IMPRESSION: Mildly increased interstitial markings which are nonspecific but can be seen in the setting of edema. Small left pleural effusion. Signed by: Dr. Magdiel Grace MD on 02/22/2020 8:20 AM
[2020-02-22 08:51] LABS: ANISOCYTOSIS SLIGHT; EOSINOPHILS % (MANUAL) 2 % (0-7); LYMPHOCYTES % (MANUAL) 5 % (19-48); MONOCYTES % (MANUAL) 2 % (3.4-9.0); NEUTROPHILS % (MANUAL) 91 % (40-74)
[2020-02-22 08:52] LABS: PLATELET ESTIMATE ADEQUATE; PLATELET MORPHOLOGY COMMENT NORMAL; RBC MORPHOLOGY COMMENT NORMAL
[2020-02-22] MEDS ORDERED: AMLODIPINE BESYLATE 5 MG TAB PO SCH (09:00)
--- NOTE | 2020-02-22 09:27 | Diagnostic Imaging Report ---
EXAM: US RENAL RETROPERITONEAL COMP DATE: 02/22/2020 8:11 AM INDICATION: Acute renal failure COMPARISON: None FINDINGS: The right kidney is normal in size measuring 10.0 x 5.7 x 5.9 cm with cortical thickness of 1.4 cm. Cortical echogenicity is within normal limits. There is no evidence for solid renal mass, hydronephrosis, or shadowing calculi. The left kidney is normal in size measuring 11.8 x 6.1 x 4.6 cm with cortical thickness of 1.6 cm. Cortical echogenicity is within normal limits. There is no evidence for solid renal mass, hydronephrosis, or shadowing calcified. The urinary bladder is collapsed around a Arango catheter. Incidentally noted is sludge and small echogenic stones within the lumen of the gallbladder without evidence for wall thickening or pericholecystic fluid. IMPRESSION: Unremarkable sonographic appearance of the kidneys. Incidentally noted cholelithiasis. Signed by: Dr. Magdiel Grace MD on 02/22/2020 9:24 AM
[2020-02-22] MEDS ORDERED: NOREPINEPHRINE 8 MG/D5W 250 ML 250 ML IV PRN (10:15)
[2020-02-22] MEDS ORDERED: SODIUM CHLORIDE 0.9% 250ML 250 ML ONE (10:40)
[2020-02-22 12:24] LABS: CALCIUM 8.2 mg/dL (8.4-10.2); CREATININE, SERUM 2.41 mg/dL (0.57-1.11); MAGNESIUM 1.3 MG/DL (1.3-2.1)
--- NOTE | 2020-02-22 13:34 | Progress Note ---
DATE: Pulmonary Critical Care SUBJECTIVE: The patient is having decreased urine output. She received some Lasix last night. She is having some intermittent confusion. PHYSICAL EXAMINATION: VITAL SIGNS: Blood pressure is 110/51, saturation is 100% on 2 L, pulse is 95, and T-max is 100.8. HEENT: Shows no facial swelling or erythema. LYMPHATIC: Shows no submandibular, cervical, or supraclavicular adenopathy. CARDIAC: Reveals regular rate and rhythm with normal S1, S2. LUNGS: Auscultation of lungs reveals some crackles at the bases. There is no wheezing. ABDOMEN: Soft, nontender. There is no rebound or guarding. EXTREMITIES: Shows no leg edema or calf tenderness. LABORATORY DATA: Sodium is 119, and BUN to creatinine ratio is 43 to 2.29. Magnesium is 0.8. The white blood cell count is 24.4 and hemoglobin is 6.8. The platelet count is 220. RADIOGRAPHIC DATA: Chest x-ray shows increased interstitial markings and small left pleural effusion. IMPRESSION: 1. Healthcare-associated pneumonia with sepsis, present on admission. 2. Ukrqt-ri-xdthgtz renal failure. 3. Hyponatremia. 4. Anemia. 5. B-cell lymphoma. 6. Leukocytosis. PLAN: 1. The patient to receive additional Lasix. 2. The patient to receive packed red blood cells today. 3. Await echocardiogram. 4. Continue to monitor sodium. 5. Oncology consultation. 6. Case was discussed with nightshift nursing, dayshift nursing, Internal Medicine, and Oncology. Greater than 35 minutes in direct critical care time. MD LITO Beebe/CLARYL /[id number]
[2020-02-22] MEDS: MIDODRINE HCL 5 MG TABLET PO SCH ×2 (14:51→18:36)
[2020-02-22] MEDS: FUROSEMIDE INJ 100 MG in SODIUM CHLORIDE 0.9% 100 ML 90 ML IV SCH ×2 (15:17→15:19)
--- NOTE | 2020-02-22 15:21 | Consultation ---
DATE OF CONSULTATION: Renal Consultation Thank you, Dr. Kohler, for the consultation. HISTORY OF PRESENT ILLNESS: Ms. Wray is a pleasant 89-year-old female with past medical history significant for prior history of what appears to be congestive heart failure, also prior history of hypertension, diabetes mellitus, and hyperlipidemia, came into the hospital with what appears to be weakness, some shortness of breath. On chest x-ray was found to have evidence of interstitial edema. Sodium was low also on presentation 115, improved to 119 and then 122 appropriately overnight, was briefly given 3% saline, but stopped by me. Last sodium is 122. The patient appears on the slightly volume overload side, but she is starting to produce urine now. She was given 1 unit of packed red blood cells. Blood pressure is still on the low side. Renal consultation has been asked for management of acute kidney injury on chronic kidney disease, hypotension, and hyponatremia. Currently, she is seen in her room. She is not in acute overt respiratory distress, but does have some shortness of breath and is nonoliguric now. No fever. No chills. No nausea. No vomiting. No diarrhea. No abdominal pain. No dysuria, frequency, or urgency of urination at this time. PAST MEDICAL HISTORY: As outlined above. ALLERGIES: TO ERYTHROMYCIN. SOCIAL HISTORY: No tobacco. No alcohol use. FAMILY HISTORY: Noncontributory. REVIEW OF SYSTEMS: See HPI. Otherwise, all systems negative. MEDICATIONS: That she has been on outpatient; allopurinol, amlodipine, glipizide, metformin, losartan/HCTZ, pravastatin, and omeprazole. PHYSICAL EXAMINATION: VITAL SIGNS: Last blood pressure was 87/48, however, blood pressure prior to that was 117/50 while she was receiving blood, 91 pulse, afebrile, and 100% O2 saturations on 2 L nasal cannula. HEENT: No cervical lymphadenopathy. NECK: Supple without masses. No elevated JVD. Moist appearing oral mucosa. SKIN: Moist with good skin turgor. CHEST WALL: Good expansion. No chest wall tenderness. LUNGS: Have rales bilaterally in lung boyce. CARDIOVASCULAR: S1 and S2. No obvious gallop, rub, or murmur. ABDOMEN: Soft. Positive bowel sounds. Nontender. No organomegaly. EXTREMITIES: Evidence of 1+ edema. No clubbing. No cyanosis. NEUROLOGIC: Awake, alert, not completely oriented x3. Grossly otherwise nonfocal exam. LABORATORY WORKUP: Sodium is 122, potassium 4, chloride 95, bicarb 15, BUN 44, creatinine 2.4, phosphorus 4.1, magnesium 1.3, and albumin was 3.5. BNP was elevated at 1994. Chest x-ray showed interstitial pulmonary edema. Sodium on presentation was 115, then improved to 119 and now 122. IMPRESSION AND PLAN: 1. Acute kidney injury on probable chronic kidney disease at baseline, likely does have chronic kidney disease from a history of diabetes mellitus and history of hypertension. Acute kidney injury is likely secondary to hypoperfusion state secondary to low blood pressures from likely shock related to blood loss. The patient's blood pressure has been low. At this time, I would recommend to add vasopressor support in particular either Levophed or dopamine. I would not hydrate the patient rather was favor IV diuresis. She is starting to produce urine after 80 mg of Lasix was given. I will place her on Lasix drip at 5 mg/hour. We will also add low-dose midodrine to help improve her blood pressure. Recommend to transfuse at least 2 units PRBCs to help improve her blood pressure, which will help with renal perfusion pressures as well. Avoid all potential nephrotoxic agents. Avoid LAURA inhibitors, ARBs, nonsteroidal anti-inflammatory drugs, and IV dye. We will hold all blood pressure lowering medications also. a. Suspect acute kidney injury is related to hypoperfusion state leading to prerenal state and prolonged leading to acute tubular necrosis now. b. We will check labs including repeat labs in the morning including basic metabolic panel, mag, phos, CBC, urine electrolytes. I would also check a basic metabolic panel every 4 hours to ensure the sodium is correcting appropriately. c. Renal ultrasound was done. There was no evidence of hydronephrosis. 2. Hypotension. Recommend to add either Levophed or dopamine at low-dose. We will add midodrine as well. We will also leave off all blood pressure lowering medications and make further recommendations. 3. Metabolic acidosis. Suspect secondary to acute and chronic kidney disease, but also could be secondary to fluid overload. We will diurese with Lasix drip and then watch for improvement in the metabolic acidosis. I will also get a venous blood gas to confirm acid-base status if one has not already been done. 4. Hyponatremia, suspect secondary to hypervolemia since the patient does have interstitial edema. The patient was given 3% saline. Sodium was corrected appropriately up to now it has gone up from 115 to 122. We will discontinue 3% saline at this time. I would favor diuresing the patient. Place the patient on Lasix drip. We will check urinalysis, serum osmolality, and urine sodium level stat. Also get a TSH for completeness sake to evaluate for hypothyroidism-associated hyponatremia and we will make further recommendations. a. We will also rule out syndrome of inappropriate antidiuretic hormone secretion in the process. 5. Hypomagnesemia has been replaced. We will recheck the level and we will also replace with another 2 g of magnesium sulfate and make further recommendations. Thank you, Dr. Kohler, for this consultation. Total time spent in this consultation is 40 minutes. Thank you once again for the consult. Calvin Hurd MD /MODL /[id number] cc: Blake Kohler MD
[2020-02-22] MEDS ORDERED: METHYLPREDNISOLONE SOD SUCC 40 MG/ML VIAL 1ML IV NR (16:00)
[2020-02-22 16:11] LABS: BASOPHILS # (AUTO) 0.1 (0.0-0.1); BASOPHILS % 0.2 % (0.0-1.0); EOSINOPHILS # (AUTO) 0.6 (0.0-0.4); EOSINOPHILS % 2.4 % (0.0-6.0); HEMATOCRIT 24.9 % (34.2-44.1); HEMOGLOBIN 8.6 g/dL (12.0-16.0); LYMPHOCYTES # (AUTO) 0.6 (1.0-3.2); LYMPHOCYTES % 2.1 % (18.0-39.1); MEAN CORPUSCULAR HEMOGLOBIN 28.9 pg (28-32); MEAN CORPUSCULAR HGB CONC 34.5 g/dL (31-35); MEAN CORPUSCULAR VOLUME 83.6 fL (81-99); MONOCYTES % 3.5 % (4.4-11.3); NEUTROPHILS # (AUTO) 24.2 (2.1-6.9); NEUTROPHILS % 90.5 % (38.7-80.0); PLATELET COUNT 283 x10e3/uL (140-360); RED BLOOD COUNT 2.98 x10e6/uL (3.6-5.1); RED CELL DISTRIBUTION WIDTH 14.1 % (11.7-14.4)
[2020-02-22 16:32] LABS: ALBUMIN 3.8 g/dL (3.5-5.0); ANION GAP 23.2 mmol/L (8-16); BILIRUBIN,DIRECT 1.2 mg/dL (0.0-0.5); CREATININE, SERUM 2.45 mg/dL (0.57-1.11); MAGNESIUM 2.9 MG/DL (1.3-2.1); PHOSPHORUS 4.8 MG/DL (2.3-4.7); POTASSIUM 4.2 mmol/L (3.5-5.1)
[2020-02-22] MEDS: DEMECLOCYCLINE HCL 300 MG TAB PO SCH (16:55)
[2020-02-22] MEDS: MEROPENEM 500MG/ NS 50ML 50 ML IV SCH (18:36)
--- NOTE | 2020-02-22 18:54 | Diagnostic Imaging Report ---
CT BRAIN WO HISTORY: Confusion, altered mental status COMPARISON: Head CT 06/02/2017 Technique: Noncontrast axial scans were obtained from skull base to the vertex. Coronal and sagittal reconstructions obtained from the axial data. One or more of the following dose reduction techniques were used: Automated exposure control, adjustment of the mA and/or kV according to patient size, and/or utilization of iterative reconstruction technique. DISCUSSION: Scalp/Skull: Unremarkable. Brain sulci: Mildly prominent. Ventricles: Compensatory dilatation. Extra-axial spaces: No masses or fluid collections. Carotid and vertebral artery calcifications are present. Parenchyma: Mild bilateral deep white matter hypodensity is likely chronic microvascular ischemic change. Otherwise, no masses, hemorrhage, or large vascular territory acute infarct. Dural sinuses: No abnormal densities. Sellar/Suprasellar region: Intact. Skull base: Intact. Incidental findings: Bilateral ocular lens replacement. IMPRESSION: 1. No acute intracranial abnormalities. 2. Mild supratentorial chronic microvascular ischemic change. Mild generalized cerebral volume loss. Signed by: Dr. Isidro Humphreys M.D. on 02/22/2020 6:51 PM
--- NOTE | 2020-02-22 19:17 | NUR ---
Per Dr. downing administer 3% hypertonic saline, repeat sodium at 1200. Dr. Michael Moreno gave orders to access portacatheter. report manager accessed Right portacath. Dr. Bueno consulted. Dr. Hurd consulted, office informed of consult. Dr. Hurd gave orders to stop hypertonic saline, check bmp q4 and call with results. gave orders for lasix drip. Speech therapy evaluated patient. Pt worked with physical therapy. Following physical therapy patient was nauseated and dry heaving, HR paced in 130's. Dr. Michael Moreno notified, orders given for ekg and MD came to evaluate patient. PRN zofran administered. Dr. Hurd notified of BMP results. Next BMP at 1999. Patient taken for CT of brain. Report given to Kin EMMANUEL. Addendum: 02/22/20 at 1931 by Alexa Astudillo RN Pt received 1 unit PRBCs during shift. Patient weaned off of levophed drip 30 minutes after bag hung.
[2020-02-22 19:44] LABS: TOTAL PROTEIN, URINE 14.8 mg/dL (1-14)
[2020-02-22 20:36] LABS: ALBUMIN 3.6 g/dL (3.5-5.0); ALBUMIN/GLOBULIN RATIO 1.5 (0.8-2.0); ANION GAP 20.6 mmol/L (8-16); CALCIUM 8.8 mg/dL (8.4-10.2); CREATININE, SERUM 2.58 mg/dL (0.57-1.11); POTASSIUM 4.6 mmol/L (3.5-5.1)
[2020-02-22] MEDS ORDERED: SODIUM BICARBONATE 8.4% 50 ML VIAL IV STA (20:48)
[2020-02-22] MEDS ORDERED: SODIUM BICARBONATE 8.4% SYRING 100 ML ONE (20:57)
[2020-02-23] VITALS (24 sets, daily range): BP systolic 94–144; BP diastolic 51–75
[2020-02-23 00:30] LABS: ANION GAP 21.6 mmol/L (8-16); CALCIUM 8.7 mg/dL (8.4-10.2); CREATININE, SERUM 2.82 mg/dL (0.57-1.11); POTASSIUM 4.6 mmol/L (3.5-5.1)
[2020-02-23] MEDS ORDERED: FUROSEMIDE INJ 10 MG/ML 4 ML VIAL ONE (04:12)
[2020-02-23] MEDS ORDERED: SODIUM CHLORIDE 0.9% 100 ML ONE (04:13)
[2020-02-23] MEDS: FUROSEMIDE INJ 100 MG in SODIUM CHLORIDE 0.9% 100 ML 90 ML IV SCH ×2 (04:47→15:18)
[2020-02-23 04:49] LABS: BASOPHILS % 0.2 % (0.0-1.0); EOSINOPHILS % 0.1 % (0.0-6.0); HEMOGLOBIN 7.6 g/dL (12.0-16.0); LYMPHOCYTES # (AUTO) 0.6 (1.0-3.2); MEAN CORPUSCULAR HEMOGLOBIN 28.3 pg (28-32); MEAN CORPUSCULAR HGB CONC 34.1 g/dL (31-35); MEAN CORPUSCULAR VOLUME 82.9 fL (81-99); MONOCYTES # (AUTO) 0.4 (0.2-0.8); MONOCYTES % 1.9 % (4.4-11.3); NEUTROPHILS # (AUTO) 18.1 (2.1-6.9); NEUTROPHILS % 93.8 % (38.7-80.0); PLATELET COUNT 285 x10e3/uL (140-360); RED BLOOD COUNT 2.69 x10e6/uL (3.6-5.1); RED CELL DISTRIBUTION WIDTH 13.7 % (11.7-14.4)
[2020-02-23 04:51] LABS: HEMATOCRIT 22.3 % (34.2-44.1)
[2020-02-23 05:05] LABS: ALBUMIN 3.4 g/dL (3.5-5.0); ALBUMIN/GLOBULIN RATIO 1.3 (0.8-2.0); ANION GAP 21.4 mmol/L (8-16); CALCIUM 8.9 mg/dL (8.4-10.2); CREATININE, SERUM 2.77 mg/dL (0.57-1.11); POTASSIUM 4.4 mmol/L (3.5-5.1)
[2020-02-23 05:27] LABS: MAGNESIUM 1.9 MG/DL (1.3-2.1); PHOSPHORUS 5.8 MG/DL (2.3-4.7)
--- NOTE | 2020-02-23 06:27 | NUR ---
IM- progress note O/N see below REVIEW OF SYSTEMS: unreliable PHYSICAL EXAMINATION GENERAL: A tired-appearing woman resting in bed. HEENT: Anicteric. Pupils respond to light. CARDIOVASCULAR: Normal S1 and S2. PALPABLE LEFT CHEST PPM. LUNGS: Moderate breath sounds. : BUENO ABDOMEN: Soft, nontender and nondistended. EXTREMITIES: No edema or calf tenderness. NEUROLOGICAL: Alert and oriented times 3. She moves all extremities. SKIN: Dry. PSYCHIATRIC: Normal affect. LABS: Reviewed. MEDICATIONS: Reviewed. A/P: 89yoF: Hyponaremia- rehydrate ALFONSO due to hyponatremia- correct with hypertonic saline Pulmonary edema- fluid changed to hypertonic to reduce volume; IV lasix Pleural effusion- diurese as needed Hypomagnesemia- replace Severe anemia- check panel; stool occult Hypertensive heart ds with Cardiomegaly- amlodipine JOAQUIN- IVF CKD3 due to DM2- hab1c/lipids PHysical deconditioning - PT Prop: IV PPI BID; scd Dispo: check labs; cct>35mins 9-30 WBC improving; Na improving; on demeclocycline; cont bicarbs; cont lasix gtt. cct>35mins MYA MILLARD MD, PHD.
[2020-02-23] MEDS: MEROPENEM 500MG/ NS 50ML 50 ML IV SCH ×2 (06:32→17:06)
[2020-02-23] MEDS: DEMECLOCYCLINE HCL 300 MG TAB PO SCH (06:32)
--- NOTE | 2020-02-23 07:49 | Diagnostic Imaging Report ---
EXAMINATION: CHEST SINGLE (PORTABLE) INDICATION: CHF COMPARISON: Prior day chest x-ray FINDINGS: TUBES and LINES: Right chest port with subclavian central venous catheter component, tip in the low SVC. Left chest wall cardiac device with leads in the right atrium and right ventricle.. LUNGS/PLEURA: Normal lung volumes. Partially obscured left hemidiaphragm and left lower lung haziness. No pneumothorax. Prominent central pulmonary vasculature. HEART AND MEDIASTINUM: Mild cardiomegaly. Aortic calcifications. BONES AND SOFT TISSUES: No acute osseous lesion. Soft tissues are unremarkable. Degenerative changes. UPPER ABDOMEN: No free air under the diaphragm. IMPRESSION: Mild cardiomegaly and pulmonary vascular congestion. Small left pleural effusion. Signed by: Haider Steen DO on 02/23/2020 7:46 AM
[2020-02-23 08:43] LABS: ANION GAP 23.2 mmol/L (8-16); CALCIUM 9.1 mg/dL (8.4-10.2); CREATININE, SERUM 2.79 mg/dL (0.57-1.11); POTASSIUM 4.2 mmol/L (3.5-5.1)
[2020-02-23] MEDS: FERROUS SULFATE 325 MG TAB PO SCH (08:45)
[2020-02-23] MEDS: MULTIVITAMINS/MINERALS TAB PO SCH (08:45)
[2020-02-23] MEDS: SODIUM BICARBONATE 650 MG TAB PO SCH ×3 (08:45→20:12)
[2020-02-23] MEDS: PANTOPRAZOLE 40 MG 10ML VIAL IV SCH ×2 (08:45→17:06)
[2020-02-23] MEDS: MIDODRINE HCL 5 MG TABLET PO SCH ×3 (08:45→16:51)
[2020-02-23] MEDS: PRAVASTATIN 20 MG TAB PO SCH (08:45)
[2020-02-23] MEDS: ALLOPURINOL 100 MG TAB PO SCH (08:45)
[2020-02-23] MEDS: CYANOCOBALAMIN 1,000 MCG TAB PO SCH (08:45)
--- NOTE | 2020-02-23 09:11 | Progress Note ---
DATE: 02/23/2020 Renal Progress Note SUBJECTIVE: Followed for acute kidney injury on chronic kidney disease. The patient's creatinine ab as high as 2.8, now starting to come down around 2.77. The patient's blood pressure is improved overnight. The patient has been on low-dose Levophed, also midodrine which helped improve her blood pressure. Therefore, improved renal perfusion pressures and as a result, the patient has had improved urine output. Bicarb is also improved to 17. The patient is nonoliguric. Says she feels quite a bit better today. Breathing has improved as well. Sodium is improved to 128, corrected for the blood glucose. No nausea, no vomiting. Shortness of breath is improved. OBJECTIVE: VITAL SIGNS: As follows: Blood pressure is 124/63, afebrile, 16 respirations, 96 pulse. LUNGS: Minimal rales at bases. CARDIOVASCULAR: S1, S2. No rub. ABDOMEN: Soft. Positive bowel sounds. Nontender. No organomegaly. EXTREMITIES: No evidence of lower extremity edema. No clubbing. No cyanosis. LABORATORY WORKUP: Sodium today is 126, potassium 4.4, chloride 92, bicarb 17, BUN 56, creatinine 2.77, glucose is 253, calcium is 5.8, phosphorus is 1.9. IMPRESSION AND PLAN: 1. Acute kidney injury on chronic kidney disease, stage 4. The patient likely has had acute kidney injury secondary to decreased renal perfusion pressures from low hemoglobin, hematocrit as well as from low blood pressure leading to prerenal state, possibly ATN. Baseline likely has chronic kidney disease. She is now responding well to Lasix drip. We will continue Lasix drip at 10 mg/hour for now. The patient's overall clinical status is improved. Leave off IV fluids for now. 2. Hypotension. Continue midodrine and continue the low-dose Levophed, can wean off Levophed slowly. 3. Hyponatremia, suspect from hypervolemia, responding well to Lasix drip and improving. We will continue to monitor closely. 4. Metabolic acidosis, combination of acute kidney injury, chronic kidney disease, and volume overload. Continue with Lasix drip. The patient is also getting oral sodium bicarbonate. We will also give the patient another two amps of bicarb IV push. 5. Continue to monitor basic metabolic panel q.4 hours for now, we will continue monitor. MD ANDRIY Rosario/JAYLIN /[id number]
--- NOTE | 2020-02-23 09:11 | Progress Note ---
DATE: SUBJECTIVE: The patient was placed on a Lasix drip yesterday and has had significant diuresis. She has less wheezing and less dyspnea. She still has some intermittent confusion. PHYSICAL EXAMINATION: VITAL SIGNS: Blood pressure is 124/63, saturation is 100% on 2 L, the pulse is 96, respiratory rate is 16. HEENT: Shows no facial swelling or erythema. LYMPHATIC: Shows no submandibular, cervical, or supraclavicular adenopathy. CARDIAC: Reveals regular rate and rhythm with normal S1, S2. LUNGS: Auscultation of lungs reveals crackles and rhonchi at the bases. There is no wheezing. ABDOMEN: Soft and nontender. There is no rebound or guarding. EXTREMITIES: Shows no leg edema or calf tenderness. There is no cyanosis or clubbing. SKIN: Shows no rashes. There is 2+ leg edema. LABORATORY DATA: BUN to creatinine ratio is 56 to 2.77, carbon dioxide is 17 and the chloride is 92. ALT is 60 and AST is 43. Albumin is 3.4. RADIOGRAPHIC DATA: Chest x-ray shows cardiomegaly and some pulmonary vascular congestion. IMPRESSION: 1. Ckiqa-mm-coqevar renal failure. 2. Healthcare-associated pneumonia with sepsis, present on admission. 3. Hyponatremia. 4. Anemia, unspecified. 5. Low-grade B-cell lymphoma. 6. Leukocytosis. PLAN: 1. Continue Lasix drip and monitor electrolytes. 2. Continue current antibiotics and taper based on culture results. 3. Continue oxygen. 4. Out of bed as tolerated. 5. Continue to monitor blood counts. Nitin Moreno MD [facility]/MODL /[id number]
[2020-02-23] MEDS ORDERED: SODIUM BICARBONATE 8.4% INJ 50 ML SYR IV ONE ×2 (09:15→13:30)
[2020-02-23 10:25] LABS: OSMOLALITY,SERUM OSMOMETER 249 mOsmol/kg (280-301)
[2020-02-23 10:55] LABS: LYMPHOCYTES % (MANUAL) 2 % (19-48); MONOCYTES % (MANUAL) 3 % (3.4-9.0); NEUTROPHILS % (MANUAL) 95 % (40-74); PLATELET ESTIMATE ADEQUATE; PLATELET MORPHOLOGY COMMENT RARE EDTA CLUMPING; RBC MORPHOLOGY COMMENT NORMAL
[2020-02-23 12:48] LABS: ANION GAP 21.7 mmol/L (8-16); CALCIUM 7.9 mg/dL (8.4-10.2); CREATININE, SERUM 2.46 mg/dL (0.57-1.11); POTASSIUM 3.7 mmol/L (3.5-5.1)
[2020-02-23] MEDS: ACETAMINOPHEN 325 MG TAB PO PRN (12:50)
[2020-02-23] MEDS ORDERED: POTASSIUM CHLORIDE 20 MEQ TAB CR PO ONE (13:30)
[2020-02-23] MEDS ORDERED: DEXTROSE 50% SYRINGE 50 ML IV PRN (13:30)
[2020-02-23] MEDS: INSULIN REGULAR, HUMAN 100 UNIT/1 ML 3ML VIAL SQ SCH ×3 (15:00→20:12)
[2020-02-23] MEDS ORDERED: POTASSIUM CHLORIDE 20MEQ/100ML 100 ML IV ONE (15:00)
--- NOTE | 2020-02-23 15:02 | NUR ---
Nutrition Intervention Note RD Recommendation(s) for Physician: - Recommend adding 1500 ADA to diet - Recommend Glucerna Shakes TID - Encourage po intake and assist with meals as needed Plan of Care: RD following, monitoring for tolerance and adequacy. Diet and ONS rec's. Nutrition reason for involvement: Nutrition risk screen RD Assessment 02/22: 89 YOM admitted for fever and hyponatremia with recent hx of lymphoma undergoing chemotherapy. Pt assessed today per MST screen. Pt with confusion, unable to obtain nutrition hx at this time. Pt appears well nourished. Hyponatremia improving, off Levophed. Pt with poor intake since admit, with episode of dry heaving while working with PT. Chart reviewed. Rec's provided. Will continue to monitor. Principal Problems/Diagnoses: fever, hyponatremia, leukocytosis, lymphoma PMH: B cell lymphoma, DM, HTN, diabetic neuropathy, gout, anemia, chronic renal insufficiency GI: abd soft, NT Skin: intact Labs: 02/22: Na 126, K 4.2, BUN 58, Cr 2.79, Gluc 254, Ca 9.1, Phos 5.8, Mg 1.9 Meds: protonix, pravastatin, feosol, vitamin B12, Na bicarb, MVI with minerals, allopurinol, abx, zofran Ht: 65 in Wt: 221 lb BMI: 36.8 kg/m2 IBW: 125 lb Malnutrition Evaluation (02/23/20) The patient does not meet criteria for a specified degree of malnutrition at this time. Will re-evaluate at follow-up as appropriate. Energy intake: ITZ Weight loss: ITZ Fat loss: none observed, ample skinfold thickness Muscle loss: none observed, shoulder round Supporting Evidence: Fluid accumulation: none Functional Status: unable to evaluate Nutrition Prescription (Diet Order): Cardiac, mechanical soft Estimated Nutritional Needs: 3835-3252 calories/day (22-25 kcal/kg IBW) 85-114 g protein/day (1.5-2 g pro/kg IBW) Diet Adequacy: Not meeting calorie needs, Not meeting protein needs Diet Tolerance: Diet Education Needs Assessment: Diet education not indicated. Nutrition Care Level: moderate Nutrition Diagnosis: Inadequate energy and protein intake related to current condition as evidenced by poor po intake and not meeting needs. Goal: Patient will meet 75-100% of estimated needs by follow up Progress: N/A Interventions: - Fat, mineral, texture modified diet, Commercial beverage, Recommended Modifications, Multivitamin/mineral supplement therapy, Collaboration with other providers Monitoring/Evaluation: - Total energy intake, Total protein intake, Modified diet, Liquid supplement, Weight change Signed: Jewell Gómez RD, LD, [facility]
--- NOTE | 2020-02-23 19:00 | NUR ---
Report received from La Kraft RN.
[2020-02-24] VITALS (19 sets, daily range): BP systolic 105–143; BP diastolic 45–71
--- NOTE | 2020-02-24 06:22 | NUR ---
IM- progress note O/N see below REVIEW OF SYSTEMS: unreliable PHYSICAL EXAMINATION GENERAL: A tired-appearing woman resting in bed. HEENT: Anicteric. Pupils respond to light. CARDIOVASCULAR: Normal S1 and S2. PALPABLE LEFT CHEST PPM. LUNGS: Moderate breath sounds. : BUENO ABDOMEN: Soft, nontender and nondistended. EXTREMITIES: No edema or calf tenderness. NEUROLOGICAL: Alert and oriented times 3. She moves all extremities. SKIN: Dry. PSYCHIATRIC: Normal affect. LABS: Reviewed. MEDICATIONS: Reviewed. A/P: 89yoF: Hyponaremia- rehydrate ALFONSO due to hyponatremia- correct with hypertonic saline Pulmonary edema- fluid changed to hypertonic to reduce volume; IV lasix Pleural effusion- diurese as needed Hypomagnesemia- replace Severe anemia- check panel; stool occult Hypertensive heart ds with Cardiomegaly- amlodipine JOAQUIN- IVF CKD3 due to DM2- hab1c/lipids PHysical deconditioning - PT Prop: IV PPI BID; scd Dispo: check labs; cct>35mins 9-30 WBC improving; Na improving; on demeclocycline; cont bicarbs; cont lasix gtt. cct>35mins 10-1 check labs; improving; pressor off; lasix gtt remains; I/O [id number] MYA MILLARD MD, PHD.
[2020-02-24] MEDS: MEROPENEM 500MG/ NS 50ML 50 ML IV SCH ×2 (06:29→18:16)
[2020-02-24 07:06] LABS: BASOPHILS # (AUTO) 0.1 (0.0-0.1); BASOPHILS % 0.3 % (0.0-1.0); EOSINOPHILS # (AUTO) 0.1 (0.0-0.4); EOSINOPHILS % 0.8 % (0.0-6.0); HEMATOCRIT 23.7 % (34.2-44.1); HEMOGLOBIN 8.3 g/dL (12.0-16.0); LYMPHOCYTES # (AUTO) 0.5 (1.0-3.2); MEAN CORPUSCULAR HEMOGLOBIN 28.6 pg (28-32); MEAN CORPUSCULAR VOLUME 81.7 fL (81-99); MONOCYTES # (AUTO) 0.7 (0.2-0.8); MONOCYTES % 4.3 % (4.4-11.3); NEUTROPHILS # (AUTO) 15.2 (2.1-6.9); NEUTROPHILS % 90.9 % (38.7-80.0); PLATELET COUNT 349 x10e3/uL (140-360); RED CELL DISTRIBUTION WIDTH 13.7 % (11.7-14.4)
[2020-02-24 07:26] LABS: ALBUMIN 3.6 g/dL (3.5-5.0); ALBUMIN/GLOBULIN RATIO 1.3 (0.8-2.0); ANION GAP 18.8 mmol/L (8-16); CALCIUM 9.5 mg/dL (8.4-10.2); CREATININE, SERUM 2.52 mg/dL (0.57-1.11); MAGNESIUM 1.8 MG/DL (1.3-2.1); PHOSPHORUS 4.3 MG/DL (2.3-4.7); POTASSIUM 3.8 mmol/L (3.5-5.1)
[2020-02-24] MEDS: INSULIN REGULAR, HUMAN 100 UNIT/1 ML 3ML VIAL SQ SCH ×3 (07:30→20:59)
[2020-02-24] MEDS: FERROUS SULFATE 325 MG TAB PO SCH (07:54)
[2020-02-24] MEDS: MULTIVITAMINS/MINERALS TAB PO SCH (07:54)
[2020-02-24] MEDS: MIDODRINE HCL 5 MG TABLET PO SCH ×3 (07:54→17:57)
[2020-02-24] MEDS: PRAVASTATIN 20 MG TAB PO SCH (07:55)
[2020-02-24] MEDS: ALLOPURINOL 100 MG TAB PO SCH (07:55)
[2020-02-24] MEDS: CYANOCOBALAMIN 1,000 MCG TAB PO SCH (07:55)
[2020-02-24] MEDS: SODIUM BICARBONATE 650 MG TAB PO SCH ×3 (08:10→20:59)
[2020-02-24] MEDS: PANTOPRAZOLE 40 MG 10ML VIAL IV SCH ×2 (09:13→18:10)
--- NOTE | 2020-02-24 09:55 | Progress Note ---
DATE: SUBJECTIVE: The patient still has some confusion, but is conversing appropriately. Her mood is improved. The patient is afebrile. She is n.p.o. after her initial swallowing evaluation yesterday. PHYSICAL EXAMINATION: VITAL SIGNS: Blood pressure is 121/57, saturation is 93% on 2 L, and pulse is 91. HEENT: Shows no facial swelling or erythema. LYMPHATIC: Shows no submandibular, cervical, or supraclavicular adenopathy. CARDIAC: Reveals regular rate and rhythm. Normal S1, S2. LUNGS: Auscultation of lungs reveals crackles at bases. There is no wheezing. ABDOMEN: Soft, nontender. There is no rebound or guarding. EXTREMITIES: Shows no leg edema or calf tenderness. There is no cyanosis or clubbing. SKIN: Shows no rashes. NEUROLOGIC: Shows no focal abnormalities. LABORATORY DATA: White blood cell count is 16.7, hemoglobin is 8.3, and platelet count is 349. The ZMO-np-cvikxktrxw ratio is 63 to 2.52 and the other electrolytes are within normal limits. IMPRESSION: 1. Aspiration pneumonia with sepsis present on admission. 2. Ljpoq-lu-nuumblx renal failure. 3. Oropharyngeal dysphagia with recurrent aspiration. 4. Hyponatremia. 5. Anemia, unspecified. 6. Low-grade B-cell lymphoma with recent chemotherapy. 7. Metabolic encephalopathy. 8. Acute diastolic heart failure. 9. Hypertensive heart disease. PLAN: 1. The patient to have modified barium swallow today. 2. Continue speech therapy and physical therapy. 3. Continue meropenem for one more day. We will then deescalate her antibiotics tomorrow. 4. Continue to monitor renal function. 5. Continue Lasix drip until changed by Nephrology. 6. Taper supplemental bicarbonate. 7. Transfer to Med/Surg. MD LITO Beebe/MODL /[id number]
--- NOTE | 2020-02-24 10:45 | Progress Note ---
DATE: 02/24/2020 Renal Progress Note SUBJECTIVE: Followed for acute kidney injury on chronic kidney disease stage 4. BUN and creatinine appears to be stabilized. The patient is at stage 4 CKD. The patient's urine output has improved significantly. Sodium is also better at 132. Bicarb is also better 26. No nausea, no vomiting, no shortness of breath. OBJECTIVE: VITAL SIGNS: Have been noted and are stable. Blood pressure is 105/48. The patient is not on Levophed. 86 pulse, afebrile. LUNGS: Mostly clear to auscultation with minimal rales at the bases bilaterally. CARDIOVASCULAR: S1, S2. No rub. ABDOMEN: Soft. Positive bowel sounds. EXTREMITIES: No edema of the lower extremities. LABORATORY DATA: Sodium 132, potassium 3.8, BUN is 62 and creatinine is 2.52. IMPRESSION AND PLAN: 1. Acute kidney on chronic kidney disease stage 4, appears to be at her baseline. Chronic kidney disease stage 4. We will decrease Lasix drip to 5 mg/hour, eventually stop it and convert over to scheduled Lasix IV orally. The patient's sodium is also improving. Overall fluid overload has largely improved. 2. Hypertension. off Levophed. We will continue low-dose midodrine, can slowly wean it off once the blood pressure started to improve. 3. Hyponatremia from hypervolemia, improving with IV diuresis with Lasix. We will decrease Lasix dose done 5 mg prior, eventually wean it off. 4. Congestive heart failure exacerbation. Continue IV Lasix with decrease to 5 mg/hour and then she can slowly wean it off and switch to oral or IV scheduled Lasix intermittent dosing. Calvin Hurd MD TH/MODL /[id number]
[2020-02-24 10:59] LABS: BAND NEUTROPHILS % (MANUAL) 2 %; LYMPHOCYTES % (MANUAL) 1 % (19-48); MONOCYTES % (MANUAL) 2 % (3.4-9.0); NEUTROPHILS % (MANUAL) 95 % (40-74)
[2020-02-24 11:00] LABS: PLATELET ESTIMATE ADEQUATE; PLATELET MORPHOLOGY COMMENT NORMAL; RBC MORPHOLOGY COMMENT NORMAL
--- NOTE | 2020-02-24 11:16 | NUR ---
SPOKE WITH DAUGHTER NORMA SOLARES CHOICE FOR [facility], EDUCATED ABOUT IMM, FILED IN CHART , COMPLETED RTF, PASRR AND COVID FORM FAXED TO [facility]. PENDING AUTH.
[2020-02-24] MEDS: FUROSEMIDE INJ 100 MG in SODIUM CHLORIDE 0.9% 100 ML 90 ML IV SCH ×4 (11:18→20:15)
--- NOTE | 2020-02-24 14:57 | Diagnostic Imaging Report ---
Modified barium swallow exam with speech pathology service CLINICAL HISTORY: Concern for aspiration. History of neuropathy and B-cell lymphoma status post chemotherapy initiation Fluoro Time: 2.6 min. Dose: 16.2 mGy IMPRESSION: Please see the speech pathology service report for details. Barium contrast of multiple consistencies is given to the patient to swallow. Fluoroscopic observation is performed during swallowing. No aspiration or penetration is noted throughout the examination. Trace pharyngeal and vallecular residue is noted with thin liquids. Signed by: Cirilo Puentes MD on 02/24/2020 2:53 PM
--- NOTE | 2020-02-24 15:00 | NUR ---
Report given to Radha EMMANUEL. Patient transferred to [facility] at this time, AAOx3, resp even and unlabored, no s/s pain nor distress noted. Patient family members made aware, no questions noted at this time.
--- NOTE | 2020-02-24 19:00 | NUR ---
Resumed care of patient. Patient awake and resting in bed, no s/s of distress at this time. Arango catheter patent and draining clear yellow urine to gravity. Bed locked and in lowest position, side rails upx3, alarm on, call light placed within reach. Patient instructed to call for assistance if needed, verbalized understanding.
--- NOTE | 2020-02-24 22:15 | NUR ---
Spoke with daughter Mimi on phone and provided updates on patient's status as requested.
[2020-02-25] VITALS (9 sets, daily range): BP systolic 80–101; BP diastolic 39–64
[2020-02-25] MEDS: MEROPENEM 500MG/ NS 50ML 50 ML IV SCH ×2 (05:04→18:17)
[2020-02-25 05:26] LABS: BASOPHILS % 0.2 % (0.0-1.0); EOSINOPHILS # (AUTO) 0.3 (0.0-0.4); EOSINOPHILS % 2.4 % (0.0-6.0); HEMATOCRIT 23.3 % (34.2-44.1); LYMPHOCYTES # (AUTO) 0.3 (1.0-3.2); LYMPHOCYTES % 2.2 % (18.0-39.1); MEAN CORPUSCULAR HEMOGLOBIN 30.1 pg (28-32); MEAN CORPUSCULAR HGB CONC 34.3 g/dL (31-35); MEAN CORPUSCULAR VOLUME 87.6 fL (81-99); MONOCYTES # (AUTO) 0.5 (0.2-0.8); MONOCYTES % 3.4 % (4.4-11.3); NEUTROPHILS # (AUTO) 12.8 (2.1-6.9); NEUTROPHILS % 89.8 % (38.7-80.0); PLATELET COUNT 299 x10e3/uL (140-360); RED BLOOD COUNT 2.66 x10e6/uL (3.6-5.1)
[2020-02-25 05:47] LABS: ALBUMIN 3.4 g/dL (3.5-5.0); ALBUMIN/GLOBULIN RATIO 1.4 (0.8-2.0); ANION GAP 19.7 mmol/L (8-16); CALCIUM 9.1 mg/dL (8.4-10.2); CREATININE, SERUM 2.81 mg/dL (0.57-1.11); POTASSIUM 3.7 mmol/L (3.5-5.1)
[2020-02-25 06:02] LABS: MAGNESIUM 1.5 MG/DL (1.3-2.1); PHOSPHORUS 4.1 MG/DL (2.3-4.7)
--- NOTE | 2020-02-25 07:00 | NUR ---
Bedside report given to oncoming nurse. Patient awake and resting in bed, respirations even and unlabored, no s/s of distress at this time. All safety measures in place.
[2020-02-25] MEDS: INSULIN REGULAR, HUMAN 100 UNIT/1 ML 3ML VIAL SQ SCH ×4 (07:30→21:27)
--- NOTE | 2020-02-25 07:40 | NUR ---
PATIENT IN BED RESTING WITH NO S/S OF DISTRESS. DENIED PAIN AT THIS TIME. IV LASIX IN PROGRESS. BED IN LOWER POSITION, CALL LIGHT AT REACH.
--- NOTE | 2020-02-25 07:47 | NUR ---
PATIENT NOTED WITH B/P OF 80/41, B/P RECHECKED WITH THE READING OF 95/64. WILL CLOSELY MONITOR.
--- NOTE | 2020-02-25 08:07 | NUR ---
IM- progress note O/N see below REVIEW OF SYSTEMS: unreliable PHYSICAL EXAMINATION GENERAL: A tired-appearing woman resting in bed. HEENT: Anicteric. Pupils respond to light. CARDIOVASCULAR: Normal S1 and S2. PALPABLE LEFT CHEST PPM. LUNGS: Moderate breath sounds. : BUENO ABDOMEN: Soft, nontender and nondistended. EXTREMITIES: No edema or calf tenderness. NEUROLOGICAL: Alert and oriented times 3. She moves all extremities. SKIN: Dry. PSYCHIATRIC: Normal affect. LABS: Reviewed. MEDICATIONS: Reviewed. A/P: 89yoF: Hyponaremia- rehydrate ALFONSO due to hyponatremia- correct with hypertonic saline Pulmonary edema- fluid changed to hypertonic to reduce volume; IV lasix Pleural effusion- diurese as needed Hypomagnesemia- replace Severe anemia- check panel; stool occult Hypertensive heart ds with Cardiomegaly- amlodipine JOAQUIN- IVF CKD3 due to DM2- hab1c/lipids PHysical deconditioning - PT Prop: IV PPI BID; scd Dispo: check labs; cct>35mins 9-30 WBC improving; Na improving; on demeclocycline; cont bicarbs; cont lasix gtt. cct>35mins 10-1 check labs; improving; pressor off; lasix gtt remains; I/O 916/4050 10-2 Possible silent aspirations. BLood counts essential unchanged. MYA MILLARD MD, PHD.
[2020-02-25] MEDS: MIDODRINE HCL 5 MG TABLET PO SCH ×3 (08:30→17:21)
[2020-02-25] MEDS: PANTOPRAZOLE 40 MG 10ML VIAL IV SCH ×2 (09:25→17:20)
[2020-02-25] MEDS: MULTIVITAMINS/MINERALS TAB PO SCH (09:26)
[2020-02-25] MEDS: CYANOCOBALAMIN 1,000 MCG TAB PO SCH (09:26)
[2020-02-25] MEDS: FERROUS SULFATE 325 MG TAB PO SCH (09:26)
[2020-02-25] MEDS: ALLOPURINOL 100 MG TAB PO SCH (09:26)
[2020-02-25] MEDS: PRAVASTATIN 20 MG TAB PO SCH (09:26)
--- NOTE | 2020-02-25 10:17 | NUR ---
[facility] FACILITY DISCHARGE INFORMATION PATIENT HAS BEEN ACCEPTED TO: [facility] NAME:[facility] ADDRESS:[id number] [facility] ACCEPTING SENIOR DIRECTOR CREATIVE SERVICES:CHET LI MD:VENICE ROOM:104 NURSE CALL REPORT TO: [phone] IMM SIGNED AND OBTAINED (if applicable): IMM THE FOLLOWING DOCUMENTS MUST ACCOMPANY PATIENT FOR TRANSFER: COPIED CHART:PACKET
--- NOTE | 2020-02-25 10:51 | Progress Note ---
DATE: 02/25/2020 Renal Progress Note SUBJECTIVE: Followed for acute kidney injury on chronic kidney disease, stage 4. The patient's overall CHF exacerbation has improved significantly. Sodium is also better at 133. No nausea. No vomiting. No shortness of breath. BUN and creatinine have slightly risen. The patient's blood pressures have been dropping also. OBJECTIVE: VITAL SIGNS: Have been noted. Last blood pressure was 95/64, 97 pulse, afebrile. LUNGS: Clear to auscultation bilaterally. CARDIOVASCULAR: S1 and S2. No rub. ABDOMEN: Soft. Positive bowel sounds. EXTREMITIES: No edema. LABORATORY DATA: Reviewed. Sodium is up to 133, BUN is 65, creatinine is 2.81, and potassium is 3.7. IMPRESSION AND PLAN: 1. Acute kidney injury on chronic kidney disease, stage 4. The patient overall clinically she has improved from her congestive heart failure exacerbation. We will discontinue IV Lasix drip. Rise in BUN and creatinine probably is related to prerenal state developing as a result of the diuresis. We will discontinue the IV Lasix drip. Likely, we will place on intermittent Lasix dosing in the next 24 to 48 hours. 2. Hypotension. Continue the midodrine. We will discontinue the Lasix drip. 3. Hyponatremia has improved significantly. We will continue to monitor off Lasix drip and likely, we will change to p.o. or intermittent IV Lasix in the next 24 to 48 hours. Calvin Hurd MD /MODL /[id number] cc: Blake Kohler MD
--- NOTE | 2020-02-25 11:33 | NUR ---
PATIENT AMBULATED IN HALLWAY WITH PHYSICAL THERAPY, BACK IN BED WITH CALL LIGHT AT REACH.
--- NOTE | 2020-02-25 16:25 | NUR ---
SPOKE WITH MD REGARDING PATIENT NOT PRODUCING URINE AFTER THE LASIX DRIP WAS DISCONTINUED. NEW ORDERS RECEIVED.
[2020-02-25] MEDS ORDERED: SODIUM CHLORIDE 0.9% 250ML 250 ML IV ONE (16:30)
--- NOTE | 2020-02-25 16:50 | NUR ---
SPOKE WITH MD REGARDING LOW B/P, NEW ORDER RECEIVED FOR 250CC IV FLUID BOLUS.
--- NOTE | 2020-02-25 19:00 | NUR ---
Resumed care of patient. Patient resting quietly in bed, respirations even and unlabored on room air, no s/s of distress at this time. Arango catheter patent and draining to gravity. All safety measures in place.
[2020-02-25] MEDS ORDERED: FUROSEMIDE INJ 10 MG/ML 4 ML VIAL IV ONE (19:30)
[2020-02-25] MEDS: ACETAMINOPHEN 325 MG TAB PO PRN (21:28)
[2020-02-26] VITALS (7 sets, daily range): BP systolic 104–127; BP diastolic 52–87
[2020-02-26] MEDS: MEROPENEM 500MG/ NS 50ML 50 ML IV SCH ×2 (05:24→18:00)
[2020-02-26 05:36] LABS: BASOPHILS % 0.2 % (0.0-1.0); EOSINOPHILS # (AUTO) 0.3 (0.0-0.4); EOSINOPHILS % 1.4 % (0.0-6.0); LYMPHOCYTES # (AUTO) 0.2 (1.0-3.2); MEAN CORPUSCULAR HGB CONC 33.3 g/dL (31-35); MONOCYTES # (AUTO) 0.2 (0.2-0.8); MONOCYTES % 1.3 % (4.4-11.3); NEUTROPHILS # (AUTO) 17.9 (2.1-6.9); NEUTROPHILS % 95.1 % (38.7-80.0); PLATELET COUNT 289 x10e3/uL (140-360); RED BLOOD COUNT 2.76 x10e6/uL (3.6-5.1)
[2020-02-26 06:15] LABS: ALBUMIN 2.4 g/dL (3.5-5.0); ALBUMIN/GLOBULIN RATIO 0.6 (0.8-2.0); ANION GAP 20.7 mmol/L (8-16); CALCIUM 9.1 mg/dL (8.4-10.2); CREATININE, SERUM 3.89 mg/dL (0.57-1.11); MAGNESIUM 1.6 MG/DL (1.3-2.1); PHOSPHORUS 4.7 MG/DL (2.3-4.7); POTASSIUM 3.7 mmol/L (3.5-5.1)
--- NOTE | 2020-02-26 07:15 | NUR ---
PATIENT IN BED RESTING WITH EYES CLOSED, NO DISTRESS NOTED. BUENO CATHETER DRAINING CLEAR YELLOW URINE. BED IN LOWER POSITION AND LOCKED. CALL LIGHT AT REACH.
--- NOTE | 2020-02-26 07:18 | NUR ---
IM- progress note O/N see below REVIEW OF SYSTEMS: unreliable PHYSICAL EXAMINATION GENERAL: A tired-appearing woman resting in bed. HEENT: Anicteric. Pupils respond to light. CARDIOVASCULAR: Normal S1 and S2. PALPABLE LEFT CHEST PPM. LUNGS: Moderate breath sounds. : BUENO ABDOMEN: Soft, nontender and nondistended. EXTREMITIES: No edema or calf tenderness. NEUROLOGICAL: Alert and oriented times 3. She moves all extremities. SKIN: Dry. PSYCHIATRIC: Normal affect. LABS: Reviewed. MEDICATIONS: Reviewed. A/P: 89yoF: Hyponaremia- rehydrate ALFONSO due to hyponatremia- correct with hypertonic saline Pulmonary edema- fluid changed to hypertonic to reduce volume; IV lasix Pleural effusion- diurese as needed Hypomagnesemia- replace Severe anemia- check panel; stool occult Hypertensive heart ds with Cardiomegaly- amlodipine JOAQUIN- IVF CKD4 due to DM2- hab1c/lipids PHysical deconditioning - PT Prop: IV PPI BID; scd Dispo: check labs; cct>35mins 9-30 WBC improving; Na improving; on demeclocycline; cont bicarbs; cont lasix gtt. cct>35mins 10-1 check labs; improving; pressor off; lasix gtt remains; I/O 916/4050 10-2 Possible silent aspirations. BLood counts essential unchanged. 10-3 worsened LFTs. 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 MYA MILLARD MD, PHD.
[2020-02-26] MEDS: INSULIN REGULAR, HUMAN 100 UNIT/1 ML 3ML VIAL SQ SCH ×3 (07:30→20:45)
[2020-02-26] MEDS: MIDODRINE HCL 5 MG TABLET PO SCH ×3 (08:00→18:00)
--- NOTE | 2020-02-26 08:02 | Diagnostic Imaging Report ---
EXAMINATION: CHEST SINGLE (PORTABLE) INDICATION: ^chf ^[id number] ^[id number] COMPARISON: 02/23/2020 FINDINGS: AP view TUBES and LINES: Stable 2-lead pacemaker device overlying the left upper chest with leads overlying the right atrial appendage and right ventricle. Right-sided chest port with tip overlying the upper SVC. Needle is in the port. LUNGS: Lungs are well inflated. Unchanged bilateral interstitial edema. Bibasilar atelectasis, stable. PLEURA: Small left pleural effusion, unchanged. No pneumothorax. HEART AND MEDIASTINUM: Cardiac size is mildly enlarged. Moderate calcifications of the aortic arch. BONES AND SOFT TISSUES: Multilevel degenerative changes of the thoracic spine. Soft tissues are unremarkable. UPPER ABDOMEN: No free air under the diaphragm. IMPRESSION: Stable mild cardiomegaly with associated bilateral interstitial edema and small left pleural effusion. Signed by: Dr. Bettie Mckeon M.D. on 02/26/2020 7:59 AM
[2020-02-26 08:17] LABS: BAND NEUTROPHILS % (MANUAL) 2 %; MONOCYTES % (MANUAL) 2 % (3.4-9.0); NEUTROPHILS % (MANUAL) 96 % (40-74); PLATELET ESTIMATE ADEQUATE; PLATELET MORPHOLOGY COMMENT NORMAL; RBC MORPHOLOGY COMMENT NORMAL
[2020-02-26] MEDS ORDERED: FUROSEMIDE INJ 10 MG/ML 4 ML VIAL IV SCH (09:00)
[2020-02-26] MEDS: PRAVASTATIN 20 MG TAB PO SCH (09:13)
[2020-02-26] MEDS: FERROUS SULFATE 325 MG TAB PO SCH (09:13)
[2020-02-26] MEDS: PANTOPRAZOLE 40 MG 10ML VIAL IV SCH ×2 (09:13→17:31)
[2020-02-26] MEDS: MULTIVITAMINS/MINERALS TAB PO SCH (09:13)
[2020-02-26] MEDS: ALLOPURINOL 100 MG TAB PO SCH (09:14)
[2020-02-26] MEDS: CYANOCOBALAMIN 1,000 MCG TAB PO SCH (09:14)
[2020-02-26] MEDS ORDERED: FUROSEMIDE INJ 100 MG in SODIUM CHLORIDE 0.9% 100 ML 90 ML IV SCH (14:30)
--- NOTE | 2020-02-26 14:47 | Progress Note ---
DATE: SUBJECTIVE: The patient is still having some confusion. She does not have fevers. PHYSICAL EXAMINATION: VITAL SIGNS: Blood pressure is 107/52, saturation is 96%, pulse is 95, respiratory rate is 16. HEENT: No facial swelling or erythema. LYMPHATIC: No submandibular, cervical, or supraclavicular adenopathy. CARDIAC: Regular rate and rhythm with normal S1 and S2. LUNGS: Auscultation of the lungs shows decreased breath sounds at the bases. There is no wheezing. ABDOMEN: Soft, nontender. There is no rebound or guarding. LABORATORY DATA: White blood cell count is 18.8 and hemoglobin is 8. The platelet count is 298,000. The BUN to creatinine ratio 70 to 3.89. The other electrolytes are within normal limits and the albumin are 2.4. RADIOGRAPHIC DATA: There is still some bilateral edema. IMPRESSION: 1. Aspiration pneumonia with sepsis, present on admission. 2. Acute on chronic renal failure with worsening renal function. 3. Oropharyngeal dysphagia with recurrent aspiration. 4. Hyponatremia. 5. Anemia, unspecified. 6. Low-grade B-cell lymphoma with recent chemotherapy. 7. Metabolic encephalopathy. 8. Acute diastolic heart failure, present on admission. 9. Hypertensive heart disease, present on admission. 10. Hypertension. PLAN: 1. Continue to monitor creatinine. Await further recommendations from Nephrology. 2. Continue speech therapy. 3. Complete antibiotics. 4. Physical therapy. 5. Continue to monitor and control blood sugars. Nitin Moreno MD LM/JAYLIN /[id number]
--- NOTE | 2020-02-26 15:25 | NUR ---
IMM LETTER DISCUSSED WITH PT'S DAUGHTER SUZIE- [id number] OVER THE PHONE, COPY IS LEFT IN PT'S ROOM , DTR MADE AWARE, COPY IS PLACED IN PT'S CHART.
--- NOTE | 2020-02-26 15:47 | NUR ---
MD IN TO SEE PATIENT, NEW ORDER RECEIVED.
[2020-02-27 00:33] VITALS: BP 103/65
[2020-02-27] MEDS: MEROPENEM 500MG/ NS 50ML 50 ML IV SCH ×2 (05:31→18:00)
[2020-02-27 05:39] VITALS: BP 101/44
--- NOTE | 2020-02-27 06:10 | NUR ---
IM- progress note O/N see below REVIEW OF SYSTEMS: unreliable PHYSICAL EXAMINATION GENERAL: A tired-appearing woman resting in bed. HEENT: Anicteric. Pupils respond to light. CARDIOVASCULAR: Normal S1 and S2. PALPABLE LEFT CHEST PPM. LUNGS: Moderate breath sounds. : BUENO ABDOMEN: Soft, nontender and nondistended. EXTREMITIES: No edema or calf tenderness. NEUROLOGICAL: Alert and oriented times 3. She moves all extremities. SKIN: Dry. PSYCHIATRIC: Normal affect. LABS: Reviewed. MEDICATIONS: Reviewed. 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 cct>35mins 10-1 check labs; improving; pressor off; lasix gtt remains; I/O 916/4050 10-2 Possible silent aspirations. BLood counts essential unchanged. 10-3 worsened LFTs. 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 10-4 Renal fn fluctuates from 11 to 16; appears stable; Remains oliguric; will need monitoring here by nephrology; may progress to HD, no urgent need at this time. 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 D#09/29 Rosita MILLARD MD, PHD.
[2020-02-27 06:43] LABS: BASOPHILS % 0.2 % (0.0-1.0); EOSINOPHILS # (AUTO) 0.4 (0.0-0.4); HEMATOCRIT 23.1 % (34.2-44.1); HEMOGLOBIN 7.8 g/dL (12.0-16.0); LYMPHOCYTES # (AUTO) 0.1 (1.0-3.2); LYMPHOCYTES % 0.5 % (18.0-39.1); MEAN CORPUSCULAR HEMOGLOBIN 28.9 pg (28-32); MEAN CORPUSCULAR HGB CONC 33.8 g/dL (31-35); MEAN CORPUSCULAR VOLUME 85.6 fL (81-99); MONOCYTES # (AUTO) 0.2 (0.2-0.8); MONOCYTES % 0.9 % (4.4-11.3); NEUTROPHILS # (AUTO) 17.3 (2.1-6.9); NEUTROPHILS % 93.4 % (38.7-80.0); PLATELET COUNT 266 x10e3/uL (140-360); RED CELL DISTRIBUTION WIDTH 13.8 % (11.7-14.4)
[2020-02-27 07:15] LABS: ALBUMIN 2.1 g/dL (3.5-5.0); ALBUMIN/GLOBULIN RATIO 0.6 (0.8-2.0); ANION GAP 19.8 mmol/L (8-16); CALCIUM 8.8 mg/dL (8.4-10.2); CREATININE, SERUM 4.12 mg/dL (0.57-1.11); MAGNESIUM 1.6 MG/DL (1.3-2.1); PHOSPHORUS 4.9 MG/DL (2.3-4.7); POTASSIUM 3.8 mmol/L (3.5-5.1)
--- NOTE | 2020-02-27 07:18 | NUR ---
PATIENT IN BED RESTING WITH NO S/S OF DISTRESS. LASIX DRIP IN PROGRESS. BED IN LOWER POSITION, CALL LIGHT AT REACH.
[2020-02-27 07:24] LABS: BAND NEUTROPHILS % (MANUAL) 19 %; EOSINOPHILS % (MANUAL) 3 % (0-7); MONOCYTES % (MANUAL) 1 % (3.4-9.0); NEUTROPHILS % (MANUAL) 77 % (40-74)
[2020-02-27 07:25] LABS: PLATELET ESTIMATE ADEQUATE; PLATELET MORPHOLOGY COMMENT NORMAL; RBC MORPHOLOGY COMMENT NORMAL
[2020-02-27] MEDS: INSULIN REGULAR, HUMAN 100 UNIT/1 ML 3ML VIAL SQ SCH ×4 (07:30→21:00)
[2020-02-27 07:45] VITALS: BP 116/55
[2020-02-27] MEDS: MIDODRINE HCL 5 MG TABLET PO SCH ×3 (08:30→17:30)
[2020-02-27] MEDS: MULTIVITAMINS/MINERALS TAB PO SCH (09:13)
[2020-02-27] MEDS: FERROUS SULFATE 325 MG TAB PO SCH (09:13)
[2020-02-27] MEDS: PANTOPRAZOLE 40 MG 10ML VIAL IV SCH ×2 (09:13→17:30)
[2020-02-27] MEDS: ALLOPURINOL 100 MG TAB PO SCH (09:13)
[2020-02-27] MEDS: CYANOCOBALAMIN 1,000 MCG TAB PO SCH (09:13)
[2020-02-27] MEDS: PRAVASTATIN 20 MG TAB PO SCH (09:13)
--- NOTE | 2020-02-27 11:04 | NUR ---
CHEMICAL ANALYST IN TO SEE PATIENT, NO NEW ORDER RECEIVED.
[2020-02-27] MEDS ORDERED: SODIUM CHLORIDE 0.9% 250ML 250 ML IV ONE (11:30)
[2020-02-27 13:00] VITALS: BP 106/58
[2020-02-27] MEDS: SODIUM CHLORIDE 0.9% 1000ML 1,000 ML IV SCH (13:00)
--- NOTE | 2020-02-27 13:21 | Progress Note ---
DATE: 02/27/2020 SUBJECTIVE: The patient is recovering, still leukemoid with white count of 18,470; however, the hemoglobin has dropped down to 7.8 and platelets are okay 266,000. Sodium is 129, potassium 3.8, chloride 89, CO2 of 24, BUN and creatinine are high at 92 and 4.12. If the patient gets the dialysis, I will give her blood transfusion. The patient is in congestive heart failure with BNP being 2373. The patient had modified barium swallow, there was no aspiration. The patient had a chest x-ray, which had shown stable cardiomegaly with interstitial edema and left-sided pleural effusion. The consultants on the case are 1. Nitin Moreno M.D., he is a [employer] special agent. 2. Calvin Hurd M.D., christ[employer]. The patient will be given blood transfusion only if the patient goes through dialysis. MD HAIR Rich/JALYIN /[id number]
--- NOTE | 2020-02-27 14:51 | Progress Note ---
DATE: 02/26/2020 RENAL PROGRESS NOTE: SUBJECTIVE: Followed for acute kidney injury on chronic kidney disease. The patient's kidney function is worse today. Creatinine is up to 3.89, BUN 78 likely secondary to the patient developing hypotension overnight leading to decreased perfusion to the kidneys. The patient's urine output also was decreased. Currently, no fever, no chills, no nausea, no vomiting. Breathing is slightly worse today. OBJECTIVE: VITAL SIGNS: Vital signs are noted. Blood pressure is better today 107/52, 95 pulse. GENERAL: The patient is afebrile. LUNGS: Rales at the bases bilaterally. CARDIOVASCULAR: S1, S2. No rub. ABDOMEN: Soft. Positive bowel sounds. EXTREMITIES: No edema. LABS: Reviewed, potassium 3.7, chloride 88, carbon dioxide 27, BUN 78, creatinine 3.89. IMPRESSION AND PLAN: 1. Acute kidney injury on chronic kidney disease stage 4. The patient has decreased kidney function secondary to hypotension, given fluid bolus yesterday, blood pressures are much better now, we will continue with midodrine. We will also continue with Lasix drip low rate since she was responding better to Lasix. 2. Hypotension has improved. Continue midodrine, continue IV Lasix. We will consider adding . 3. Hyponatremia. We will continue with diuresis since the patient appears . Thank you once again. Calvin Hurd MD TH/MODL /[id number]
--- NOTE | 2020-02-27 15:36 | NUR ---
PATIENT'S DAUGHTER BROUGHT HER PARTIAL LOWER DENTURE. LABELLED AND GIVEN TO THE PATIENT. IN BED WITH HEAD OF BED ELEVATED, CALL LIGHT AT REACH.
[2020-02-27 17:05] VITALS: BP 124/54
[2020-02-27 19:40] VITALS: BP_SYST 121; BP_SYST 131; BP_DIAS 75; BP_DIAS 95
[2020-02-28] VITALS (8 sets, daily range): BP systolic 109–124; BP diastolic 51–76
[2020-02-28] MEDS: MEROPENEM 500MG/ NS 50ML 50 ML IV SCH ×2 (06:01→17:12)
[2020-02-28] MEDS: SODIUM CHLORIDE 0.9% 1000ML 1,000 ML IV SCH (06:01)
--- NOTE | 2020-02-28 06:16 | NUR ---
IM- progress note O/N see below REVIEW OF SYSTEMS: unreliable PHYSICAL EXAMINATION GENERAL: A tired-appearing woman resting in bed. HEENT: Anicteric. Pupils respond to light. CARDIOVASCULAR: Normal S1 and S2. PALPABLE LEFT CHEST PPM. LUNGS: Moderate breath sounds. : BUENO ABDOMEN: Soft, nontender and nondistended. EXTREMITIES: No edema or calf tenderness. NEUROLOGICAL: Alert and oriented times 3. She moves all extremities. SKIN: Dry. PSYCHIATRIC: Normal affect. LABS: Reviewed. MEDICATIONS: Reviewed. 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 cct>35mins 10-1 check labs; improving; pressor off; lasix gtt remains; I/O 916/4050 10-2 Possible silent aspirations. BLood counts essential unchanged. 10-3 worsened LFTs. 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 10-4 Renal fn fluctuates from 11 to 16; appears stable; Remains oliguric; will need monitoring here by nephrology; may progress to HD, no urgent need at this time. 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 D#5/7 Merrem 10/5 Merrem D#6/7. Renal fn poor; output low; BUN continues to rise; check labs. MYA MILLARD MD, PHD.
[2020-02-28] MEDS: INSULIN REGULAR, HUMAN 100 UNIT/1 ML 3ML VIAL SQ SCH ×4 (07:30→21:00)
[2020-02-28 07:59] LABS: ANION GAP 22.2 mmol/L (8-16); CALCIUM 8.8 mg/dL (8.4-10.2); CREATININE, SERUM 4.16 mg/dL (0.57-1.11); POTASSIUM 4.2 mmol/L (3.5-5.1)
--- NOTE | 2020-02-28 09:25 | NUR ---
SPOKE WITH NURSE, PT DECLINED OVER WEEKEND WILL BEGIN DIALYSIS. ALERTED FACILITY. WILL HAVE TO START SNF OVER WHEN READY FOR DISCHARGE.
[2020-02-28] MEDS ORDERED: LIDOCAINE HCL 1% LOCAL INJ 20 ML VIAL ONE (09:55)
--- NOTE | 2020-02-28 10:20 | Progress Note ---
DATE: 02/28/2020 Renal Progress Note SUBJECTIVE: Followed for acute kidney injury on chronic kidney disease stage 4. The patient has sustained ATN. The patient now in worsening acute kidney injury state, not improving. Urine output has declined despite IV Lasix as well as trial of fluids. The patient's BUN and creatinine have gone up and estimated GFR is less than 10 mL per min and she is on fluid overload side. We will initiate acute dialysis today. The patient has some shortness of breath. No nausea, no vomiting. OBJECTIVE: VITAL SIGNS: Have been noted, stable. Systolic BPs in the 100 to 110s mmHg, afebrile. LUNGS: Rhonchi bilaterally. CARDIOVASCULAR: S1, S2. No rub. ABDOMEN: Soft. Positive bowel sounds. EXTREMITIES: No edema. LABORATORY DATA: Have been reviewed. Potassium is 4.2, BUN is 101, creatinine is 4.2, calcium is 8.8, sodium is 129. IMPRESSION AND PLAN: 1. Acute kidney injury on chronic kidney disease stage 4. The patient has worsening acute kidney injury state. We will ask Interventional Radiology to place a stat temporary dialysis catheter when she had acute dialysis. If the patient does require long-term dialysis, we will eventually switch this over to a tunneled catheter. For now, she will have a tubular necrosis on top of her CKD. We will initiate dialysis for uremia as well as fluid overload. We will discontinue the IV fluids. 2. Hypertension, stable. Continue low-dose midodrine. 3. Hyponatremia, likely from fluid overload when she had acute dialysis. 4. Metabolic acidosis likely from acute kidney injury state on chronic kidney disease. Discontinue IV fluid. We will initiate acute dialysis. Calvin Hurd MD TH/MODL /[id number]
[2020-02-28] MEDS ORDERED: HEPARIN SOD (PORCINE) 1000 UNIT/ML SDV ONE (10:30)
--- NOTE | 2020-02-28 11:34 | Diagnostic Imaging Report ---
PROCEDURE: Non-tunneled dialysis catheter placement Procedural Personnel Attending physician(s): Jeaninne Galvez MD Fellow physician(s): None Resident physician(s): None Advanced practice provider(s): None Pre-procedure diagnosis: JOAQUIN Post-procedure diagnosis: Same Indication: Performance of hemodialysis Additional clinical history: None Complications: No immediate complications. IMPRESSION: Insertion of right-sided non-tunneled triple-lumen temporary dialysis catheter, with tip in the expected location of the superior vena cava. Plan: The catheter may be used immediately. PROCEDURE SUMMARY: - Venous access with ultrasound guidance - Non-tunneled central venous catheter insertion with fluoroscopic guidance - Additional procedure(s): None PROCEDURE DETAILS: Pre-procedure Consent: Informed consent for the procedure including risks, benefits and alternatives was obtained and time-out was performed prior to the procedure. Preparation (MIPS): The site was prepared and draped using all elements of maximal sterile barrier technique including sterile gloves, sterile gown, cap, mask, large sterile sheet, sterile ultrasound probe cover, hand hygiene and cutaneous antisepsis with 2% chlorhexidine. Medical reason for site preparation exception (MIPS): Not applicable Anesthesia/sedation Level of anesthesia/sedation: No sedation Anesthesia/sedation administered by: Independent trained observer under attending supervision with continuous monitoring of the patient?s level of consciousness and physiologic status Total intra-service sedation time (minutes): NA Access Local anesthesia was administered. The vessel was sonographically evaluated and determined to be patent. Real time ultrasound was used to visualize needle entry into the vessel and a permanent image was stored. Vein accessed: Internal jugular vein Access technique: Micropuncture set with 21 gauge needle Catheter placement The access site was dilated and the catheter was placed into the vein over a wire under fluoroscopic guidance. The catheter tip location was fluoroscopically verified and a permanent image was stored.. A sterile dressing was applied. Catheter placed: [employer] Power Trialysis Catheter size (Latvian): 13 Catheter length (cm): 15 Catheter flush: Heparin (1000 units/mL) Catheter securement technique: Non-absorbable suture Contrast Contrast agent: None Contrast volume (mL): NA Radiation Dose Fluoroscopy time (minutes): 0.0 Reference air kerma (mGy): 0.3 Additional Details Additional description of procedure: None Equipment details: None Specimens removed: None Estimated blood loss (mL): Less than 10 Standardized report: [email or web address] Attestation Signer name: Jeannine Galvez MD I attest that I was present for the entire procedure. I reviewed the stored images and agree with the report as written. Signed by: Jeannine Galvez MD on 02/28/2020 11:31 AM
[2020-02-28] MEDS ORDERED: SODIUM CHLORIDE 0.9% 1000ML 1,000 ML IV PRN (12:00)
[2020-02-28] MEDS: FERROUS SULFATE 325 MG TAB PO SCH (12:13)
[2020-02-28] MEDS: MULTIVITAMINS/MINERALS TAB PO SCH (12:13)
[2020-02-28] MEDS: MIDODRINE HCL 5 MG TABLET PO SCH ×3 (12:13→17:21)
[2020-02-28] MEDS: PANTOPRAZOLE 40 MG 10ML VIAL IV SCH ×2 (12:13→17:12)
[2020-02-28] MEDS: ALLOPURINOL 100 MG TAB PO SCH (12:14)
[2020-02-28] MEDS: CYANOCOBALAMIN 1,000 MCG TAB PO SCH (12:14)
[2020-02-28] MEDS: PRAVASTATIN 20 MG TAB PO SCH (12:14)
--- NOTE | 2020-02-28 14:00 | NUR ---
Spoke with daughter-POA this morning and obtained consent for dialysis catheter placement and hemodialysis. Verified by two nurses. Pt was take to radiology department and right IJ nontunnelled catheter. First dialysis treatment was done later today. Well tolerated by patient.
[2020-02-28] MEDS ORDERED: HEPARIN SOD (PORCINE) 1000 UNIT/ML SDV IV PRN (16:00)
[2020-02-28] MEDS ORDERED: SODIUM CHLORIDE 0.9% 1000ML 2,000 ML IV PRN (16:00)
[2020-02-28] MEDS ORDERED: MANNITOL 25% 12.5GM/50 ML VIAL IV PRN (16:00)
--- NOTE | 2020-02-28 16:12 | NUR ---
Nutrition Intervention Note RD Recommendation(s) for Physician: - Continue current diet - Continue Glucerna Shakes as snacks - Recommend checking Phos with next lab draw - Encourage po intake and assist with meals as needed Plan of Care: RD following, monitoring for tolerance and adequacy. Diet and ONS rec's. Nutrition reason for involvement: follow up RD Assessment 02/27: Follow up. Pt sleeping at time of visit, receiving first HD tx at time of visit- previously refusing HD and non-tunneled catheter placed today. Pt continues with poor intake, noted 0-25% of meals per chart. No BM documented, no GI distress documented. Chart reviewed. Current rec's remain appropriate. Potential improvement of intake with initiation of HD, will continue to monitor. 02/22: 89 YOM admitted for fever and hyponatremia with recent hx of lymphoma undergoing chemotherapy. Pt assessed today per MST screen. Pt with confusion, unable to obtain nutrition hx at this time. Pt appears well nourished. Hyponatremia improving, off Levophed. Pt with poor intake since admit, with episode of dry heaving while working with PT. Chart reviewed. Rec's provided. Will continue to monitor. Principal Problems/Diagnoses: fever, hyponatremia, leukocytosis, lymphoma PMH: B cell lymphoma, DM, HTN, diabetic neuropathy, gout, anemia, chronic renal insufficiency GI: abd soft, non-tender, + bowel sounds; no BM recorded Skin: intact Labs: 02/27: Na 129, K 4.2, BUN 101, Cr 4.16, Gluc 111, POC Gluc 114-156 02/22: Na 126, K 4.2, BUN 58, Cr 2.79, Gluc 254, Ca 9.1, Phos 5.8, Mg 1.9 Meds: protonix, pravastatin, feosol, vitamin B12, MVI with minerals, insulin, zofran Ht: 65 in Wt: 189.39 lb (02/27)- questionable wt loss, 221 lb (02/22) BMI: 36.8 kg/m2 IBW: 125 lb Malnutrition Evaluation (02/28/20) The patient does not meet criteria for a specified degree of malnutrition at this time. Will re-evaluate at follow-up as appropriate. Energy intake: moderate acute, <50% intake x >5 days Weight loss: ITZ, questionable wt changes since admit Fat loss: none observed, ample skinfold thickness Muscle loss: none observed, shoulder round Supporting Evidence: Fluid accumulation: none Functional Status: unable to evaluate Nutrition Prescription (Diet Order): Cardiac, mechanical soft, chopped, 1800 ADA, extra gravy Estimated Nutritional Needs: 8288-1636 calories/day (22-25 kcal/kg IBW) 85-114 g protein/day (1.5-2 g pro/kg IBW) Diet Adequacy: Not meeting calorie needs, Not meeting protein needs Diet Tolerance: Diet Education Needs Assessment: Diet education not indicated. Nutrition Care Level: high- poor po intake Nutrition Diagnosis: Inadequate energy and protein intake related to current condition as evidenced by poor po intake and not meeting needs. Goal: Patient will meet 75-100% of estimated needs by follow up Progress: not progressing Interventions: - Fat, mineral, texture modified diet, Commercial beverage, Recommended Modifications, Multivitamin/mineral supplement therapy, Collaboration with other providers Monitoring/Evaluation: - Total energy intake, Total protein intake, Modified diet, Liquid supplement, Weight change Signed: Jewell Gómez RD, LD, [facility]
[2020-02-29] VITALS (9 sets, daily range): BP systolic 113–138; BP diastolic 40–62
[2020-02-29] MEDS: MEROPENEM 500MG/ NS 50ML 50 ML IV SCH ×2 (05:30→17:21)
[2020-02-29 05:49] LABS: BASOPHILS % 0.2 % (0.0-1.0); EOSINOPHILS # (AUTO) 0.2 (0.0-0.4); EOSINOPHILS % 1.2 % (0.0-6.0); HEMATOCRIT 23.7 % (34.2-44.1); HEMOGLOBIN 7.7 g/dL (12.0-16.0); LYMPHOCYTES # (AUTO) 0.2 (1.0-3.2); LYMPHOCYTES % 1.5 % (18.0-39.1); MEAN CORPUSCULAR HEMOGLOBIN 28.6 pg (28-32); MEAN CORPUSCULAR HGB CONC 32.5 g/dL (31-35); MEAN CORPUSCULAR VOLUME 88.1 fL (81-99); MONOCYTES # (AUTO) 0.1 (0.2-0.8); MONOCYTES % 0.9 % (4.4-11.3); NEUTROPHILS # (AUTO) 12.3 (2.1-6.9); NEUTROPHILS % 95.4 % (38.7-80.0); PLATELET COUNT 189 x10e3/uL (140-360); RED BLOOD COUNT 2.69 x10e6/uL (3.6-5.1); RED CELL DISTRIBUTION WIDTH 14.4 % (11.7-14.4)
[2020-02-29 06:10] LABS: ALBUMIN/GLOBULIN RATIO 0.5 (0.8-2.0); ANION GAP 19.1 mmol/L (8-16); CALCIUM 8.6 mg/dL (8.4-10.2); CREATININE, SERUM 3.38 mg/dL (0.57-1.11); MAGNESIUM 1.8 MG/DL (1.3-2.1); PHOSPHORUS 5.7 MG/DL (2.3-4.7); POTASSIUM 4.1 mmol/L (3.5-5.1)
[2020-02-29] MEDS: INSULIN REGULAR, HUMAN 100 UNIT/1 ML 3ML VIAL SQ SCH ×5 (07:30→21:39)
[2020-02-29] MEDS: PANTOPRAZOLE 40 MG 10ML VIAL IV SCH ×2 (08:00→17:21)
[2020-02-29 08:20] LABS: EOSINOPHILS % (MANUAL) 2 % (0-7); PLATELET ESTIMATE ADEQUATE; PLATELET MORPHOLOGY COMMENT NORMAL; RBC MORPHOLOGY COMMENT NORMAL
[2020-02-29 08:21] LABS: LYMPHOCYTES % (MANUAL) 1 % (19-48); MONOCYTES % (MANUAL) 1 % (3.4-9.0); NEUTROPHILS % (MANUAL) 95 % (40-74)
[2020-02-29] MEDS ORDERED: HEPARIN SOD (PORCINE) 1000 UNIT/ML SDV IV PRN (08:30)
[2020-02-29] MEDS: FERROUS SULFATE 325 MG TAB PO SCH (10:07)
[2020-02-29] MEDS: ALLOPURINOL 100 MG TAB PO SCH (10:07)
[2020-02-29] MEDS: CYANOCOBALAMIN 1,000 MCG TAB PO SCH (10:07)
[2020-02-29] MEDS: MULTIVITAMINS/MINERALS TAB PO SCH (10:07)
[2020-02-29] MEDS: PRAVASTATIN 20 MG TAB PO SCH (10:07)
--- NOTE | 2020-02-29 15:09 | Progress Note ---
DATE: 02/29/2020 Renal Progress Note SUBJECTIVE: Followed for acute kidney injury on chronic kidney disease, stage 4. The patient had sustained acute tubular necrosis, had to be started on dialysis yesterday, also tolerating dialysis treatment #2 today. No nausea. No vomiting. Breathing has improved. The patient's fluid overload is also starting to improve. OBJECTIVE: VITAL SIGNS: Blood pressure is 137/60, 59 pulse. The patient is afebrile. LUNGS: Minimal rales at the bases bilaterally. CARDIOVASCULAR: S1 and S2. No rub. ABDOMEN: Soft and nontender. EXTREMITIES: No edema. LABORATORY WORKUP: H and H are 7.7 and 23.7. Chemistry; sodium 132, potassium 4.1, chloride 95, bicarb 23, BUN 77, and creatinine is 3.38. IMPRESSION AND PLAN: 1. Acute kidney injury on chronic kidney disease, stage 4. We will do acute dialysis treatment #3 tomorrow for more fluid removal and also clearances. We will watch over the weekend and if the patient is not recovering by next week, may have to get a tunneled dialysis catheter and arrange outpatient dialysis, and still watch her kidney function for any recovery of acute kidney injury. For now, has sustained acute tubular necrosis as a cause for her acute kidney injury. Continue to monitor closely. 2. Hypertension. Blood pressure is stable. Continue to monitor closely. 3. Continue low-dose midodrine. We will decrease dose to 5 mg twice a day since the blood pressure is improved now. 4. Fluid overload/hyponatremia secondary to hypervolemia, improving with dialysis. The patient was not able to respond to IV Lasix and therefore was started on dialysis with worsening acute kidney injury state as well as fluid overload. Calvin Hurd MD TH/MODL /[id number]
[2020-02-29] MEDS: MIDODRINE HCL 5 MG TABLET PO SCH (17:21)
[2020-02-29] MEDS: EPOETIN ALFA-EPBX 10,000 UNIT/ML VIAL SC SCH (17:21)
[2020-02-29] MEDS ORDERED: ONDANSETRON HCL 4 MG ORAL DISINTEGRATING TAB PO PRN (17:45)
[2020-03-01] VITALS (8 sets, daily range): BP systolic 112–138; BP diastolic 59–81
[2020-03-01] MEDS: MEROPENEM 500MG/ NS 50ML 50 ML IV SCH (05:18)
[2020-03-01 06:18] LABS: BASOPHILS % 0.4 % (0.0-1.0); EOSINOPHILS # (AUTO) 0.2 (0.0-0.4); EOSINOPHILS % 1.4 % (0.0-6.0); HEMATOCRIT 24.8 % (34.2-44.1); HEMOGLOBIN 8.1 g/dL (12.0-16.0); LYMPHOCYTES # (AUTO) 0.2 (1.0-3.2); LYMPHOCYTES % 1.8 % (18.0-39.1); MEAN CORPUSCULAR HEMOGLOBIN 29.6 pg (28-32); MEAN CORPUSCULAR HGB CONC 32.7 g/dL (31-35); MEAN CORPUSCULAR VOLUME 90.5 fL (81-99); MONOCYTES # (AUTO) 0.2 (0.2-0.8); MONOCYTES % 1.7 % (4.4-11.3); NEUTROPHILS # (AUTO) 10.6 (2.1-6.9); NEUTROPHILS % 93.9 % (38.7-80.0); PLATELET COUNT 145 x10e3/uL (140-360); RED BLOOD COUNT 2.74 x10e6/uL (3.6-5.1); RED CELL DISTRIBUTION WIDTH 14.6 % (11.7-14.4)
[2020-03-01 06:34] LABS: ANION GAP 18.7 mmol/L (8-16); CALCIUM 8.4 mg/dL (8.4-10.2); CREATININE, SERUM 2.38 mg/dL (0.57-1.11); POTASSIUM 4.7 mmol/L (3.5-5.1)
--- NOTE | 2020-03-01 06:46 | NUR ---
IM- progress note O/N see below REVIEW OF SYSTEMS: unreliable PHYSICAL EXAMINATION GENERAL: A tired-appearing woman resting in bed. HEENT: Anicteric. Pupils respond to light. CARDIOVASCULAR: Normal S1 and S2. PALPABLE LEFT CHEST PPM. LUNGS: Moderate breath sounds. : BUENO ABDOMEN: Soft, nontender and nondistended. EXTREMITIES: No edema or calf tenderness. NEUROLOGICAL: Alert and oriented times 3. She moves all extremities. SKIN: Dry. PSYCHIATRIC: Normal affect. LABS: Reviewed. MEDICATIONS: Reviewed. 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 cct>35mins 10-1 check labs; improving; pressor off; lasix gtt remains; I/O 916/4050 10-2 Possible silent aspirations. BLood counts essential unchanged. 10-3 worsened LFTs. 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 10-4 Renal fn fluctuates from 11 to 16; appears stable; Remains oliguric; will need monitoring here by nephrology; may progress to HD, no urgent need at this time. 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 D#5/7 Merrem 10/5 Merrem D#6/7. Renal fn poor; output low; BUN continues to rise; check labs. 10-6 worsened renal fn- started on HD; D#7/ merrem. 10-7 stop merrem; now 3 treatments of HD. MYA MILLARD MD, PHD.
[2020-03-01 07:28] LABS: ANISOCYTOSIS SLIGHT; EOSINOPHILS % (MANUAL) 1 % (0-7); LYMPHOCYTES % (MANUAL) 1 % (19-48); MONOCYTES % (MANUAL) 1 % (3.4-9.0); NEUTROPHILS % (MANUAL) 97 % (40-74); PLATELET ESTIMATE ADEQUATE; PLATELET MORPHOLOGY COMMENT NORMAL; RBC MORPHOLOGY COMMENT NORMAL
[2020-03-01] MEDS: INSULIN REGULAR, HUMAN 100 UNIT/1 ML 3ML VIAL SQ SCH ×4 (08:22→21:00)
[2020-03-01] MEDS: MULTIVITAMINS/MINERALS TAB PO SCH (08:51)
[2020-03-01] MEDS: MIDODRINE HCL 5 MG TABLET PO SCH (08:51)
[2020-03-01] MEDS: FERROUS SULFATE 325 MG TAB PO SCH (08:51)
[2020-03-01] MEDS: ALLOPURINOL 100 MG TAB PO SCH (08:51)
[2020-03-01] MEDS: CYANOCOBALAMIN 1,000 MCG TAB PO SCH (08:51)
[2020-03-01] MEDS: PRAVASTATIN 20 MG TAB PO SCH (08:51)
[2020-03-01] MEDS ORDERED: SODIUM CHLORIDE 0.9% 1000ML 2,000 ML ONE (08:55)
--- NOTE | 2020-03-01 10:22 | Progress Note ---
DATE: 03/01/2020 Renal Progress Note SUBJECTIVE: Followed for acute kidney injury on chronic kidney disease. The patient is going to have dialysis treatment #3 today. The patient is starting to become nonoliguric and perhaps acute kidney injury. We will start to improve. Did develop sustained ATN from hypotension. Has responded well to fluid removal. Currently, no fever, no chills. Shortness of breath is improved. OBJECTIVE: VITAL SIGNS: Noted. Blood pressure is 138/67, 71 pulse. The patient is afebrile and saturating 99% on room air. LUNGS: Have minimal rales at the bases bilaterally, mostly clear to auscultation. CARDIOVASCULAR: S1 and S2. No rub. ABDOMEN: Soft and nontender. EXTREMITIES: No edema. LABORATORY DATA: H and H are 8.1 and 24.8. Sodium 133, potassium 4.7, chloride 98, bicarb 21, BUN 51, and creatinine is 2.38. IMPRESSION AND PLAN: 1. Acute kidney injury on chronic kidney disease, stage 4. Suspect there may be a possible recovery from her acute tubular necrosis. The patient is becoming nonoliguric now. We will continue with dialysis today and we will watch off dialysis tomorrow and re-evaluate on Friday and we will make further recommendations. If by next week, the patient has not had any recovery, then may require a tunneled dialysis catheter and outpatient placement. We will continue to monitor closely. 2. Hypertension. Blood pressure is much better now. We will decrease the midodrine to once a day. 3. Hyponatremia, improving with dialysis and ultrafiltration with dialysis. We will continue to monitor. Calvin Hurd MD TH/MODL /[id number]
--- NOTE | 2020-03-01 10:53 | Progress Note ---
DATE: 03/01/2020 Mary Wray is an 89-year-old female patient with lymphoma. The patient's hemoglobin today is 8.1, hematocrit 24.8, white count 11,280, platelets of 145,000 with a marked shift to the left. The patient's BUN and creatinine still are high at 51 and 2.38. Uric acid is not available at this time for review, however, has been normal. Calcium 8.4. The patient had a modified barium swallow illustrates pharyngeal and vallecular residue. The patient's family has been informed that the patient will not receive any chemotherapy until she recovers completely as this is a low-grade lymphoma, which is not curable. I will confine myself to Hematology. MD HAIR Rich/JAYLIN /[id number]
--- NOTE | 2020-03-01 12:38 | Progress Note ---
DATE: SUBJECTIVE: The patient is afebrile. She is less confused. She is receiving dialysis today. PHYSICAL EXAMINATION: VITAL SIGNS: The blood pressure is 121/60, saturation is 96% on 2 L, and the pulse is 68. The respiratory rate is 16. HEENT: Shows no facial swelling or erythema. LYMPHATIC: Shows no submandibular, cervical, or supraclavicular adenopathy. CARDIAC: Reveals regular rate and rhythm with normal S1 and S2. LUNGS: Auscultation of lungs reveals crackles at the bases. There is no wheezing. ABDOMEN: Soft and nontender. There is no rebound or guarding. EXTREMITIES: Show no leg edema or calf tenderness. There is no cyanosis or clubbing. SKIN: Shows no rashes. NEUROLOGIC: Shows no focal abnormalities. LABORATORY DATA: White blood cell count of 11.2, hemoglobin is 8.1, and platelet count is 145. The BUN to creatinine ratio is 51 to 2.38 and the other electrolytes are within normal limits. IMPRESSION: 1. Aspiration pneumonia with sepsis, present on admission. 2. Bfnbl-au-taucgps renal failure. 3. Anemia, unspecified. 4. Low-grade B-cell lymphoma. 5. Metabolic encephalopathy. 6. Diastolic heart failure, present on admission. 7. Hypertension. PLAN: 1. Continue dialysis today. Hopefully, the patient is improving and would not need dialysis permanently. 2. Complete current antibiotics. 3. Physical therapy. 4. Continue to monitor and control blood sugars. Nitin Moreno MD [facility]/MODL /[id number]
[2020-03-01] MEDS: PANTOPRAZOLE 40 MG 10ML VIAL IV SCH ×2 (12:40→15:40)
[2020-03-01] MEDS: EPOETIN ALFA-EPBX 10,000 UNIT/ML VIAL SC SCH (15:40)
--- NOTE | 2020-03-01 19:02 | NUR ---
Report given to oncoming nurse of patient's status. Resting in bed. AAOX2 to person, place. Respirations even and unlabored. Side rails upx2, call light within reach, bed alarm on.
--- NOTE | 2020-03-01 19:57 | NUR ---
RECEIVED PATIENT IN BED AOX2 NO S/S OF DISTRESS. DENIED PAIN AT THIS TIME. . BED IN LOWER POSITION, CALL LIGHT AT REACH.CONTINUE TO MONITOR
[2020-03-02] VITALS (8 sets, daily range): BP systolic 103–124; BP diastolic 55–72
[2020-03-02 05:20] LABS: BASOPHILS % 0.3 % (0.0-1.0); EOSINOPHILS # (AUTO) 0.1 (0.0-0.4); EOSINOPHILS % 1.3 % (0.0-6.0); HEMATOCRIT 27.1 % (34.2-44.1); HEMOGLOBIN 8.6 g/dL (12.0-16.0); LYMPHOCYTES # (AUTO) 0.4 (1.0-3.2); LYMPHOCYTES % 3.4 % (18.0-39.1); MEAN CORPUSCULAR HEMOGLOBIN 28.2 pg (28-32); MEAN CORPUSCULAR HGB CONC 31.7 g/dL (31-35); MEAN CORPUSCULAR VOLUME 88.9 fL (81-99); MONOCYTES # (AUTO) 0.1 (0.2-0.8); MONOCYTES % 1.3 % (4.4-11.3); NEUTROPHILS # (AUTO) 10.1 (2.1-6.9); NEUTROPHILS % 92.5 % (38.7-80.0); PLATELET COUNT 104 x10e3/uL (140-360); RED BLOOD COUNT 3.05 x10e6/uL (3.6-5.1); RED CELL DISTRIBUTION WIDTH 14.4 % (11.7-14.4)
[2020-03-02 05:40] LABS: ANION GAP 15.5 mmol/L (8-16); CALCIUM 8.4 mg/dL (8.4-10.2); CREATININE, SERUM 1.58 mg/dL (0.57-1.11); MAGNESIUM 1.6 MG/DL (1.3-2.1); PHOSPHORUS 2.8 MG/DL (2.3-4.7); POTASSIUM 3.5 mmol/L (3.5-5.1)
--- NOTE | 2020-03-02 07:09 | NUR ---
BEDSIDE REPORT GIVEN TO THE ONCOMING NURSE
--- NOTE | 2020-03-02 07:09 | NUR ---
PT RESTED DURING THE NIGHT ,DENIES PAIN ,CALL LIGHT WITH IN REACH CONTINUE TO MONITOR
--- NOTE | 2020-03-02 07:14 | NUR ---
IM- progress note O/N see below REVIEW OF SYSTEMS: unreliable PHYSICAL EXAMINATION GENERAL: A tired-appearing woman resting in bed. HEENT: Anicteric. Pupils respond to light. CARDIOVASCULAR: Normal S1 and S2. PALPABLE LEFT CHEST PPM. LUNGS: Moderate breath sounds. : BUENO ABDOMEN: Soft, nontender and nondistended. EXTREMITIES: No edema or calf tenderness. NEUROLOGICAL: Alert and oriented times 3. She moves all extremities. SKIN: Dry. PSYCHIATRIC: Normal affect. LABS: Reviewed. MEDICATIONS: Reviewed. 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 cct>35mins 10-1 check labs; improving; pressor off; lasix gtt remains; I/O 916/4050 10-2 Possible silent aspirations. BLood counts essential unchanged. 10-3 worsened LFTs. 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 10-4 Renal fn fluctuates from 11 to 16; appears stable; Remains oliguric; will need monitoring here by nephrology; may progress to HD, no urgent need at this time. 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 D#5/7 Merrem 10/5 Merrem D#6/7. Renal fn poor; output low; BUN continues to rise; check labs. 10-6 worsened renal fn- started on HD; D#7/7 merrem. 10-7 stop merrem; now 3 treatments of HD. 10-8 BUN and GFR improving; monitor; MYA MILLARD MD, PHD.
[2020-03-02] MEDS: PRAVASTATIN 20 MG TAB PO SCH (07:51)
[2020-03-02] MEDS: MULTIVITAMINS/MINERALS TAB PO SCH (07:51)
[2020-03-02] MEDS: PANTOPRAZOLE 40 MG 10ML VIAL IV SCH ×2 (07:51→15:42)
[2020-03-02] MEDS: ALLOPURINOL 100 MG TAB PO SCH (07:51)
[2020-03-02] MEDS: CYANOCOBALAMIN 1,000 MCG TAB PO SCH (07:51)
[2020-03-02] MEDS: FERROUS SULFATE 325 MG TAB PO SCH (07:51)
[2020-03-02] MEDS: INSULIN REGULAR, HUMAN 100 UNIT/1 ML 3ML VIAL SQ SCH ×4 (08:01→21:00)
--- NOTE | 2020-03-02 08:19 | Diagnostic Imaging Report ---
TECHNIQUE: Frontal view of the chest. INDICATION: ^CHF ^[id number] ^[id number] COMPARISON: 02/26/2020 DISCUSSION: Limited evaluation due to portable technique. Lines and hardware: Right internal jugular nontunneled pneumatosis catheter is noted with tip projecting over the cavoatrial junction. Access right chest port is noted in stable position with tip projecting at the mid to upper SVC. Left chest wall dual-lead pacemaker is stable. Heart and mediastinum: Cardiomediastinal silhouette is enlarged. Central vascular congestion is noted, increased since prior exam. Lungs and pleura: Prominent interstitial markings are noted diffusely, increased since prior exam. Blunting of left costophrenic angle with possible superimposed consolidation at the left lung base is stable. Negative for large pneumothorax. Soft tissues and bones: No acute abnormality. IMPRESSION: 1. Interval worsening of fluid overload with increased vascular congestion and prominent interstitial markings. Stable cardiomegaly. 2. Stable left basilar opacities which could relate to any combination of effusion, atelectasis or consolidation. Signed by: Cirilo Puentes MD on 03/02/2020 8:15 AM
--- NOTE | 2020-03-02 08:34 | NUR ---
Notified of BNP and chest xray results. No new orders.States "I will come see the patient today."
[2020-03-02] MEDS ORDERED: MIDODRINE HCL 5 MG TABLET PO SCH (09:00)
[2020-03-02] MEDS: FUROSEMIDE INJ 10 MG/ML 4 ML VIAL IV SCH ×3 (09:42→22:40)
--- NOTE | 2020-03-02 10:14 | Progress Note ---
DATE: 03/02/2020 Renal Progress Note SUBJECTIVE: Followed for acute kidney injury on chronic kidney disease. Continues to make more urine. The patient's chest x-ray does show a fluid overload, still despite starting dialysis and removing fluids for the last two days in a row. Breathing has more less stayed the same. Chest x-ray is showing worsening fluid overload, however, may be lying behind clinical improvement. No nausea, no vomiting. No overt shortness of breath. OBJECTIVE: VITAL SIGNS: Have been noted. Blood pressure is good at 124/68 and respirations 18. LUNGS: Rales bilaterally lung boyce. CARDIOVASCULAR: S1 and S2. No rub. ABDOMEN: Soft. Positive bowel sounds. EXTREMITIES: No edema. LABORATORY WORKUP: Sodium 135, potassium 3.5, chloride 99, carbon 24, BUN 30, and creatinine is 1.6. IMPRESSION AND PLAN: 1. Acute kidney injury on chronic kidney disease. Acute kidney injury is likely secondary to ATN, which may be starting to improve. For today, we will watch off dialysis and we will diurese with IV Lasix since the patient is now nonoliguric. If kidney function is not improving tomorrow and the patient is still on fluid overload side and we will do another dialysis session tomorrow. 2. Hypertension. Blood pressure is on the low side of normal, however, has responded to midodrine. We will continue giving scheduled midodrine. May increase to twice a day blood pressure is dropping. 3. Anemia of chronic disease, stable on Epogen. 4. Fluid overload/congestive heart failure exacerbation. Continue with IV Lasix since the patient is nonoliguric now. We will start back 40 mg IV q.8 hours and if not much response tomorrow, then we will also consider doing a dialysis session. MD ANDRIY Rosario/MODL /[id number]
[2020-03-02 11:27] LABS: LYMPHOCYTES % (MANUAL) 9 % (19-48); MONOCYTES % (MANUAL) 6 % (3.4-9.0); NEUTROPHILS % (MANUAL) 85 % (40-74)
[2020-03-02 11:28] LABS: HYPOCHROMASIA SLIGHT; PLATELET ESTIMATE SLIGHTLY DECREASED; PLATELET MORPHOLOGY COMMENT FEW LARGE; POLYCHROMASIA FEW; RBC MORPHOLOGY COMMENT NORMAL
--- NOTE | 2020-03-02 11:41 | Progress Note ---
DATE: SUBJECTIVE: The patient is currently resting. Her creatinine has been improving. She has no fevers. PHYSICAL EXAMINATION: VITAL SIGNS: Blood pressure is 124/68, saturation is 100% on 2 L and the pulse is 102. HEENT: Shows no facial swelling or erythema. CARDIAC: Reveals regular rate and rhythm with normal S1 and S2. LUNGS: Auscultation of lungs shows decreased breath sounds at the bases. There is no wheezing. ABDOMEN: Soft and nontender. There is no rebound or guarding. EXTREMITIES: Shows no leg edema or calf tenderness. IMPRESSION: 1. Acute renal failure. 2. Hypertension. 3. Anemia secondary to chronic blood loss. 4. Low-grade B-cell lymphoma. 5. Metabolic encephalopathy. 6. Diastolic heart failure. PLAN: 1. Continue to monitor renal function off dialysis. 2. Continue to monitor electrolytes. 3. Physical therapy. 4. Continue to monitor and control blood sugars. 5. Continue to monitor blood counts. MD LITO Beebe/CLARYL /[id number]
[2020-03-02] MEDS: MIDODRINE HCL 5 MG TABLET PO SCH (15:42)
--- NOTE | 2020-03-02 17:06 | NUR ---
Nutrition Intervention Note RD Recommendation(s) for Physician: - Continue current diet - Encourage Glucerna Shakes - Encourage po intake and assist with meals as needed Plan of Care: RD following, monitoring for tolerance and adequacy. Diet and ONS rec's. Nutrition reason for involvement: follow up RD Assessment 03/02: Follow up. Chart reviewed. Pt had been receiving dialysis. Pt continues with poor intake and reports she is not eating much. Pt also mentioned she had not been drinking the Glucerna nutrition supplements since she stated they are too sweet. Offered pt a different nutrition supplement, but pt was not interested. Pt was unsure of her usual weight or of any recent weight changes. Current recommendations remain appropriate. Will continue to monitor. 02/27: Follow up. Pt sleeping at time of visit, receiving first HD tx at time of visit- previously refusing HD and non-tunneled catheter placed today. Pt continues with poor intake, noted 0-25% of meals per chart. No BM documented, no GI distress documented. Chart reviewed. Current rec's remain appropriate. Potential improvement of intake with initiation of HD, will continue to monitor. 02/22: 89 YOM admitted for fever and hyponatremia with recent hx of lymphoma undergoing chemotherapy. Pt assessed today per MST screen. Pt with confusion, unable to obtain nutrition hx at this time. Pt appears well nourished. Hyponatremia improving, off Levophed. Pt with poor intake since admit, with episode of dry heaving while working with PT. Chart reviewed. Rec's provided. Will continue to monitor. Principal Problems/Diagnoses: fever, hyponatremia, leukocytosis, lymphoma PMH: B cell lymphoma, DM, HTN, diabetic neuropathy, gout, anemia, chronic renal insufficiency GI: abd soft, non-tender, round, no BM recorded Skin: intact Labs: 03/02: Na 135, K 3.5, BUN 30, Cr 1.58, Glu 121, Ca 8.4 02/27: Na 129, K 4.2, BUN 101, Cr 4.16, Gluc 111, POC Gluc 114-156 02/22: Na 126, K 4.2, BUN 58, Cr 2.79, Gluc 254, Ca 9.1, Phos 5.8, Mg 1.9 Meds: insulin, lasix, protonix, zofran, ferrous sulfate, vitamin B12, mannitol, Ht: 65 in Wt: 176.5 lbs (03/02) 189.39 lb (02/27) 221 lb (02/22) questionable wt loss, of note pt is on a diuretic BMI: 36.8 kg/m2 IBW: 125 lb Malnutrition Evaluation (02/28/20) The patient does not meet criteria for a specified degree of malnutrition at this time. Will re-evaluate at follow-up as appropriate. Energy intake: moderate acute, <50% intake x >5 days Weight loss: ITZ, questionable wt changes since admit Fat loss: none observed, ample skinfold thickness Muscle loss: none observed, shoulder round Supporting Evidence: Fluid accumulation: none Functional Status: unable to evaluate Nutrition Prescription (Diet Order): Cardiac, mechanical soft, chopped, 1800 ADA, extra gravy Estimated Nutritional Needs: 3999-8370 calories/day (22-25 kcal/kg IBW) 85-114 g protein/day (1.5-2 g pro/kg IBW) Diet Adequacy: Not meeting calorie needs, Not meeting protein needs Diet Tolerance: pt reports she is not eating much Diet Education Needs Assessment: Diet education not indicated. Nutrition Care Level: high- poor po intake Nutrition Diagnosis: Inadequate energy and protein intake related to current condition as evidenced by poor po intake and not meeting needs. Goal: Patient will meet 75-100% of estimated needs by follow up Progress: not progressing Interventions: - Fat, mineral, texture modified diet, Commercial beverage, Recommended Modifications, Multivitamin/mineral supplement therapy, Collaboration with other providers Monitoring/Evaluation: - Total energy intake, Total protein intake, Modified diet, Liquid supplement, Weight change Signed: Vandana Hall, RD, LD
--- NOTE | 2020-03-02 19:18 | NUR ---
Report given to oncoming nurse of patient's status. Resting in bed. NO s/s of acute distress noted. side rails upx2, call light within reach, bed alarm on.
--- NOTE | 2020-03-02 21:19 | NUR ---
RECEIVED PATIENT IN BED AOX2 NO S/S OF DISTRESS. DENIED PAIN AT THIS TIME. . BED IN LOWER POSITION, CALL LIGHT AT REACH.CONTINUE TO MONITOR
--- NOTE | 2020-03-02 21:19 | Progress Note ---
DATE: 03/02/2020 SUBJECTIVE: Mary Wray is an 89-year-old female, a patient of mine with lymphoma and the patient is undergoing dialysis. Hematologically, she is stable with a hemoglobin of 8.6, white count of 10,860, and platelets of 104,000. However, the platelets have shown a drop from 02/25 when she was at a level of 289, now 104, yesterday 145. 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 Her IgG is low at 529, IgA low at 80 an IgM low at 42. However, this is of academic interest at this time, as I cannot give her any immunoglobulin since she is in renal failure, getting dialysis. Chemistry; sodium of 135, potassium 3.5, BUN and creatinine are 30 and 1.58. I have spoken to the patient's daughter at length that no chemotherapy will be given and tell the patient recovers completely. I will confine myself to Hematology/Oncology. Systemic chemotherapy will be instituted at the office once completely stable with normal renal function and walked out of this institution. The chest x-ray of 03/02 has shown interval worsening fluid overload. I will confine myself to Hematology. MD HAIR Rich/JAYLIN /[id number] cc: Blake Kohler MD
[2020-03-03] VITALS (7 sets, daily range): BP systolic 93–120; BP diastolic 50–65
[2020-03-03 05:22] LABS: BASOPHILS % 0.3 % (0.0-1.0); EOSINOPHILS # (AUTO) 0.1 (0.0-0.4); EOSINOPHILS % 0.7 % (0.0-6.0); HEMATOCRIT 28.4 % (34.2-44.1); HEMOGLOBIN 9.1 g/dL (12.0-16.0); LYMPHOCYTES # (AUTO) 0.7 (1.0-3.2); LYMPHOCYTES % 5.8 % (18.0-39.1); MEAN CORPUSCULAR HEMOGLOBIN 28.1 pg (28-32); MEAN CORPUSCULAR VOLUME 87.7 fL (81-99); MONOCYTES # (AUTO) 0.1 (0.2-0.8); MONOCYTES % 0.8 % (4.4-11.3); NEUTROPHILS # (AUTO) 10.4 (2.1-6.9); NEUTROPHILS % 91.1 % (38.7-80.0); PLATELET COUNT 91 x10e3/uL (140-360); RED BLOOD COUNT 3.24 x10e6/uL (3.6-5.1); RED CELL DISTRIBUTION WIDTH 14.2 % (11.7-14.4)
[2020-03-03 05:48] LABS: ALBUMIN/GLOBULIN RATIO 0.5 (0.8-2.0); ANION GAP 19.4 mmol/L (8-16); CALCIUM 8.4 mg/dL (8.4-10.2); CREATININE, SERUM 1.77 mg/dL (0.57-1.11); MAGNESIUM 1.3 MG/DL (1.3-2.1); PHOSPHORUS 3.4 MG/DL (2.3-4.7); POTASSIUM 3.4 mmol/L (3.5-5.1)
[2020-03-03] MEDS: FUROSEMIDE INJ 10 MG/ML 4 ML VIAL IV SCH ×3 (06:13→21:48)
--- NOTE | 2020-03-03 07:18 | NUR ---
PT RESTED DURING THE NIGHT ,NOACUTE DISTRESS NOTED ,BEDSIDE REPORT GIVEN TO THE ONCOMING NURSE
[2020-03-03] MEDS: INSULIN REGULAR, HUMAN 100 UNIT/1 ML 3ML VIAL SQ SCH ×4 (07:30→21:48)
--- NOTE | 2020-03-03 07:30 | NUR ---
PATIENT IN BED RESTING WITH NO S/S OF DISTRESS. RIGHT NECK DIALYSIS CATHETER WITH DRESSING DRY AND INTACT. BED IN LOWER POSITION, CALL LIGHT AT REACH.
[2020-03-03] MEDS ORDERED: MAGNESIUM SULFATE 2GM/50ML 50 ML IV ONE ×2 (08:30→13:15)
[2020-03-03] MEDS: PANTOPRAZOLE 40 MG 10ML VIAL IV SCH ×2 (09:00→17:18)
--- NOTE | 2020-03-03 09:00 | Progress Note ---
DATE: 03/03/2020 Renal Progress Note SUBJECTIVE: Followed for acute kidney injury on chronic kidney disease stage 4. The patient's BUN and creatinine without dialysis have not risen steeply enough. The patient is now nonoliguric. However, chest x-ray yesterday did show worsening pulmonary vascular congestion. I did place her back on IV Lasix and she is responding to it. No nausea, no vomiting, no shortness of breath. OBJECTIVE: VITAL SIGNS: Vital signs noted. Blood pressure is 117/65, pulse 102. The patient is afebrile. LUNGS: Have rales at the bases bilaterally. CARDIOVASCULAR: S1, S2. No rub. ABDOMEN: Soft. Positive bowel sounds. EXTREMITIES: No edema. LABORATORY DATA: H and H, 9.1 and 28.4. Chemistries sodium 135, potassium 3.4, chloride is 95, carbon 24, BUN 39, creatinine is 1.77. IMPRESSION AND PLAN: 1. Acute kidney injury on chronic kidney disease stage 4. The patient is responding well to IV Lasix. However, we will do one session of dialysis for ultrafiltration only today with about 3 L UF. We will likely watch off dialysis over the weekend and continue IV Lasix. Repeat a followup chest x-ray and BNP level to see whether or not there is an improvement in both the CHF exacerbation as well as clinically improving from more fluid removal. 2. Hypertension, blood pressure stable. Continue low-dose midodrine. Keep off blood pressure lowering medications for now. 3. Congestive heart failure exacerbation/fluid overload. Continue with IV Lasix. We will do one session of dialysis today for ultrafiltration only and watch off dialysis over the weekend unless absolutely needed. 4. Mild hypokalemia. Continue with oral replacement. Calvin Hurd MD TH/MODL /[id number]
--- NOTE | 2020-03-03 10:15 | Progress Note ---
DATE: 03/03/2020 SUBJECTIVE: The patient is very well-known to me for low-grade lymphoma. The patient's hemoglobin today is 9.1, white count 11,390, platelets are 91,000. As dictated yesterday, this is of concern as on 02/26, her platelets were 266,000. The medications, she is on, heparin for catheter pack. I have asked for HIT panel. I will confine myself to Hematology. The platelets, at this time, are not at a critical level, however, they are progressively going down. I will follow up closely. Carlos Rivers MD MAQ/MODL /[id number] cc: Blake Kohler MD
--- NOTE | 2020-03-03 11:13 | NUR ---
BED SIDE HEMODIALYSIS TREATMENT IN PROGRESS, PATIENT TOLERATING PROCEDURE WELL. WILL CONTINUE TO MONITOR.
--- NOTE | 2020-03-03 13:00 | NUR ---
BED SIDE HEMODIALYSIS TREATMENT COMPLETED. 2.6 LITERS REMOVED PER DIALYSIS NURSE. LAST B/P 112/59, HR 90. SCHEDULED MEDICATIONS GIVEN ORDERED. ASSISTED WITH LUNCH. IN BED RESTING WITH CALL LIGHT AT REACH.
[2020-03-03] MEDS: PRAVASTATIN 20 MG TAB PO SCH (13:03)
[2020-03-03] MEDS: ALLOPURINOL 100 MG TAB PO SCH (13:03)
[2020-03-03] MEDS: MULTIVITAMINS/MINERALS TAB PO SCH (13:03)
[2020-03-03] MEDS: POTASSIUM CHLORIDE 20 MEQ TAB CR PO SCH (13:03)
[2020-03-03] MEDS: MIDODRINE HCL 5 MG TABLET PO SCH ×2 (13:03→17:18)
[2020-03-03] MEDS: FERROUS SULFATE 325 MG TAB PO SCH (13:03)
[2020-03-03] MEDS: CYANOCOBALAMIN 1,000 MCG TAB PO SCH (13:03)
--- NOTE | 2020-03-03 13:57 | Progress Note ---
DATE: SUBJECTIVE: The patient is less confused. She had ultrafiltration yesterday. Nephrology is recommended observing her over the weekend and possibly discharging her on Friday. PHYSICAL EXAMINATION: VITAL SIGNS: The patient is afebrile. The blood pressure is 112/60, saturation is 100% on 2 L, and the pulse is 90. HEENT: Shows no facial swelling or erythema. LYMPHATIC: Shows no submandibular, cervical, or supraclavicular adenopathy. CARDIAC: Reveals regular rate and rhythm with normal S1 and S2. LUNGS: Auscultation of lungs reveals crackles at the bases. There is no wheezing. ABDOMEN: Soft and nontender. EXTREMITIES: There is no leg edema. LABORATORY DATA: White blood cell count is 11.4, hemoglobin is 9.1, and the platelet count is 91. BUN to creatinine ratio is 39 to 1.77, potassium is 3.4, and the blood sugar is 150. IMPRESSION: 1. Ysskf-zc-ovbaeaj renal failure. 2. Thrombocytopenia. 3. Anemia secondary to chronic blood loss. 4. Low-grade B-cell lymphoma. 5. Diastolic heart failure. PLAN: 1. Out of bed as tolerated. 2. Continue to monitor renal function and electrolytes. 3. Continue to monitor blood counts. Nitin Moreno MD [facility]/JAYLIN /[id number]
--- NOTE | 2020-03-03 15:49 | NUR ---
PATIENT EXERCISED IN ROOM WITH PHYSICAL THERAPY. BACK IN BED WITH CALL LIGHT AT REACH.
[2020-03-03] MEDS: EPOETIN ALFA-EPBX 10,000 UNIT/ML VIAL SC SCH (17:00)
--- NOTE | 2020-03-03 19:17 | NUR ---
BED SIDE REPORT GIVEN TO ON COMING NURSE. PATIENT IN BED RESTING WITH CALL LIGHT AT REACH.
[2020-03-04] VITALS (7 sets, daily range): BP systolic 90–110; BP diastolic 45–66
[2020-03-04] MEDS: FUROSEMIDE INJ 10 MG/ML 4 ML VIAL IV SCH ×3 (06:21→21:37)
[2020-03-04 07:04] LABS: ANION GAP 17.1 mmol/L (8-16); CALCIUM 8.3 mg/dL (8.4-10.2); CREATININE, SERUM 1.79 mg/dL (0.57-1.11); MAGNESIUM 1.5 MG/DL (1.3-2.1); PHOSPHORUS 3.3 MG/DL (2.3-4.7); POTASSIUM 3.1 mmol/L (3.5-5.1)
[2020-03-04] MEDS: INSULIN REGULAR, HUMAN 100 UNIT/1 ML 3ML VIAL SQ SCH ×4 (07:50→21:38)
[2020-03-04] MEDS: POTASSIUM CHLORIDE 20 MEQ TAB CR PO SCH ×2 (08:45→14:09)
[2020-03-04] MEDS: ALLOPURINOL 100 MG TAB PO SCH (08:45)
[2020-03-04] MEDS: PRAVASTATIN 20 MG TAB PO SCH (08:45)
[2020-03-04] MEDS: MIDODRINE HCL 5 MG TABLET PO SCH ×2 (08:45→16:50)
[2020-03-04] MEDS: MULTIVITAMINS/MINERALS TAB PO SCH (08:45)
[2020-03-04] MEDS: FERROUS SULFATE 325 MG TAB PO SCH (08:45)
[2020-03-04] MEDS: PANTOPRAZOLE 40 MG 10ML VIAL IV SCH ×2 (08:45→18:28)
[2020-03-04] MEDS: CYANOCOBALAMIN 1,000 MCG TAB PO SCH (08:45)
--- NOTE | 2020-03-04 09:06 | Diagnostic Imaging Report ---
EXAMINATION: CHEST SINGLE (PORTABLE) INDICATION: COMPARISON: Multiple prior chest x-rays including most recent on 03/02/2020. FINDINGS: TUBES and LINES: Left chest wall cardiac pacemaker. LUNGS: Normal lung volumes. There is mildly prominent interstitial lung markings, improved from most recent prior examination. No consolidations. PLEURA: No pleural effusion or pneumothorax. HEART AND MEDIASTINUM: The cardiomediastinal silhouette is mildly enlarged. Atherosclerotic calcification of the thoracic aortic arch. BONES AND SOFT TISSUES: No acute osseous lesion. Soft tissues are unremarkable. UPPER ABDOMEN: No free air under the diaphragm. IMPRESSION: Mild cardiomegaly with interval improvement in pulmonary edema. Signed by: Ivonne Reaves MD on 03/04/2020 9:03 AM
[2020-03-04 11:57] LABS: BASOPHILS % 0.3 % (0.0-1.0); EOSINOPHILS # (AUTO) 0.1 (0.0-0.4); EOSINOPHILS % 1.9 % (0.0-6.0); HEMOGLOBIN 10.4 g/dL (12.0-16.0); LYMPHOCYTES # (AUTO) 0.7 (1.0-3.2); LYMPHOCYTES % 9.4 % (18.0-39.1); MEAN CORPUSCULAR HEMOGLOBIN 27.7 pg (28-32); MEAN CORPUSCULAR HGB CONC 31.5 g/dL (31-35); MEAN CORPUSCULAR VOLUME 87.8 fL (81-99); MONOCYTES # (AUTO) 0.1 (0.2-0.8); MONOCYTES % 1.5 % (4.4-11.3); NEUTROPHILS % 86.3 % (38.7-80.0); PLATELET COUNT 70 x10e3/uL (140-360); RED BLOOD COUNT 3.76 x10e6/uL (3.6-5.1); RED CELL DISTRIBUTION WIDTH 14.2 % (11.7-14.4)
[2020-03-04 12:35] LABS: BAND NEUTROPHILS % (MANUAL) 2 %; LYMPHOCYTES % (MANUAL) 5 % (19-48); MONOCYTES % (MANUAL) 1 % (3.4-9.0); NEUTROPHILS % (MANUAL) 92 % (40-74)
[2020-03-04 12:45] LABS: PLATELET ESTIMATE ADEQUATE; PLATELET MORPHOLOGY COMMENT NORMAL; RBC MORPHOLOGY COMMENT NORMAL
--- NOTE | 2020-03-04 13:01 | Progress Note ---
DATE: SUBJECTIVE: The patient is seen and examined today. The patient is very lethargic and tired. Denies any headache or dizziness. No chest pain or shortness of breath. Lethargic. OBJECTIVE: GENERAL: Alert, awake, communicative. HEENT: Normocephalic and atraumatic. Sclerae pink. Conjunctivae clear. NECK: Supple. CHEST: Decreased breath sounds in the bases. ABDOMEN: Soft. EXTREMITIES: No edema LABORATORY AND IMAGING DATA: Reviewed. ASSESSMENT AND PLAN: The patient with history of multiple medical condition includes left low-grade lymphoma. Currently in hospital and having thrombocytopenia. Last platelet count was 91. Concern about induced-platelet antibody causing thrombocytopenia. The antibody level is still pending. At this point, we will continue current care. Repeat CBC. We will monitor the patient closely. Further recommendation after complete workup. We will follow the patient closely. MD ANKIT Paul/JAYLIN /[id number]
[2020-03-04] MEDS ORDERED: MAGNESIUM SULFATE 2GM/50ML 50 ML IV ONE (14:00)
--- NOTE | 2020-03-04 14:12 | Progress Note ---
DATE: SUBJECTIVE: The patient was evaluated by Hematology yesterday for thrombocytopenia. The patient is more lucid. She is not having fevers. PHYSICAL EXAMINATION: VITAL SIGNS: Blood pressure is 90/45, saturation is 95% on 2 L. Pulse is 85. HEENT: Shows no facial swelling or erythema. LYMPHATIC: Shows no submandibular, cervical or supraclavicular adenopathy. CARDIAC: Reveals regular rate and rhythm with normal S1 and S2. LUNGS: Auscultation of lungs reveals rhonchorous breath sounds bilaterally. There is no wheezing. ABDOMEN: Soft and nontender. There is no rebound or guarding. EXTREMITIES: Shows no leg edema or calf tenderness. There is no cyanosis or clubbing. LABORATORY DATA: BUN to creatinine ratio 51 to 1.79. Potassium is 3.1 and the other electrolytes are within normal limits. RADIOGRAPHIC DATA: Chest x-ray shows mild cardiomegaly. IMPRESSION: 1. Mwhbg-rh-wijwhos renal failure. 2. Anemia secondary to chronic blood loss. 3. Thrombocytopenia. 4. Low-grade B-cell lymphoma. 5. Diastolic heart failure. PLAN: 1. Out of bed as tolerated. 2. Continue to monitor renal function. 3. Continue to monitor platelet count and blood counts. 4. Discussed disposition with Dr. Kohler and case liner. Nitin Moreno MD [facility]/MODL /[id number]
--- NOTE | 2020-03-04 14:47 | Progress Note ---
DATE: 03/04/2020 Nephrology Followup Note SUBJECTIVE: The patient appears comfortable, denies any nausea or shortness of breath. She was ultrafiltered for 2 L yesterday. She is on IV Lasix q.8 hours. OBJECTIVE: VITAL SIGNS: Blood pressure 90/45, pulse 85 per minute, and oxygen saturation 95% on room air. Intake and output shows at least 1500 mL of urine in the last 24 hours. NECK: Without JVP. Supple. CHEST: Auscultation bilaterally reveals clear lung boyce, without wheezing or crepitations. CARDIOVASCULAR: Shows S1 and S2 without rub or gallop. ABDOMEN: Soft and nondistended. EXTREMITIES: Without pitting edema. NEUROLOGICAL: Alert and oriented x3. DIAGNOSTIC DATA: Chest x-ray reportedly showing improvement in the pulmonary edema. LABORATORY DATA: Hemoglobin is 10.4. Creatinine stable at 1.79, BUN 51, potassium low at 3.1, sodium 136, and bicarb 25. Magnesium 1.5. BNP 3100. IMPRESSION: 1. Acute kidney injury, appears improved. 2. Chronic kidney disease, stage 4. 3. Congestive heart failure/fluid overload, improving with ultrafiltration yesterday and now on IV Lasix on scheduled basis. 4. Anemia secondary to chronic kidney disease. 5. Hypokalemia. RECOMMENDATIONS: 1. Continue IV Lasix q.8 hours. 2. Monitor urine output. 3. Replace magnesium and potassium. 4. Continue to follow the patient. Jose Luis Uribe MD [facility]/MODL /[id number]
--- NOTE | 2020-03-04 18:08 | NUR ---
patient up in bed, Alert with no distress, family (POA), was here earlier, call light in reach, bed alarm ON
[2020-03-05] VITALS (8 sets, daily range): BP systolic 93–118; BP diastolic 42–79
[2020-03-05] MEDS: FUROSEMIDE INJ 10 MG/ML 4 ML VIAL IV SCH ×3 (06:00→21:45)
[2020-03-05] MEDS: INSULIN REGULAR, HUMAN 100 UNIT/1 ML 3ML VIAL SQ SCH ×4 (07:38→21:46)
[2020-03-05] MEDS: ALLOPURINOL 100 MG TAB PO SCH (08:52)
[2020-03-05] MEDS: CYANOCOBALAMIN 1,000 MCG TAB PO SCH (08:52)
[2020-03-05] MEDS: PANTOPRAZOLE 40 MG 10ML VIAL IV SCH ×2 (08:52→17:09)
[2020-03-05] MEDS: PRAVASTATIN 20 MG TAB PO SCH (08:52)
[2020-03-05] MEDS: POTASSIUM CHLORIDE 20 MEQ TAB CR PO SCH (08:52)
[2020-03-05] MEDS: MIDODRINE HCL 5 MG TABLET PO SCH ×2 (08:52→17:09)
[2020-03-05] MEDS: MULTIVITAMINS/MINERALS TAB PO SCH (08:52)
[2020-03-05] MEDS: FERROUS SULFATE 325 MG TAB PO SCH (08:52)
[2020-03-05] MEDS: ACETAMINOPHEN 325 MG TAB PO PRN (10:19)
--- NOTE | 2020-03-05 11:38 | NUR ---
IM- progress note O/N see below REVIEW OF SYSTEMS: unreliable PHYSICAL EXAMINATION GENERAL: A tired-appearing woman resting in bed. HEENT: Anicteric. Pupils respond to light. CARDIOVASCULAR: Normal S1 and S2. PALPABLE LEFT CHEST PPM. LUNGS: Moderate breath sounds. : BUENO ABDOMEN: Soft, nontender and nondistended. EXTREMITIES: No edema or calf tenderness. NEUROLOGICAL: Alert and oriented times 3. She moves all extremities. SKIN: Dry. PSYCHIATRIC: Normal affect. LABS: Reviewed. MEDICATIONS: Reviewed. 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 cct>35mins 10-1 check labs; improving; pressor off; lasix gtt remains; I/O 916/4050 10-2 Possible silent aspirations. BLood counts essential unchanged. 10-3 worsened LFTs. 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 10-4 Renal fn fluctuates from 11 to 16; appears stable; Remains oliguric; will need monitoring here by nephrology; may progress to HD, no urgent need at this time. 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 D#5/7 Merrem 10/5 Merrem D#6/7. Renal fn poor; output low; BUN continues to rise; check labs. 10-6 worsened renal fn- started on HD; D#7/7 merrem. 10-7 stop merrem; now 3 treatments of HD. 10-8 BUN and GFR improving; monitor; 10-9 continue renal mgmt and monitoring; monitor I/O; producing more urine 10-10 continued renal mgmt. 10-11 I/O 1010/3050. monitor renal fn. MYA MILLARD MD, PHD.
--- NOTE | 2020-03-05 11:40 | Progress Note ---
DATE: 03/05/2020 SUBJECTIVE: Mary Wray is an 89-year-old female with lymphoma, who was referred to me for multitude of problems, which were enumerated in the consultation. Hematologically, she is very stable with a hemoglobin of 10.4, white count 6890, platelets still run low at 70,000, which is of concern as dictated before. HIT panel is pending. Spoken to the Nephrology not to use the heparin while dialysis as this could be HIT. This is definitely not because of systemic chemotherapy with bendamustine and Rituxan, which she got approximately a month back. I will follow this patient closely. MD HAIR Rich/JAYLIN /[id number]
--- NOTE | 2020-03-05 11:55 | Progress Note ---
DATE: 03/05/2020 Nephrology Followup Note SUBJECTIVE: Followup of acute kidney injury on CKD 4, on IV Lasix for congestive heart failure. The patient is lying supine in bed, on nasal cannula oxygen. Looks very comfortable. Denies any shortness of breath or nausea. OBJECTIVE: GENERAL: Urine output more than 3 L in the last 24 hours. VITAL SIGNS: Blood pressure is stable. NECK: Without JVP. Supple. CHEST: Bilateral symmetrical air entry, no wheezing. CARDIOVASCULAR: Normal S1, S2. ABDOMEN: Soft, depressible, nondistended. EXTREMITIES: Without pitting edema or cyanosis. NEUROLOGICAL: The patient is awake and appears oriented. LABORATORY DATA: Not sent this morning yet. IMPRESSION: 1. Acute kidney injury, appeared improving. We will follow up on labs today. 2. Chronic kidney disease, stage IV. 3. Congestive heart failure/fluid overload, excellent response to intermittent IV Lasix. 4. Hypokalemia, already on 40 mEq p.o. daily potassium replacement. However, may need more depending on today's lab results. 5. Anemia, secondary to chronic kidney disease. Continue to monitor. Discussed with RN, specially to follow up on BMP results from today. Jose Luis Uribe MD [facility]/MODL /[id number]
[2020-03-05 13:10] LABS: ANION GAP 17.1 mmol/L (8-16); CALCIUM 8.6 mg/dL (8.4-10.2); CREATININE, SERUM 1.76 mg/dL (0.57-1.11); POTASSIUM 4.1 mmol/L (3.5-5.1)
--- NOTE | 2020-03-05 13:55 | Progress Note ---
DATE: SUBJECTIVE: The patient is still sleeping frequently, although she is not confused when arouse. PHYSICAL EXAMINATION: VITAL SIGNS: Blood pressure is 116/60, saturation is 100% on 2 L. Pulse is 82. HEENT: Shows no facial swelling or erythema. LYMPHATIC: Shows no submandibular, cervical, or supraclavicular adenopathy. CARDIAC: Reveals regular rate and rhythm with normal S1 and S2. LUNGS: Auscultation of lungs shows decreased breath sounds at the bases. There is no wheezing. ABDOMEN: Soft and nontender. There is no rebound or guarding. EXTREMITIES: Shows no leg edema or calf tenderness. There is no cyanosis or clubbing. IMPRESSION: 1. Ypiva-kg-ryooand renal failure. 2. Anemia secondary to chronic blood loss. 3. Thrombocytopenia. 4. Low-grade B-cell lymphoma. 5. Diastolic heart failure. PLAN: 1. Continue to monitor blood counts and renal function. 2. Out of bed as tolerated. 3. Discussed disposition with Dr. Kohler and Case Management. Nitin Moreno MD [facility]/MODL /[id number]
--- NOTE | 2020-03-05 17:18 | NUR ---
patient resting in bed, Alert with no distress, up in bed eating dinner, call light in reach, bed alarm ON
[2020-03-06] VITALS (9 sets, daily range): BP systolic 86–117; BP diastolic 45–63
[2020-03-06] MEDS: FUROSEMIDE INJ 10 MG/ML 4 ML VIAL IV SCH ×3 (06:31→21:36)
--- NOTE | 2020-03-06 06:54 | NUR ---
RECEIVED BEDSIDE SHIFT REPORT FROM OFF GOING NURSE. PATIENT IS RESTING IN BED, NO ACUTE DISTRESS NOTED AT THIS TIME. CALL LIGHT WITHIN REACH. BED IN THE LOWEST POSITION.
[2020-03-06] MEDS: INSULIN REGULAR, HUMAN 100 UNIT/1 ML 3ML VIAL SQ SCH ×4 (08:30→21:00)
[2020-03-06] MEDS: CYANOCOBALAMIN 1,000 MCG TAB PO SCH (09:06)
[2020-03-06] MEDS: PANTOPRAZOLE 40 MG 10ML VIAL IV SCH ×2 (09:06→17:09)
[2020-03-06] MEDS: POTASSIUM CHLORIDE 20 MEQ TAB CR PO SCH (09:06)
[2020-03-06] MEDS: PRAVASTATIN 20 MG TAB PO SCH (09:06)
[2020-03-06] MEDS: ALLOPURINOL 100 MG TAB PO SCH (09:06)
[2020-03-06] MEDS: MIDODRINE HCL 5 MG TABLET PO SCH ×3 (09:06→17:09)
[2020-03-06] MEDS: MULTIVITAMINS/MINERALS TAB PO SCH (09:06)
[2020-03-06] MEDS: FERROUS SULFATE 325 MG TAB PO SCH (09:06)
--- NOTE | 2020-03-06 09:29 | Progress Note ---
DATE: SUBJECTIVE: The patient is less confused. She is not requiring any further dialysis. She was re-evaluated by Nephrology this morning. PHYSICAL EXAMINATION: VITAL SIGNS: Blood pressure is 86/50, heart rate is 92, and she is afebrile. HEENT: Shows no facial swelling or erythema. LYMPHATIC: Shows no submandibular, cervical, or supraclavicular adenopathy. CARDIAC: Reveals regular rate and rhythm with normal S1 and S2. LUNGS: Auscultation of lungs shows decreased breath sounds at the bases. There is no wheezing. ABDOMEN: Soft and nontender. There is no rebound or guarding. IMPRESSION: 1. Kppkb-sz-qokjajy renal failure. 2. Anemia secondary to chronic blood loss. 3. Thrombocytopenia. 4. Low-grade B-cell lymphoma. PLAN: 1. Repeat CMP and CBC now. 2. Arrange for disposition. MD LITO Beebe/JAYLIN /[id number]
--- NOTE | 2020-03-06 09:44 | Progress Note ---
DATE: 03/06/2020 Renal Progress Note SUBJECTIVE: Followed for acute kidney injury on chronic kidney disease. The patient's kidney function has remained stable yesterday and day. There was not much of a change in her BUN and creatinine. She is also nonoliguric, responding well to IV Lasix. The patient did not have dialysis over the weekend. She has not had any overt respiratory distress. She has excellent urine output. No nausea, no vomiting, no shortness of breath today. OBJECTIVE: VITAL SIGNS: Have been noted. Blood pressure is high 90s to low 100s over 50s, 92 pulse, afebrile. LUNGS: Mostly clear to auscultation bilaterally with minimal rales at the bases. CARDIOVASCULAR: S1, S2. No rub. ABDOMEN: Soft. Positive bowel sounds. EXTREMITIES: No edema. LABORATORY DATA: Sodium 130, potassium 4.1, chloride 94, bicarb of 23, BUN 51, creatinine is 1.76, glucose 266. IMPRESSION AND PLAN: 1. Acute kidney injury on chronic kidney disease, stage 4. Suspect the patient will be able to come off dialysis. We will do stat labs today and probably check labs again tomorrow and do a followup chest x-ray tomorrow. If the patient's kidney function is holding steady, the patient is making excellent amount of urine and chest x-ray is improved, then from Renal standpoint, we will take her out the dialysis catheter and likely the patient would be able to be placed on oral tablets or diuretic tablets and then be discharged in next 1 to 2 days. 2. Hypertension/hypotension. Continue low-dose midodrine. We will increase dose to 5 mg three times a day. 3. Hyponatremia/fluid overload. Continue with IV Lasix diuresis. We will do stat basic metabolic panel today and repeat labs again tomorrow and do follow up chest x-ray to see whether or not the patient needs more fluid removal. Calvin Hurd MD /MODL /[id number]
[2020-03-06 10:14] LABS: ANION GAP 14.8 mmol/L (8-16); CALCIUM 8.1 mg/dL (8.4-10.2); CREATININE, SERUM 1.58 mg/dL (0.57-1.11); POTASSIUM 3.8 mmol/L (3.5-5.1)
--- NOTE | 2020-03-06 15:25 | Progress Note ---
DATE: 03/06/2020 SUBJECTIVE: Mary Wray is an 89-year-old female who had presented with multitude of problems. Hematologically, the patient is stable. On 03/04, hemoglobin of 10.4, white count of 6890, and platelets 70,000. HIT is still pending. Chemistry; sodium 132, potassium 3.8, chloride is 94, CO2 of 27, BUN 42, and creatinine 1.58. Having had multiple conversations with the patient's family that the patient will not be given any systemic chemotherapy until she goes home. I will communicate with them again even though this morning my staff had communicated and they insist to have a meeting at the office. I insist to have a meeting with the patient present. MD HAIR Rich/JAYLIN /[id number]
[2020-03-06] MEDS: EPOETIN ALFA-EPBX 10,000 UNIT/ML VIAL SC SCH (17:09)
--- NOTE | 2020-03-06 18:35 | NUR ---
Nutrition Intervention Note RD Recommendation(s) for Physician: - Continue current diet - Encourage Glucerna Shakes - Encourage po intake and assist with meals as needed Plan of Care: RD following, monitoring for tolerance and adequacy. Diet and ONS rec's. Nutrition reason for involvement: follow up RD Assessment 03/06: Follow up. Pt with improved po intake since HD initiated, noted 50-75% meal intake. No GI distress reported. Declining supplementation. Current diet remains appropriate per current lab trend. Chart reviewed. 03/02: Follow up. Chart reviewed. Pt had been receiving dialysis. Pt continues with poor intake and reports she is not eating much. Pt also mentioned she had not been drinking the Glucerna nutrition supplements since she stated they are too sweet. Offered pt a different nutrition supplement, but pt was not interested. Pt was unsure of her usual weight or of any recent weight changes. Current recommendations remain appropriate. Will continue to monitor. 02/27: Follow up. Pt sleeping at time of visit, receiving first HD tx at time of visit- previously refusing HD and non-tunneled catheter placed today. Pt continues with poor intake, noted 0-25% of meals per chart. No BM documented, no GI distress documented. Chart reviewed. Current rec's remain appropriate. Potential improvement of intake with initiation of HD, will continue to monitor. 02/22: 89 YOM admitted for fever and hyponatremia with recent hx of lymphoma undergoing chemotherapy. Pt assessed today per MST screen. Pt with confusion, unable to obtain nutrition hx at this time. Pt appears well nourished. Hyponatremia improving, off Levophed. Pt with poor intake since admit, with episode of dry heaving while working with PT. Chart reviewed. Rec's provided. Will continue to monitor. Principal Problems/Diagnoses: fever, hyponatremia, leukocytosis, lymphoma PMH: B cell lymphoma, DM, HTN, diabetic neuropathy, gout, anemia, chronic renal insufficiency GI: abd soft, non-tender, round, last BM 03/05 Skin: stage 2 PU sacrum Labs: 03/06: Na 132, K 3.8, BUN 42, Cr 1.58, Gluc 227, POC Gluc 151-219 03/02: Na 135, K 3.5, BUN 30, Cr 1.58, Glu 121, Ca 8.4 02/27: Na 129, K 4.2, BUN 101, Cr 4.16, Gluc 111, POC Gluc 114-156 02/22: Na 126, K 4.2, BUN 58, Cr 2.79, Gluc 254, Ca 9.1, Phos 5.8, Mg 1.9 Meds: insulin, protonix, lasix, kdur, feosol, vitamin B12, MVI with minerals, zofran, pravastatin Ht: 65 in Wt: 176.5 (03/06) 176.5 lbs (03/02) 189.39 lb (02/27) 221 lb (02/22) questionable wt loss, of note pt is on a diuretic BMI: 36.8 kg/m2 IBW: 125 lb Malnutrition Evaluation (02/28/20) The patient does not meet criteria for a specified degree of malnutrition at this time. Will re-evaluate at follow-up as appropriate. Energy intake: moderate acute, <50% intake x >5 days Weight loss: ITZ, questionable wt changes since admit Fat loss: none observed, ample skinfold thickness Muscle loss: none observed, shoulder round Supporting Evidence: Fluid accumulation: none Functional Status: unable to evaluate Nutrition Prescription (Diet Order): Cardiac, mechanical soft, chopped, 1800 ADA, extra gravy Estimated Nutritional Needs: 2349-8054 calories/day (22-25 kcal/kg IBW) 85-114 g protein/day (1.5-2 g pro/kg IBW) Diet Adequacy: Not meeting calorie needs, Not meeting protein needs Diet Tolerance: tolerating po Diet Education Needs Assessment: Diet education not indicated. Nutrition Care Level: high Nutrition Diagnosis: Inadequate energy and protein intake related to current condition as evidenced by poor po intake and not meeting needs. Goal: Patient will meet 75-100% of estimated needs by follow up Progress: progressing Interventions: - Fat, mineral, texture modified diet, Commercial beverage, Recommended Modifications, Multivitamin/mineral supplement therapy, Collaboration with other providers Monitoring/Evaluation: - Total energy intake, Total protein intake, Modified diet, Liquid supplement, Weight change Signed: Jewell Gómez RD, LD, [facility]
--- NOTE | 2020-03-06 19:14 | NUR ---
BEDSIDE SHIFT REPORT GIVEN TO ONCOMING NURSE. PATIENT IS IN STABLE CONDITION, NO ACUTE DISTRESS NOTED AT THIS TIME. CALL LIGHT WITHIN REACH. BED IN THE LOWEST POSITION. BED ALARM ON.
[2020-03-07] VITALS: BP 97/42
[2020-03-07 04:00] VITALS: BP 112/51
[2020-03-07] MEDS: FUROSEMIDE INJ 10 MG/ML 4 ML VIAL IV SCH (06:15)
--- NOTE | 2020-03-07 06:44 | NUR ---
RECEIVED BEDSIDE SHIFT REPORT FROM OFF GOING NURSE. PATIENT IS RESTING IN BED, NO S/S OF DISTRESS NOTED AT THIS TIME. CALL LIGHT WITHIN REACH. BED IN THE LOWEST POSITION.
--- NOTE | 2020-03-07 07:43 | Diagnostic Imaging Report ---
EXAMINATION: CHEST SINGLE (PORTABLE) INDICATION: ^chf ^[id number] ^[id number] COMPARISON: 03/04/2020 FINDINGS: AP view TUBES and LINES: Stable left chest wall cardiac device and right internal jugular central line. Stable right chest wall port. LUNGS: Lungs are well inflated. Unchanged mild central vascular congestion. PLEURA: No pleural effusion or pneumothorax. Linear density overlying right lateral right lung, probably skin fold. HEART AND MEDIASTINUM: The cardiomediastinal silhouette is unremarkable. BONES AND SOFT TISSUES: No acute osseous lesion. Soft tissues are unremarkable. UPPER ABDOMEN: No free air under the diaphragm. IMPRESSION: No acute thoracic abnormality. Unchanged mild central vascular congestion. Linear density overlying right lateral lung, probably skin fold. Attention on follow-up examination. Signed by: Dr. Basilio Pickett MD on 03/07/2020 7:39 AM
[2020-03-07 08:03] VITALS: BP 106/56
[2020-03-07] MEDS: INSULIN REGULAR, HUMAN 100 UNIT/1 ML 3ML VIAL SQ SCH ×4 (08:03→20:33)
[2020-03-07 08:04] VITALS: BP 106/56
[2020-03-07] MEDS: MIDODRINE HCL 5 MG TABLET PO SCH ×3 (08:18→17:17)
[2020-03-07] MEDS: FERROUS SULFATE 325 MG TAB PO SCH (08:18)
[2020-03-07] MEDS: PANTOPRAZOLE 40 MG 10ML VIAL IV SCH ×2 (08:18→17:17)
[2020-03-07] MEDS: CYANOCOBALAMIN 1,000 MCG TAB PO SCH (08:20)
[2020-03-07] MEDS: PRAVASTATIN 20 MG TAB PO SCH (08:20)
[2020-03-07] MEDS: ALLOPURINOL 100 MG TAB PO SCH (08:20)
[2020-03-07] MEDS: POTASSIUM CHLORIDE 20 MEQ TAB CR PO SCH (08:20)
[2020-03-07] MEDS: MULTIVITAMINS/MINERALS TAB PO SCH (08:20)
[2020-03-07 09:43] LABS: BASOPHILS % 0.4 % (0.0-1.0); EOSINOPHILS # (AUTO) 0.1 (0.0-0.4); EOSINOPHILS % 1.7 % (0.0-6.0); HEMATOCRIT 32.8 % (34.2-44.1); HEMOGLOBIN 10.1 g/dL (12.0-16.0); LYMPHOCYTES # (AUTO) 2.1 (1.0-3.2); LYMPHOCYTES % 38.8 % (18.0-39.1); MEAN CORPUSCULAR HEMOGLOBIN 27.1 pg (28-32); MEAN CORPUSCULAR HGB CONC 30.8 g/dL (31-35); MEAN CORPUSCULAR VOLUME 87.9 fL (81-99); MONOCYTES # (AUTO) 0.2 (0.2-0.8); MONOCYTES % 3.2 % (4.4-11.3); NEUTROPHILS # (AUTO) 2.9 (2.1-6.9); NEUTROPHILS % 55.3 % (38.7-80.0); PLATELET COUNT 107 x10e3/uL (140-360); RED BLOOD COUNT 3.73 x10e6/uL (3.6-5.1); RED CELL DISTRIBUTION WIDTH 14.6 % (11.7-14.4)
[2020-03-07 10:15] LABS: ALBUMIN 2.2 g/dL (3.5-5.0); ALBUMIN/GLOBULIN RATIO 0.6 (0.8-2.0); ANION GAP 14.5 mmol/L (8-16); CALCIUM 8.2 mg/dL (8.4-10.2); CREATININE, SERUM 1.71 mg/dL (0.57-1.11); MAGNESIUM 1.4 MG/DL (1.3-2.1); PHOSPHORUS 3.3 MG/DL (2.3-4.7); POTASSIUM 4.5 mmol/L (3.5-5.1)
--- NOTE | 2020-03-07 12:00 | NUR ---
NON-TUNNELED CVC DISCONTINUED WITH TIP INTACT, PRESSURE APPLIED TO SITE, DRESSING APPLIED.
--- NOTE | 2020-03-07 13:07 | NUR ---
WOUND CARE CONSULT 89 YO FEMALE HX OF fever ,lymphoma KRISTA 0N MODERATE PUP STATUS AND INTERVENTIONS ALTERNATING PRESSURE MATTRESS LABS: WBC- 6.89 HGB- 10.4 GLUCOSE-277 SKIN ASSESSMENT COMPLETE PATIENT PRESENTS WITH SACRAL STAGE 2 4CM 1CM X0.1CM LEFT GLUTEAL STAGE 2 ULCER 2CM X0.5CM X0.1CM RECOMMENDATIONS: NURSING TO CONTINUE TO MONITOR PATIENT AND KEEP SKIN CLEAN AND FREE FROM LOOSE STOOL OR IRRITATING MOISTURE AND CONTINUE TO FOLLOW MODERATE PUP INTERVENTIONS NURSING TO CONTINUE TO GET PATIENT OUT OF BED FOR MEALS AND MUCH TOLERATED NURSING TO CLEAN SACRAL STAGE 2 AND LEFT GLUTEAL STAGE 2 ULCER WITH NORMAL SALINE DAILY AND APPLY PURACOL (COLLAGEN) TO WOUND BASE AND COVER WITH ALLEVYN FOAM DRESSING Addendum: 03/07/20 at 1312 by Avery Mcgowan RN Amended: Links added.
--- NOTE | 2020-03-07 13:10 | NUR ---
IM- progress note O/N see below REVIEW OF SYSTEMS: unreliable PHYSICAL EXAMINATION GENERAL: A tired-appearing woman resting in bed. HEENT: Anicteric. Pupils respond to light. CARDIOVASCULAR: Normal S1 and S2. PALPABLE LEFT CHEST PPM. LUNGS: Moderate breath sounds. : BUENO ABDOMEN: Soft, nontender and nondistended. EXTREMITIES: No edema or calf tenderness. NEUROLOGICAL: Alert and oriented times 3. She moves all extremities. SKIN: Dry. PSYCHIATRIC: Normal affect. LABS: Reviewed. MEDICATIONS: Reviewed. 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 cct>35mins 10-1 check labs; improving; pressor off; lasix gtt remains; I/O 916/4050 10-2 Possible silent aspirations. BLood counts essential unchanged. 10-3 worsened LFTs. 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 10-4 Renal fn fluctuates from 11 to 16; appears stable; Remains oliguric; will need monitoring here by nephrology; may progress to HD, no urgent need at this time. 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 D#5/7 Merrem 10/5 Merrem D#6/7. Renal fn poor; output low; BUN continues to rise; check labs. 10-6 worsened renal fn- started on HD; D#7/7 merrem. 10-7 stop merrem; now 3 treatments of HD. 10-8 BUN and GFR improving; monitor; 10-9 continue renal mgmt and monitoring; monitor I/O; producing more urine 10-10 continued renal mgmt. 10-11 I/O 1010/3050. monitor renal fn. 10-12 I/O 1210/4850. Thrombocytopenia- HIT pending; check labs; 03-07-20: doing well; continue diet; continue PT; d/c planning to SNF MYA MILLARD MD, PHD.
--- NOTE | 2020-03-07 13:59 | NUR ---
PATIENT REFUSING TO EAT WITH STAFF. DID NOT EAT ANY BREAKFAST OR LUNCH. ONLY DRINKING FLUIDS. DR. MILLARD NOTIFIED, STARTED PATIENT ON MEGACE 40MG DAILY. ALSO FAMILY MEMBER REQUESTING TO COME IN FEED PATIENT. CALL DR. MILLARD TO NOTIFY. NO ANSWER, LVM. WAITING FOR A CALL BACK.
[2020-03-07] MEDS: MEGESTROL ACETATE 40 MG TAB PO SCH (14:09)
--- NOTE | 2020-03-07 14:20 | Progress Note ---
DATE: 03/07/2020 SUBJECTIVE: Mary Wray is an 89-year-old female, referred to me for evaluation of multitude of problems, which I have enumerated in my consultation. The patient's family has been extremely curious as to what the outcome and what the plan was. I had a long discussion between 30 minutes to 45 minutes yesterday as they claimed that they have the power of finance attorney. The patient wants to go home and I did tell them that she cannot go home in a condition as she is in with extreme weakness, she is going to fall and break a hip. The family suggested that they will take her home. I disclosed that this will be up to Dr. Jose F Lozano as she is under Dr. Jose F Lozano at this time. I have also explained that her kidney functions have gotten much better. BUN and creatinine being 42 and 1.58 respectively on 03/06. However, it will be to call of the spare parts clerk whether she has recovered completely or not. The sodium also has come up to 132. I have also explained that the hyponatremia was unrelated to chemotherapy and/or her lymphoma as lymphomas do not cause paraneoplastic syndrome, hyponatremia, small cell lung cancer. The patient's family will interact with Dr. Jose F Lozano and plan her discharge. Once at home and she feels better, I will see her in the office in approximately a month. I am going to withhold the chemotherapy as I cannot cure a low-grade lymphoma. Discussion will be depending on what her status would be in a month or so. The patient is still is bed confined, fairly weak, being taken care by Dr. Jose F Lozano. I have confined myself to Hematology/Oncology. MD HAIR Rich/MODL /[id number] cc: Blake Kohler MD
--- NOTE | 2020-03-07 16:15 | Progress Note ---
DATE: 03/07/2020 Renal Progress Note SUBJECTIVE: Followed for acute kidney injury on chronic kidney disease. The patient's kidney function continues to improve. Creatinine is actually down to 1.58. The patient is actually better than her previous baseline. No nausea, no vomiting, no shortness of breath. The patient is responding well to IV Lasix. OBJECTIVE: VITAL SIGNS: Have been noted. Blood pressure is 106/56, pulse is 94, afebrile. LUNGS: Clear to auscultation bilaterally. CARDIOVASCULAR: S1, S2. No rub. ABDOMEN: Soft. Positive bowel sounds. EXTREMITIES: No edema. LABORATORY DATA: Sodium 132, potassium 3.8, BUN 42, creatinine is 1.58, and glucose is 227. IMPRESSION AND PLAN: 1. Acute kidney injury on chronic kidney disease, stage 3. We will discontinue the chronic kidney disease stage 3 to stage 4. We will discontinue the dialysis catheter. The patient is nonoliguric. BUN, creatinine are better, off dialysis, and does not require any further dialysis. Fluid overload is also improved. 2. Hypertension, blood pressure is better with the increased dose of midodrine. We will continue to monitor. 3. Hyponatremia/fluid overload. We will continue with Lasix. We will decrease dose to 40 mg IV q.12 hours and continue potassium daily and we will make further recommendations. No further need for dialysis. We will discontinue dialysis catheter. Calvin Hurd MD TH/MODL /[id number]
--- NOTE | 2020-03-07 19:05 | NUR ---
BEDSIDE SHIFT REPORT GIVEN TO ONCOMING NURSE. PATIENT IS IN STABLE CONDITION, NO ACUTE DISTRESS NOTED AT THIS TIME. DAUGHTER IS AT BEDSIDE. CALL LIGHT WITHIN REACH. BED IN THE LOWEST POSITION.
[2020-03-07 20:00] VITALS: BP 99/58
[2020-03-07] MEDS ORDERED: FUROSEMIDE INJ 10 MG/ML 4 ML VIAL IV SCH (21:00)
[2020-03-07] MEDS: ACETAMINOPHEN 325 MG TAB PO PRN (21:20)
[2020-03-08] VITALS: BP 103/42
[2020-03-08 04:00] VITALS: BP 107/48
--- NOTE | 2020-03-08 05:30 | NUR ---
Spoke with daughter, Miim, this morning. Daughter states that her mother stated several times that she did not want to go to a SNF at discharge. Mimi has now stated that she would like for her mother to possibly go home with homehealth and PT. Mimi would like to speak to MD prior to making final decision. Dr. Kohler notified.
--- NOTE | 2020-03-08 05:42 | NUR ---
D/C summary Principal dx: Hyponaremia- rehydrate ALFONSO due to hyponatremia- correct with hypertonic saline Pulmonary edema- fluid changed to hypertonic to reduce volume; IV lasix Pleural effusion- diurese as needed Hypomagnesemia- replace Severe anemia- check panel; stool occult Hypertensive heart ds with Cardiomegaly- amlodipine JOAQUIN- IVF; required Temporary dialysis. 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 cct>35mins 10-1 check labs; improving; pressor off; lasix gtt remains; I/O 916/4050 10-2 Possible silent aspirations. BLood counts essential unchanged. 10-3 worsened LFTs. 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 10-4 Renal fn fluctuates from 11 to 16; appears stable; Remains oliguric; will need monitoring here by nephrology; may progress to HD, no urgent need at this time. 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 D#5/7 Merrem 10/5 Merrem D#6/7. Renal fn poor; output low; BUN continues to rise; check labs. 10-6 worsened renal fn- started on HD; D#7/7 merrem. 10-7 stop merrem; now 3 treatments of HD. 10-8 BUN and GFR improving; monitor; 10- continue renal mgmt and monitoring; monitor I/O; producing more urine 10-10 continued renal mgmt. 10-11 I/O 1010/3050. monitor renal fn. 10-12 I/O 1210/4850. Thrombocytopenia- HIT pending; check labs; 03-07-20: doing well; continue diet; continue PT; d/c planning to SNF - CKD3/4. f/u I/O; Pt urinated 800 cc overnight (12 hours)- not yet documented; d/c planning; d/c home with PT stable f/u pcp2 days and 1 week and 1 week d/c>35mins MYA O. VENICE, MD, PHD.
[2020-03-08] MEDS ORDERED: FUROSEMIDE40 MG PO (05:49)
[2020-03-08] MEDS ORDERED: MEGESTROL ACETA40 MG PO (05:49)
[2020-03-08] MEDS ORDERED: VITAMIN B-121000 MCG PO (05:49)
[2020-03-08] MEDS ORDERED: MIDODRINE HCL5 MG PO (05:49)
[2020-03-08] MEDS ORDERED: PANTOPRAZOLE SO40 MG PO (05:49)
[2020-03-08 06:30] LABS: ANION GAP 13.1 mmol/L (8-16); CREATININE, SERUM 1.58 mg/dL (0.57-1.11); MAGNESIUM 1.4 MG/DL (1.3-2.1); PHOSPHORUS 3.4 MG/DL (2.3-4.7); POTASSIUM 4.1 mmol/L (3.5-5.1)
[2020-03-08] MEDS: INSULIN REGULAR, HUMAN 100 UNIT/1 ML 3ML VIAL SQ SCH ×2 (07:30→11:30)
[2020-03-08 08:00] VITALS: BP 105/63
[2020-03-08 08:24] VITALS: BP 107/48
[2020-03-08] MEDS ORDERED: FUROSEMIDE 40 MG TAB PO SCH (09:00)
[2020-03-08] MEDS ORDERED: POTASSIUM CHLORIDE 20 MEQ TAB CR PO SCH (09:00)
--- NOTE | 2020-03-08 09:08 | Progress Note ---
DATE: 03/08/2020 Renal Progress Note SUBJECTIVE: Followed for acute kidney injury on chronic kidney disease, stage 3. The patient's creatinine continues to improve. Creatinine is down to 1.58, potassium is 4.1, sodium is 134. No nausea. No vomiting. Shortness of breath is improved. The patient's dialysis catheter has been removed. She does not require any further dialysis at this point. OBJECTIVE: VITAL SIGNS: Have been noted. Blood pressure is stable on low-dose midodrine 107/48, pulse 89, afebrile. LUNGS: Clear to auscultation bilaterally mostly. CARDIOVASCULAR: S1, S2. No rub. ABDOMEN: Soft. Positive bowel sounds. EXTREMITIES: No edema. LABORATORY DATA: Have been reviewed. BUN is 42, creatinine is 1.6, potassium is 4.1. IMPRESSION AND PLAN: 1. Acute kidney injury on chronic kidney disease, stage 3. The patient's creatinine is now consistent with a GFR of 31 after a minute, which would be at a stage 3. Remove dialysis catheter. We will continue oral diuresis with Lasix. From Renal standpoint, the patient is cleared for discharge. She can follow up in the outpatient setting. 2. Hypertension. Blood pressure is controlled. Continue low-dose midodrine to keep blood pressure up. The patient tends to run hypotension. 3. Fluid overload, largely resolved. We will switch over to oral Lasix and the patient can be discharged from renal standpoint on oral Lasix 40 mg twice a day. Calvin Hurd MD /MODL /[id number]
[2020-03-08 12:00] VITALS: BP 114/56
[2020-03-08] MEDS: MIDODRINE HCL 5 MG TABLET PO SCH ×2 (13:00→13:33)
--- NOTE | 2020-03-08 13:29 | NUR ---
ORDER RECEIVED FOR HOME HEALTH SN/PT EVAL AND TREAT, LOCAL [employer] TRUCK DRIVER. MET W THE PT AND DTR AT THE BEDSIDE. DISCUSSED CHOICE; LIST GIVEN FOR IN NETWORK AGENCIES. DTR CHOSE [facility]: [phone] / FAX: [phone]. DISCUSSED FREQUENCY OF VISITS BY RN/PT AND LOCAL COMPANY TRUCK DRIVER. 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 VERBALIZED UNDERSTANDING. STATES HER MOTHER HAS ALL THE DME SHE NEEDS AT HOME, BUT SHE MAY NEED A BED. DISCUSSED HAVING HOME PT MAKE RECOMMENDATIONS FOR HOME. INFORMED HER PCP WOULD BE ABLE TO ASSIST W GETTING A HOSPITAL BED IF NEEDED. VERBALIZED UNDERSTANDING. PT TO BE TRANSPORTED HOME VIA AMBULANCE.
[2020-03-08] MEDS: MULTIVITAMINS/MINERALS TAB PO SCH (13:34)
[2020-03-08] MEDS: FERROUS SULFATE 325 MG TAB PO SCH (13:34)
[2020-03-08] MEDS: PRAVASTATIN 20 MG TAB PO SCH (13:34)
[2020-03-08] MEDS: CYANOCOBALAMIN 1,000 MCG TAB PO SCH (13:34)
[2020-03-08] MEDS: ALLOPURINOL 100 MG TAB PO SCH (13:34)
[2020-03-08] MEDS: MEGESTROL ACETATE 40 MG TAB PO SCH (13:34)
--- NOTE | 2020-03-08 13:34 | NUR ---
daughter at bedside. pt initially stated she would not take any more medicine or food until she went home. daughter spoke with patient, was able to convince patient to take morning medicines.
--- NOTE | 2020-03-08 15:13 | NUR ---
SPOKE WITH DR RICARDO WHO STATES REMOVE BUENO PRIOR TO DISCHARGE.
--- NOTE | 2020-03-08 15:24 | NUR ---
BUENO REMOVED, TIP INTACT. PT TOLERATED WELL.
[2020-03-08] MEDS: ACETAMINOPHEN 325 MG TAB PO PRN (15:27)
[2020-03-08 16:00] VITALS: BP 93/50
[2020-03-08] MEDS ORDERED: PANTOPRAZOLE SOD 40 MG TABEC PO SCH (16:30)
--- NOTE | 2020-03-08 18:06 | Progress Note ---
DATE: 03/08/2020 SUBJECTIVE: Ms. Mary Wray is an 89-year-old female with low-grade lymphoma. The patient is still bed confined. Reasonable CBC with a hemoglobin of 10.1, hematocrit of 32.8, white count 5310, and platelets of 107,000, which have gone up from 70,000 on 03/07. Chemistry remains reasonable with sodium of 134, potassium 4.1, chloride 99, CO2 of 26, and BUN and creatinine 42 and 1.58 respectively. The chest x-ray on 03/07 again showed mild central venous congestion. I had a conference with the patient's family. I have informed them that I will not give any chemotherapy unless she has recovered completely as this is an incurable low-grade lymphoma and the chemotherapy can be delayed as the performance status of this patient is very poor. Thank you for allowing me to participate in management of this patient. MD HAIR Rich/JAYLIN /[id number]
== END 2020-03-08 16:36 | disposition home health service (06) | DRG 871 ==
LOC: ER 17:40 → ERHOLD 21:20 → ICU 23:25 → MED/SURG3 02-24 15:10
PROVIDERS: ADMIT Internal Medicine; ATTEND Internal Medicine
PROC: 30233N1 Transfusion of Nonautologous Red Blood Cells into Peripheral Vein, Percutaneous Approach (ICD-10-PCS; 2020-02-22)
PROC: 02HV33Z Insertion of Infusion Device into Superior Vena Cava, Percutaneous Approach (ICD-10-PCS; principal; 2020-02-28)
PROC: 5A1D70Z Performance of Urinary Filtration, Intermittent, Less than 6 Hours Per Day (ICD-10-PCS; 2020-02-28)
DX: A41.9 Sepsis, unspecified organism (principal); J15.9 Unspecified bacterial pneumonia; N17.0 Acute kidney failure with tubular necrosis; J69.0 Pneumonitis due to inhalation of food and vomit; G93.41 Metabolic encephalopathy; I50.33 Acute on chronic diastolic (congestive) heart failure; E87.1 Hypo-osmolality and hyponatremia; C85.90 Non-Hodgkin lymphoma, unspecified, unspecified site; C91.10 Chronic lymphocytic leukemia of B-cell type not having achieved remission; I13.0 Hypertensive heart and chronic kidney disease with heart failure and stage 1 through stage 4 chronic kidney disease, or unspecified chronic kidney disease; N18.4 Chronic kidney disease, stage 4 (severe); M10.9 Gout, unspecified; E11.40 Type 2 diabetes mellitus with diabetic neuropathy, unspecified; Z95.0 Presence of cardiac pacemaker; E86.1 Hypovolemia; I12.9 Hypertensive chronic kidney disease with stage 1 through stage 4 chronic kidney disease, or unspecified chronic kidney disease; E11.22 Type 2 diabetes mellitus with diabetic chronic kidney disease; Z79.899 Other long term (current) drug therapy; D63.1 Anemia in chronic kidney disease; E87.6 Hypokalemia; D69.6 Thrombocytopenia, unspecified; D50.0 Iron deficiency anemia secondary to blood loss (chronic)
CPT/HCPCS: 36415; 36556; 70450; 71045; 74230; 74470; 76770; 76937; 77001; 80048; 80053; 80061; 80076; 81001; 82570; 82728; 82784; 82948; 83036; 83540; 83605; 83735; 83880; 83930; 83935; 84100; 84156; 84300; 84443; 84466; 84550; 85025; 86022; 86704; 86705; 86706; 86850; 86900; 86920; 87040; 87086; 87340; 90962; 93005; 93306; 94640; 96372; 97139; 99251; 99284; C1769; J0696; J1642; J1644; J1817; J1940; J2001; J2405; J2920; J3370; J3475; J3480; J7030; J7050; P9016; Q0162